=== PATIENT | male | born 1965 | race African-American/Black ===

== ENCOUNTER 2022-01-20 16:39 | Emergency (ER) | payer MEDICARE, OTHER, SELFPAY ==
[2022-01-20 19:14] VITALS: BP 132/70; PULSE 100; RESP 16; TEMP 37.2; O2SAT 98; BMI 49.5
--- NOTE | 2022-01-21 04:33 | ED.EXTPRO ---
HPI - Extremity Problem General Chief complaint: Extremity Problem Stated complaint: rt ankle pain Time Seen by Provider: 01/20/22 17:08 Source: patient Mode of arrival: EMS Limitations: no limitations History of Present Illness HPI Narrative: Patient with chronic right ankle problem came by ambulance no recent injury asking for Barry wrap to his right ankle which has chronic pain patient very rude refusing to be examined Related Data Allergies Allergy/AdvReac Type Severity Reaction Status Date / Time Unable to Assess Allergy Verified 01/20/22 17:08 Review of Systems Review of Systems: Yes all other systems are reviewed and are negative [facility] Social History Social History Advance Directives: No Advance Directives Information Provided: No Physical Exam Vital Signs: Vital Signs: Last Vital Signs Temp 98.9 F 01/20/22 19:14 Pulse 100 01/20/22 19:14 Resp 16 01/20/22 19:14 BP 132/70 01/20/22 19:14 Pulse Ox 98 01/20/22 19:14 O2 Del Method 01/20/22 19:14 BMI result Body Mass Index 49.5 Extrem: Other: Right ankle; No obvious deformity no bony tenderness slight soft tissue swelling neurovascular intact MDM - Extremity (Nontraumatic) MDM Narrative Medical decision making narrative: Barry wrap was applied by the nurse discharge patient home Discharge Plan Discharge Clinical Impression: Ankle pain, right Patient Disposition: Home, Self-Care Instructions: Ankle Sprain (ED) Additional Instructions: Local care as advised Take Tylenol/Motrin Apply Barry wrap Interventions: LWBS Worksheet Last Done: 01/21/22 01:06
== END 2022-01-21 04:46 | disposition home or self-care (01) ==
PROVIDERS: Emergency Provider Internal Medicine
DX: M25.571 Pain in right ankle and joints of right foot (principal)
CPT/HCPCS: 99282

== ENCOUNTER 2022-01-26 03:02 | Emergency (ER) | payer MEDICARE, OTHER, SELFPAY ==
--- NOTE | 2022-01-26 03:40 | PC.NURSE ---
pt in wheelchair in waiting room attempted to use the bathroom and was incont of large amount of urine all over the floor. 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 pt ambulated to chair in triage with steady giat.
[2022-01-26 03:42] VITALS: BP 149/96; PULSE 98; RESP 16; TEMP 36.9; O2SAT 99; BMI 49.5
--- NOTE | 2022-01-26 03:53 | PC.NURSE ---
xr attempted and pt refused. pt states he doesnt need a xr and just wants a ice pack . during this time the pt was using a hair comb and was combing his hair with the affected wrist. no deformity noted. ice pack given to pt per request. this is the 2nc xr in the past week.
[2022-01-26 06:40] VITALS: BP 162/89; PULSE 102; RESP 14; TEMP 36.6; O2SAT 95
--- OUTSIDE RECORDS SUMMARY | 2022-01-26 08:54 | XMS_ITS | Continuity of Care Document ---
:1965 Author Organization [facility] Address [address] [place] [address]- Care Team Providers Name Role Phone Not on Staff, PCP Primary Care Physician Unavailable Encounter [facility] [place] Date(s): 01/24/22 - 01/25/22 [facility] [address] [place] [address]- Discharge Disposition: A-D/C Home Attending Physician: Devika Duque DO Admitting Physician: Devika Duque DO Referring Physician: Not on Staff, Referring MD Allergies, Adverse Reactions, Alerts No Known Medication Allergies Medications Invega Hafyera Intramuscular, Once a month, 0 Refills, Maintenance, 01/23/22 0:39:00 EDT, Partial fill upon patientrequest if the prescription is for a schedule II opioid drug. Start Date: 01/23/22 Status: Orderednaproxen 250 mg oral tablet 250 mg, 1, tablet, By Mouth, 2 times a day, for 7 days, # 14 tablet, Refills 0, Tot. Refills 0, Acute 01/30/22 0:47:00 EDT, 01/23/22 0:47:00 EDT, Print Requisition, Partial fill upon patient request ifthe prescription is for a schedule II opioid drug. Start Date: 01/23/22 Stop Date: 01/30/22 Status: Ordered Problem List Condition Confirmation Course Effective Dates Status Health Stat us Informant Severe obesity Confirmed Active Vital Signs Most recent to oldest [Reference Range]: 1 Oxygen Saturation [94-100 %] 96 % (01/24/22 10:18 PM) Pulse Rate [55-90 bpm] 95 bpm *H* (01/24/22 10:18 PM) Blood Pressure [90-138/55-84 mm Hg] 118/63 mm Hg (01/24/22 10:18 PM) Respiratory Rate [16-30 br/min] 17 br/min (01/24/22 10:18 PM) Temperature [96.8-100.4 DegF] 99.2 DegF (01/24/22 10:18 PM) Mode of Delivery (Oxygen) Room air (01/24/22 10:18 PM) Temperature Route Oral (01/24/22 10:18 PM) Social History Social History Type Response Smoking Status 10 or more cigarettes (1/2 p ack or more)/day in last 30 days entered on: 01/21/22 Sex Patient Care team information PersonnelName: Not on Staff, PCP
--- OUTSIDE RECORDS SUMMARY | 2022-01-26 08:54 | XMS_ITS | Continuity of Care Document ---
:1965 Author Organization [facility] Address [address] [place] [address]- Care Team Providers Name Role Phone Not on Staff, PCP Primary Care Physician Unavailable [place] [facility] [place] 01/01/22 [facility] [address] [place] [address]- Encounter Diagnosis Right foot pain (Final) - 01/01/22 Discharge Disposition: A-D/C Home Attending Physician: Jose Hallman MD Admitting Physician: Jose Hallman MD Referring Physician: Not on Staff, Referring MD Allergies, Adverse Reactions, Alerts No Known Medication Allergies Vital Signs Most recent to oldest [Reference 1 2 3 Range]: Oxygen Saturation [94-100 %] 100 % 98 % 99 % (01/01/22 12:07 PM) (01/01/22 8:15 AM) (01/01/22 3:46 AM) Pulse Rate [55-90 bpm] 92 bpm 96 bpm 94 bpm *H* *H* *H* (01/01/22 12:07 PM) (01/01/22 8:15 AM) (01/01/22 3:46 AM) Blood Pressure [90-138/55-84 mm 112/87 mm Hg 142/101 mm Hg 170/129 mm Hg Hg] (01/01/22 12:07 PM) *H* *H* (01/01/22 8:15 AM) (01/01/22 3:46 AM ) Respiratory Rate [16-30 br/min] 18 br/min 18 br/min (01/01/22 12:07 PM) (01/01/22 3:46 AM) Temperature [96.8-100.4 DegF] 97.9 DegF (01/01/22 8:15 AM) Mode of Delivery (Oxygen) Room air Room air Room a ir (01/01/22 12:07 PM) (01/01/22 8:15 AM) (01/01/22 3:46 AM) Blood pressure sites Arm, right Arm, right Arm, right (01/01/22 12:07 PM) (01/01/22 8:15 AM) (01/01/22 3:46 AM) Temperature Route Oral (01/01/22 8:15 AM) Care Team PersonnelName: Not on Staff, PCP
--- OUTSIDE RECORDS SUMMARY | 2022-01-26 08:54 | XMS_ITS | Continuity of Care Document ---
:1965 Author Organization [facility] Address [address] [place] [address]- Care Team Providers Name Role Phone Not on Staff, PCP Primary Care Physician Unavailable Encounter [facility] [place] Date(s): 01/04/22 - 01/04/22 [facility] [address] [place] [address]- Discharge Disposition: A-D/C Walkout Attending Physician: Not on Staff, Attending MD Admitting Physician: Not on Staff, Admitting MD Referring Physician: Not on Staff, Referring MD Allergies, Adverse Reactions, Alerts No Known Medication Allergies Care Team PersonnelName: Not on Staff, PCP
--- OUTSIDE RECORDS SUMMARY | 2022-01-26 08:54 | XMS_ITS | Continuity of Care Document ---
:1965 Author Organization [facility] Address [address] [place] [address]- Care Team Providers Name Role Phone Not on Staff, PCP Primary Care Physician Unavailable [place] [facility] [place]22 [facility] [address] [place] [address]- Discharge Disposition: A-D/C Walkout Attending Physician: Not on Staff, Attending MD Admitting Physician: Not on Staff, Admitting MD Referring Physician: Not on Staff, Referring MD Allergies, Adverse Reactions, Alerts No Known Medication Allergies Vital Signs Most recent to oldest [Reference Range]: 1 2 Oxygen Saturation [94-100 %] 98 % 100 % (01/16/22 2:25 PM) (01/16/22 2:15 PM) Pulse Rate [55-90 bpm] 105 bpm 103 bpm *H* *H* (01/16/22 2:25 PM) (01/16/22 2:15 PM) Blood Pressure [90-138/55-84 mm Hg] 123/83 mm Hg (01/16/22 2:25 PM) Respiratory Rate [16-30 br/min] 20 br/min (01/16/22 2:25 PM) Temperature [96.8-100.4 DegF] 97.4 DegF (01/16/22 2:25 PM) Mode of Delivery (Oxygen) Room air Room air (01/16/22 2:25 PM) (01/16/22 2:15 PM) Temperature Route Oral (01/16/22 2:25 PM) Care Team PersonnelName: Not on Staff, PCP
--- OUTSIDE RECORDS SUMMARY | 2022-01-26 08:54 | XMS_ITS | Continuity of Care Document ---
:1965 Author Organization [facility] Address [address] [place] [address]- Care Team Providers Name Role Phone Not on Staff, PCP Primary Care Physician Unavailable Encounter [facility] [place] Date(s): 01/15/22 - 01/16/22 [facility] [address] [place] [address]- Discharge Disposition: A-D/C Walkout Attending Physician: Not on Staff, Attending MD Admitting Physician: Not on Staff, Admitting MD Referring Physician: Not on Staff, Referring MD Allergies, Adverse Reactions, Alerts No Known Medication Allergies Vital Signs Most recent to oldest [Reference Range]: 1 2 Oxygen Saturation [94-100 %] 100 % 97 % (01/15/22 7:31 PM) (01/15/22 7:05 PM) Pulse Rate [55-90 bpm] 100 bpm 93 bpm *H* *H* (01/15/22 7:31 PM) (01/15/22 7:05 PM) Blood Pressure [90-138/55-84 mm Hg] 147/100 mm Hg *H* (01/15/22 7:31 PM) Respiratory Rate [16-30 br/min] 18 br/min (01/15/22 7:31 PM) Temperature [96.8-100.4 DegF] 98.9 DegF (01/15/22 7:31 PM) Mode of Delivery (Oxygen) Room air (01/15/22 7:31 PM) Blood pressure sites Arm, left (01/15/22 7:31 PM) Temperature Route Oral (01/15/22 7:31 PM) Care Team PersonnelName: Not on Staff, PCP
--- OUTSIDE RECORDS SUMMARY | 2022-01-26 08:54 | XMS_ITS | Continuity of Care Document ---
:1965 Author Organization [facility] Address [address] [place] [address]- Care Team Providers Name Role Phone Not on Staff, PCP Primary Care Physician Unavailable Encounter [facility] [place] Date(s): 01/14/22 - 01/15/22 [facility] [address] [place] [address]- Discharge Disposition: A-D/C Walkout Attending Physician: Not on Staff, Attending MD Admitting Physician: Not on Staff, Admitting MD Referring Physician: Not on Staff, Referring MD Allergies, Adverse Reactions, Alerts No Known Medication Allergies Vital Signs Most recent to oldest 1 2 3 [Reference Range]: Oxygen Saturation [94-100 %] 99 % 99 % 98 % (01/15/22 12:58 PM) (01/15/22 9:28 AM) (01/15/22 5: 46 AM) Pulse Rate [55-90 bpm] 93 bpm 92 bpm 88 bpm *H* *H* (01/15/22 5:46 AM ) (01/15/22 12:58 PM) (01/15/22 9:28 AM) Blood Pressure [90-138/55-84 168/109 mm Hg 169/108 mm Hg 161 /110 mm Hg mm Hg] *H* *H* *H* (01/15/22 12:58 PM) (01/15/22 9:28 AM) (01/15/22 5: 46 AM) Respiratory Rate [16-30 18 br/min 18 br/min 18 br/mi n br/min] (01/15/22 12:58 PM) (01/15/22 9:28 AM) (01/15/22 4: 30 AM) Temperature [96.8-100.4 DegF] 98.2 DegF 98 DegF (01/15/22 4:30 AM) (01/15/22 12:56 AM) Mode of Delivery (Oxygen) Room air Room air Room a ir (01/15/22 12:58 PM) (01/15/22 9:28 AM) (01/15/22 5: 46 AM) Blood pressure sites Arm, right Arm, right Arm, left (01/15/22 12:58 PM) (01/15/22 9:28 AM) (01/15/22 5: 46 AM) Temperature Route Oral Oral Oral (01/15/22 12:58 PM) (01/15/22 9:28 AM) (01/15/22 4: 30 AM) Care Team PersonnelName: Not on Staff, PCP
--- OUTSIDE RECORDS SUMMARY | 2022-01-26 08:54 | XMS_ITS | Continuity of Care Document ---
:1965 Author Organization [facility] Address [address] [place] [address]- Care Team Providers Name Role Phone Not on Staff, PCP Primary Care Physician Unavailable [place] [facility] [place] 01/02/22 - 01/03/22 [facility] [address] [place] [address]- Discharge Disposition: A-D/C Home Attending Physician: Dangelo Cotto MD Admitting Physician: Dangelo Cotto MD Referring Physician: Not on Staff, Referring MD Allergies, Adverse Reactions, Alerts No Known Medication Allergies Vital Signs Most recent to oldest [Reference 1 2 3 Range]: Oxygen Saturation [94-100 %] 92 % 95 % 98 % *L* (01/03/22 12:20 AM) (01/02/22 9:56 P M) (01/03/22 2:08 AM) Pulse Rate [55-90 bpm] 88 bpm 93 bpm 80 bpm (01/03/22 2:08 AM) *H* (01/02/22 9:56 PM ) (01/03/22 12:20 AM) Blood Pressure [90-138/55-84 mm 147/93 mm Hg 169/81 mm Hg 144/109 mm Hg Hg] *H* *H* *H* (01/03/22 2:08 AM) (01/03/22 12:20 AM) (01/02/22 9:56 PM) Respiratory Rate [16-30 br/min] 17 br/min (01/02/22 9:56 PM) Temperature [96.8-100.4 DegF] 97.9 DegF 98 DegF (01/03/22 12:20 AM) (01/02/22 9:56 PM) Blood pressure sites Arm, left Arm, right (01/03/22 2:08 AM) (01/03/22 12:20 AM) Temperature Route Oral Oral Oral (01/03/22 2:08 AM) (01/03/22 12:20 AM) (01/02/22 9:56 PM) Care Team PersonnelName: Not on Staff, PCP
--- OUTSIDE RECORDS SUMMARY | 2022-01-26 08:55 | XMS_ITS | Continuity of Care Document ---
:1965 Author Organization [facility] Address [address] [place] [address]- Care Team Providers Name Role Phone Not on Staff, PCP Primary Care Physician Unavailable Encounter [facility] [place] Date(s): 01/18/22 - 01/19/22 [facility] [address] [place] [address]- Discharge Disposition: A-D/C Walkout Attending Physician: Not on Staff, Attending MD Admitting Physician: Not on Staff, Admitting MD Referring Physician: Not on Staff, Referring MD Allergies, Adverse Reactions, Alerts No Known Medication Allergies Vital Signs Most recent to oldest [Reference Range]: 1 2 Oxygen Saturation [94-100 %] 99 % 100 % (01/19/22 6:38 AM) (01/19/22 12:15 AM) Pulse Rate [55-90 bpm] 68 bpm 96 bpm (01/19/22 6:38 AM) *H* (01/19/22 12:15 AM) Blood Pressure [90-138/55-84 mm Hg] 122/65 mm Hg 146/ 87 mm Hg (01/19/22 6:38 AM) *H* (01/19/22 12:15 AM) Respiratory Rate [16-30 br/min] 16 br/min 16 br/mi n (01/19/22 6:38 AM) (01/19/22 12:15 AM) Temperature [96.8-100.4 DegF] 97.5 DegF 98.6 DegF (01/19/22 6:38 AM) (01/19/22 12:15 AM) Mode of Delivery (Oxygen) Room air Room air (01/19/22 6:38 AM) (01/19/22 12:15 AM) Blood pressure sites Arm, left Arm, left (01/19/22 6:38 AM) (01/19/22 12:15 AM) Temperature Route Oral Oral (01/19/22 6:38 AM) (01/19/22 12:15 AM) Care Team PersonnelName: Not on Staff, PCP
--- NOTE | 2022-01-26 09:15 | PC.NURSE ---
PT REQUESTED TO BE PUSHED OUT STATING HE WASNT WATING FOR A PROVIDER. HE IS INCONSISTENT WITH COMPLAINTS. DEMANDING TO HAVE WRIST AND LEGS WRAPPED
== END 2022-01-26 09:30 | disposition left against medical advice (07) ==
PROVIDERS: Emergency Provider Emergency Medicine
DX: M25.532 Pain in left wrist (principal)
CPT/HCPCS: 99282

== ENCOUNTER 2022-02-19 19:31 | Emergency (ER) | payer MEDICARE, OTHER, SELFPAY ==
[2022-02-19 20:00] VITALS: BP 130/70; BP 132/74; PULSE 80; PULSE 86; RESP 21; TEMP 36.8; O2SAT 95; O2SAT 99; BMI 35.9
--- NOTE | 2022-02-19 23:15 | ED_ITS ---
HPI - Extremity Injury (Lower) General Chief Complaint: Extremity Injury, Lower Stated Complaint: right leg pain Time Seen by Provider: 02/19/22 22:30 History of Present Illness HPI Narrative: Patient is a 57-year-old male presents today with having leg swelling. Pain to the right leg. Also on the left. Patient had been having leg cramps for long time. He is homeless. Been going to different hospitals. Patient stays in a wheelchair. Patient was in the rain. Denies any coughing congestion upper respiratory symptoms denies chest pain diaphoresis. No fever no chills. Related Data Allergies Allergy/AdvReac Type Severity Reaction Status Date / Time No Known Allergies Allergy Verified 02/19/22 20:05 Review of Systems Review of Systems: Positive leg swelling. Patient is always in a sitting position. No chest pain or diaphoresis no fever Yes all other systems are reviewed and are negative [facility] Past Medical History Attestation statement: The following information was validated with the patient. Social History Social History Advance Directives: No Advance Directives Information Provided: No Physical Exam Vital Signs: Vital Signs: Last Vital Signs Temp 98.2 F 02/19/22 20:00 Pulse 80 02/19/22 20:00 Resp 21 H 02/19/22 20:00 BP 132/74 02/19/22 20:00 Pulse Ox 95 02/19/22 20:00 O2 Del Method 02/19/22 20:00 BMI result Body Mass Index 35.9 Appearance: Alert. Oriented X3. No acute distress. Eyes: Pupils equal, round and reactive to light. ENT: Pharynx normal. Neck: Normal inspection. Neck supple. No lymph nodes noted. No crepitus CVS: Normal heart rate and rhythm. Pulses normal. Normal S1 and S2 Respiratory: No respiratory distress. Breath sounds normal. No Wheezing. No rales Abdomen: Soft and nontender. No rigidity. No distention. good BS x4 Skin: Skin warm and dry. Normal skin color. Normal skin turgor. Extremities: lower extremity shows 2+ pitting edema bilaterally. No warmth to touch. Patient's socks were extremely wet there were removed. There is no gross lesions noted. Pulses were present. Sensation grossly intact. Neuro: Oriented X 3. No motor deficit. No sensory deficit. Moving all extermities. No slurred speech MDM - Extremity Injury (Lower) MDM Narrative Medical decision making narrative: Patient offer x-ray labs ultrasound to rule out possibility of DVT versus congestive heart failure versus liver problems causing patient to have lower extremity edema. Patient refused to have any of those studies done. Once his socks back on. Once issues back on. Is leaving. Understood the risk including heart attack strokes, congestive heart failure infections. Patient states understanding is leaving against medical advice Medical Records Attestation: I reviewed the patient's medical records. Lab Data Attestation: I reviewed the patient's lab results. Discharge Plan Discharge Clinical Impression: Edema Patient Disposition: Left Against Medical Advice Instructions: Against Medical Advice (ED), Edema (ED) Referrals: [facility] [Physician] - 02/21/22 Stand Alone Forms: Against Medical Advice
--- NOTE | 2022-02-19 23:34 | PC.NURSE ---
pt declined bloodwork, u/s, xray, offer of dry sock/shoes. d/c AMA.
== END 2022-02-19 23:36 | disposition left against medical advice (07) ==
PROVIDERS: Emergency Provider Emergency Medicine Emergency Medical Services
DX: R60.0 Localized edema (principal); M79.604 Pain in right leg
CPT/HCPCS: 99282

== ENCOUNTER 2022-02-22 18:20 | Emergency (ER) | payer MEDICARE, OTHER, SELFPAY ==
[2022-02-22 18:31] VITALS: BP 184/95; PULSE 91; O2SAT 95
[2022-02-22 18:54] VITALS: BP 116/85; PULSE 97; RESP 18; TEMP 36.7; O2SAT 99; BMI 50.1
--- NOTE | 2022-02-22 21:08 | ED.EXTPRO ---
HPI - Extremity Problem General Chief complaint: Extremity Problem Stated complaint: LEG PAIN Time Seen by Provider: 02/22/22 20:58 Source: patient Mode of arrival: EMS Limitations: no limitations History of Present Illness HPI Narrative: 57-year-old male who presents emergency department for evaluation of right-sided leg pain. Patient states that he had a football injury to his right leg in the 1970s and since then he has had chronic pain in his leg. He states the pain is worse if he is exposed to cold. He states he came to the hospital today because he had increased pain. He states that he has a constant, throbbing pain in his right hip, right knee and right leg. He states he is able to ambulate with a cane. The pain is 8/10 at its worse and is relieved by Tylenol. The patient was seen here in the emergency department on 02/19/2022 and was offered testing such as an ultrasound and an x-ray but he refused this stating that he has had these tests in the past and he signed out against medical advice. He states that he has gone to multiple hospitals for this pain. He states that he went to [facility] at least 5 times and each time they turned him out into the cold in the middle the night and this makes his pain worse. He did tell me that he is homeless he staying in a detention. He denied being ill in any other way. Patient was also seen in the emergency department on 01/21/2022 with a similar complaint. Related Data Allergies Allergy/AdvReac Type Severity Reaction Status Date / Time No Known Allergies Allergy Verified 02/19/22 20:05 Review of Systems Review of Systems: Yes all other systems are reviewed and are negative [facility] Past Medical History [facility] Narrative: Past medical history: Chronic right leg pain, obesity. Social history: He states that he is homeless and he states in a detention. He states that he gets disability money and can not solve his own home was problem. He smokes 10 cigarettes per day times many years. He denies alcohol use. He denies drug use. Medical History Severe obesity Social History Social History Advance Directives: No Advance Directives Information Provided: No Physical Exam Vital Signs: Vital Signs: Last Vital Signs Temp 98.0 F 02/22/22 18:54 Pulse 97 02/22/22 18:54 Resp 18 02/22/22 18:54 BP 116/85 02/22/22 18:54 Pulse Ox 99 02/22/22 18:54 O2 Del Method 02/22/22 18:54 BMI result Body Mass Index 50.1 Const: Other: Awake, alert, male patient, he does not appear to be in distress, does answer questions appropriately HEENT: Other: Head is normal cephalic and atraumatic Resp: Other: No respiratory distress Extrem: Other: Patient refused to get undressed. The patient's lower extremities both appear to be chronically swollen, on his right lower extremity, he has trace to 1+ pitting edema, he has no tenderness with palpation of his ankle, knee or hip. He is able to move his extremities without any difficulty. Course Course Course Narrative: 57-year-old male who presents emergency department for evaluation of chronic right lower extremity pain. Patient has been seen at least twice here in the emergency department and reports that he has been seen at least 5 times at [facility] with similar complaints. The patient refused to get undressed. On my exam of his right lower extremity he has chronic edema to his lower extremities which appears to be symmetric. He is able to move his right lower extremity without any difficulty has no significant tenderness palpation over his right hip, right knee your right ankle joints. Patient was given Tylenol 975 mg orally. The patient will be discharged. I did tell the patient that it was discharged home and he is requesting that we call an ambulance to sent him to [facility] I told him that that is not possible. I told him that if he calls 911 from this hospital that which is bring him back here. The patient got upset and told me that the wants to be transferred to a hospital in [place] which again I told him that we cannot do this. Discharge Plan Discharge Clinical Impression: Leg pain, right, Chronic pain syndrome Patient Disposition: Home, Self-Care Additional Instructions: You have pain in your right leg which is chronic. Take Tylenol (acetaminophen) 500 mg pills, 2 pills every 4 to 6 hours as needed for pain. Follow-up with your doctor in 2 days. Please return to the emergency department if your symptoms get worse or if you develop any symptoms that are concerning to you.
[2022-02-22] MEDS: Acetaminophen 325 MG TABLET 975 MG PO (21:16)
== END 2022-02-22 21:35 | disposition home or self-care (01) ==
PROVIDERS: Emergency Provider Emergency Medicine Emergency Medical Services
DX: M79.604 Pain in right leg (principal); G89.4 Chronic pain syndrome
CPT/HCPCS: 99283

== ENCOUNTER 2022-03-26 23:53 | Emergency (ER) | payer MEDICARE, OTHER, SELFPAY ==
[2022-03-27 00:04] VITALS: BP 122/86; PULSE 100; O2SAT 98
[2022-03-27 00:18] VITALS: BP 154/101; PULSE 97; RESP 14; TEMP 36.4; O2SAT 97; BMI 49.5
--- NOTE | 2022-03-27 02:00 | PC.NURSE ---
This RN took pt in wheelchair to the bathroom. This RN offered 3 time to assist pt from chair to toilet. Pt refused each offer and yelled Just get out, I can do it myself . This RN notified pt of the call button if he needed it.
--- NOTE | 2022-03-27 05:03 | PC.NURSE ---
Pt sleeping at this time. Breaths are even and unlabored. No apparent distress noted.
--- NOTE | 2022-03-27 05:21 | ED_ITS ---
HPI - Extremity Injury (Lower) General Chief Complaint: Extremity Injury, Lower Stated Complaint: right ankle,hip, and knee pain Time Seen by Provider: 03/27/22 03:00 Source: patient Mode of arrival: ambulatory History of Present Illness HPI Narrative: 57-year-old male presents with right wrist left foot pain but denies any falls and states that started today and he has already been evaluated at [facility]. Related Data Allergies Allergy/AdvReac Type Severity Reaction Status Date / Time No Known Allergies Allergy Verified 02/19/22 20:05 Review of Systems Review of Systems: Pertinent positives and negatives as stated in HPI [facility] Past Medical History Source: nursing notes reviewed Medical History Severe obesity Social History Social History Advance Directives: No Physical Exam Vital Signs: Vital Signs: Last Vital Signs Temp 97.6 F 03/27/22 00:18 Pulse 97 03/27/22 00:18 Resp 14 03/27/22 00:18 BP 154/101 H 03/27/22 00:18 Pulse Ox 97 03/27/22 00:18 O2 Del Method 03/27/22 00:18 BMI result Body Mass Index 49.5 VITAL SIGNS: Reviewed. GENERAL: Elevated BMI, Well developed, well nourished, in no acute distress. HEAD: Normocephalic/atraumatic EYES: PERRLA, EOMI EARS: Ext canals without abnormality OROPHARYNX: no oral lesions noted, posterior pharynx clear LUNGS: Normal breath sounds. No adventitious sounds or accessory muscle use. SpO2<97> CARDIOVASCULAR: Regular rate and rhythm without noted murmurs ABDOMEN: Soft, non-tender, non-distended with bowel sounds. MUSCULOSKELETAL: No tenderness, deformities, or effusions noted on gross inspection. EXTREMITIES: No cyanosis, clubbing or edema; LEFT FOOT: No obvious acute injury noted, capillary refill less than 2 seconds. SKIN: Inspection of the skin reveals no rashes NEUROLOGIC: Alert and oriented x 4. Strength and sensation to light touch were grossly intact x 4. Course Course Course Narrative: 57-year-old male with history and clinical presentation consistent with chronic pain syndrome. All previous documentation was reviewed as well as patient's recent visit to [facility]. There are no further acute findings and patient is noted to be resting comfortably and is otherwise discharged in stable condition. Discharge Plan Discharge Clinical Impression: Chronic pain, Left foot pain Patient Disposition: Home, Self-Care Instructions: Arthralgia (ED), Chronic Pain (ED) Additional Instructions: 1. Recommend [id number] Tylenol/ibuprofen as needed for pain control. Return to the ER for worsening symptoms.
--- NOTE | 2022-03-27 06:34 | PC.NURSE ---
Pt wheeled self to the bathroom with no assistance.
--- NOTE | 2022-03-27 06:59 | PC.NURSE ---
Discharge instructions reviewed with pt. Pt verbalizes understanding.
== END 2022-03-27 07:00 | disposition home or self-care (01) ==
PROVIDERS: Emergency Provider Student in an Organized Health Care Education/Training Program
DX: G89.4 Chronic pain syndrome (principal); M79.672 Pain in left foot; E66.01 Morbid (severe) obesity due to excess calories; Z68.42 Body mass index [BMI] 45.0-49.9, adult
CPT/HCPCS: 99282; 99283

== ENCOUNTER 2022-04-04 13:30 | Emergency (ER) | payer MEDICARE, OTHER, SELFPAY ==
--- NOTE | ~2022-04-04 | XR_ITS ---
EXAMINATION: XR FOOT, RIGHT CLINICAL INFORMATION: Pain COMPARISON: None TECHNIQUE: AP, lateral, and oblique views of the right foot. FINDINGS: There is no fracture or dislocation. Appropriate alignment. Joint spaces are maintained. Plantar heel spur. The soft tissues are unremarkable. XR/XR foot RT min 3V IMPRESSION: No fracture or malalignment. Plantar heel spur.
--- NOTE | ~2022-04-04 | XR_ITS ---
EXAMINATION: XR CHEST CLINICAL INFORMATION: Wheezing. COMPARISON: None TECHNIQUE: Frontal view of the chest was obtained. FINDINGS: Low lung volumes limit evaluation. There is mild prominence of the pulmonary vasculature. The heart is mildly enlarged. The mediastinal structures are unremarkable. XR/XR chest 1V IMPRESSION: Mild prominence of the pulmonary vasculature may be projectional given the low lung volumes. Mild congestion cannot be excluded.
[2022-04-04 13:41] VITALS: BP 106/65; PULSE 90; O2SAT 96
--- NOTE | 2022-04-04 14:25 | ED_ITS ---
HPI - General Adult General Chief complaint: Psychiatric Symptoms <ONEIDA Zheng - Last Filed: 04/04/22 14:35> Stated complaint: DEPRESSION <ONEIDA Zheng - Last Filed: 04/04/22 14:35> Time Seen by Provider: 04/04/22 15:57 <ONEIDA Zheng - Last Filed: 04/04/22 14:35> Source: patient and EMS <Loree Lerma NP - Last Filed: 04/05/22 01:05> Mode of arrival: EMS <Loree Lerma NP - Last Filed: 04/05/22 01:05> Limitations: no limitations <Loree Lerma NP - Last Filed: 04/05/22 01:05> History of Present Illness HPI narrative: 57-year-old male presents via EMS for crisis evaluation. States that he is depressed, has chronic pain, and is looking for housing. He denies suicidal ideation, homicidal ideation, denies ETOH and drug abuse at this time. <Loree Lerma NP - Last Filed: 04/05/22 01:05> Onset (ago): year(s) <Loree Lerma NP - Last Filed: 04/05/22 01:05> Location: right and lower extremity <Loree Lerma NP - Last Filed: 04/05/22 01:05> Radiation: non-radiation <Loree Lerma NP - Last Filed: 04/05/22 01:05> Severity: similar to prior episodes <Loree Lerma NP - Last Filed: 04/05/22 01:05> Quality: aching <Loree Lerma NP - Last Filed: 04/05/22 01:05> Pain Consistency: constant <Loree Lerma NP - Last Filed: 04/05/22 01:05> Relieving factors: none <Loree Lerma NP - Last Filed: 04/05/22 01:05> Exacerbating factors: movement <Loree Lerma NP - Last Filed: 04/05/22 01:05> Associated symptoms: denies other symptoms <Loree Lerma NP - Last Filed: 04/05/22 01:05> Treatments prior to arrival: none <Loree Lerma NP - Last Filed: 04/05/22 01:05> Related Data Allergies/adverse reactions: Allergies Allergy/AdvReac Type Severity Reaction Status Date / Time No Known Allergies Allergy Verified 04/04/22 14:29 <ONEIDA Zheng - Last Filed: 04/04/22 14:35> Review of Systems Review of Systems: Constitutional: No Fever, No Chills ENT/Mouth: No Ear Pain, No Hoarseness, No sore throat Eyes: No Eye Pain, No Swelling, No Redness, No Foreign Body Cardiovascular: No Chest Pain, No SOB Respiratory: No Cough, No Dyspnea Gastrointestinal: No Nausea, No Vomiting, No Diarrhea, No abdominal Pain Genitourinary: No Dysuria, No Hematuria Musculoskeletal: positive right foot pain, No Myalgias, No Joint Swelling Skin: No Skin lacerations, No rash Neuro: No Weakness, No Numbness, No Paresthesias, No Loss of Consciousness, No Dizziness, No Headache Psych: No Anxiety/Panic, positive Depression, no SI, no HI, no poly substance abuse <Loree Lerma NP - Last Filed: 04/05/22 01:05> Yes all other systems are reviewed and are negative <Loree Lerma NP - Last Filed: 04/05/22 01:05> [facility] Past Medical History Attestation statement: The following information was validated with the patient. <Loree Lerma NP - Last Filed: 04/05/22 01:05> Source: old records reviewed <Loree Lerma NP - Last Filed: 04/05/22 01:05> Medical History: Medical History Severe obesity <ONEIDA Zheng - Last Filed: 04/04/22 14:35> Social History Social History: Social History Advance Directives: No Advance Directives Information Provided: Yes <ONEIDA Zheng - Last Filed: 04/04/22 14:35> Physical Exam ED Vital Signs: Vital Signs - 24 hr 04/04/22 14:27 04/04/22 16:55 Temperature 97.8 F 97.9 F Pulse Rate 91 90 Respiratory Rate 20 20 Blood Pressure 151/102 H 173/88 H Pulse Oximetry 95 96 Oxygen Delivery Method Room Air Room Air BMI result Body Mass Index 49.5 <ONEIDA Zheng - Last Filed: 04/04/22 14:35> Vital Signs - 24 hr 04/04/22 14:27 04/04/22 16:55 Temperature 97.8 F 97.9 F Pulse Rate 91 90 Respiratory Rate 20 20 Blood Pressure 151/102 H 173/88 H Pulse Oximetry 95 96 Oxygen Delivery Method Room Air Room Air BMI result Body Mass Index 49.5 <Loree Lerma NP - Last Filed: 04/05/22 01:05> Appearance: Alert. Oriented X3. No acute distress. Eyes: Pupils equal, round and reactive to light. ENT: Pharynx normal. Neck: Normal inspection. Neck supple. CVS: Normal heart rate and rhythm. Pulses normal. Respiratory: No respiratory distress. Expiratory wheezing. Abdomen: Soft and nontender. Morbidly obese. Exam limited secondary to body habitus. Skin: Skin warm and dry. Normal skin color. Normal skin turgor. Extremities: Moves all extremities against resistance. Neuro: No motor deficit. No sensory deficit. Cranial nerves 2-12 intact. <Loree Lerma NP - Last Filed: 04/05/22 01:05> Course Course Course Narrative: RME--57yo M with PMHx depression c/o wanting to go to psychiatric unit. Admits to depression. Reports looking for housing, is currently home a. Denies SI/HI. Denies etoh/drug use Per EMS patient was transported to [facility] yesterday for similar complaints and escorted off properly when refused to leave after discharge Patient also reports right foot pain from previous football injury. Ambulates with cane [facility] team consult placed <ONEIDA Zheng - Last Filed: 04/04/22 14:35> RME--57yo M with PMHx depression c/o wanting to go to psychiatric unit. Admits to depression. Reports looking for housing, is currently home a. Denies SI/HI. Denies etoh/drug use Per EMS patient was transported to [facility] yesterday for similar complaints and escorted off properly when refused to leave after discharge Patient also reports right foot pain from previous football injury. Ambulates with cane [facility] team consult placed 57-year-old male presents for crisis evaluation, he is looking to talk to a caser up for housing. He states that he is homeless, and has chronic pain. He reports that he has right lower extremity pain and shoulder pain from a football injury from 1979. This patient has presented several times in the past for chronic pain, all with negative workup. X-rays were taken while he was in the emergency department waiting room, foot x-ray is negative for acute findings. I did have [facility] meet with this patient, patient denies suicidal and homicidal ideation, and is looking for homeless shelters. This patient has been difficult to manage, he has been declining lab values, and states that he only wants housing. I did explain to him that we will require lab values as well as urinalysis for placement. Patient became belligerent, and stated that we ?need to find him a place to live?. Case Management hospital social worker evaluated this patient, patient adamantly refuses to participate with case management and states that he will not work with physical therapy. At this point, we have nothing else to offer this patient. Patient was given information for shelters by care team as well as crisis. Patient's chest x-ray is negative for acute findings. Patient is medically cleared, and discharge from this facility. Patient started to threaten staffing, security needed to escort patient off of the facility. Patient has a long history a belligerent behavior upon discharge, and has been known to throw himself on the floor. <Loree Lerma NP - Last Filed: 04/05/22 01:05> Medical Decision Making Medical Decision Making Differential Diagnoses: Differential diagnosis (SI, HI, polysubstance abuse, homelessness) <Loree Lerma NP - Last Filed: 04/05/22 01:05> Consideration of admission/observation: Consideration of Admission/Observation (Patient does not require admission) <Loree Lerma NP - Last Filed: 04/05/22 01:05> Lab Attestation: I reviewed the patient's lab results. <Loree Lerma NP - Last Filed: 04/05/22 01:05> Discussion of test interpretation with radiology: Discussion of test interpretation with radiology EXAMINATION: XR CHEST CLINICAL INFORMATION: Wheezing. COMPARISON: None TECHNIQUE: Frontal view of the chest was obtained. FINDINGS: Low lung volumes limit evaluation. There is mild prominence of the pulmonary vasculature. The heart is mildly enlarged. The mediastinal structures are unremarkable. XR/XR chest 1V IMPRESSION: Mild prominence of the pulmonary vasculature may be projectional given the low lung volumes. Mild congestion cannot be excluded. EXAMINATION: XR FOOT, RIGHT CLINICAL INFORMATION: Pain? COMPARISON: None? TECHNIQUE: AP, lateral, and oblique views of the right foot. FINDINGS: There is no fracture or dislocation. Appropriate alignment. Joint spaces are maintained. Plantar heel spur. The soft tissues are unremarkable.? XR/XR foot RT min 3V IMPRESSION: No fracture or malalignment. Plantar heel spur. <Loree Lerma NP - Last Filed: 04/05/22 01:05> Chronic conditions affecting care (e.g., diabetes, HTN): Chronic conditions affecting care (e.g., diabetes, HTN) (Morbid obesity) Patient?s care impacted by: Hypertension <Loree Lerma NP - Last Filed: 1 06/06/21 01:05> Discharge Plan Discharge Clinical Impression: Severe obesity, Depression, Chronic pain, Bronchitis <ONEIDA Zheng - Last Filed: 04/04/22 14:35> Patient Disposition: Home, Self-Care <ONEIDA Zheng - Last Filed: 04/04/22 14:35> Instructions: Chronic Pain (ED), Depression (ED), Acute Bronchitis (ED) <ONEIDA Zheng - Last Filed: 04/04/22 14:35> Additional Instructions: You were evaluated for chronic pain to your foot. The x-ray of your right foot is negative for fracture and acute findings. Please call housing shelters for placement. Thank you for choosing this emergency department for evaluation. Please follow-up with primary care physician as needed. Return to the emergency department for any new, concerning, or worsening symptoms. <ONEIDA Zheng - Last Filed: 04/04/22 14:35> Interventions: [place]-Suicide Risk Severity Scale Last Done: 04/04/22 19:27 ED Discharge Assessment Last Done: 04/04/22 19:26 <ONEIDA Zheng - Last Filed: 04/04/22 14:35> Discharge Date/Time: 04/04/22 19:32 <ONEIDA Zheng - Last Filed: 04/04/22 14:35>
[2022-04-04 14:27] VITALS: BP 151/102; PULSE 91; RESP 20; TEMP 36.6; O2SAT 95; BMI 49.5
--- NOTE | 2022-04-04 16:29 | MHC.CARE ---
Care Team met with pt in ED22H. Pt was alert and oriented x3. Pt reported he was homeless and did not have anywhere to go. PT requested mental health referral due to feeling depressed but would not elaborate. Pt denied SI/HI/AVH. Plan for pt discussed with Loree Goodrich NP. Care Team will complete online [facility] referral. Care Team provided [place] [employer] along with [facility] to pt.
[2022-04-04 16:46] LABS: MANUAL DIFF FLAG NO
[2022-04-04 16:53] LABS: Basophils Percent Auto 0.6 % (0-2); Eosinophils Absolute Auto 0.1 X10*3/uL (0.0-0.4); Eosinophils Percent Auto 1.9 % (0-4); Hematocrit 36.5 % (42.0-52.0); Hemoglobin 11.3 g/dl (14.0-18.0); Imm Gran Abs Auto 0.02 X10*3/uL (0.00-0.03); Imm Gran Pct Auto 0.3 % (0.0-0.4); Lymphocytes Absolute Auto 0.8 X10*3/uL (1.2-4.9); Lymphocytes Percent Auto 12.1 % (20-40); Mean Corpuscular Hemoglobin 28.4 pg (27.0-33.0); Mean Corpuscular Volume 91.7 fL (80.0-98.0); Mean Platelet Volume 9.6 fL (9.4-12.4); Monocytes Absolute Auto 0.4 X10*3/uL (0.1-1.2); Monocytes Percent Auto 6.1 % (2-11); Neutrophils Absolute Auto 4.9 x10*3/uL (2.0-8.3); Platelet Count 329 X10*3/uL (160-400); Red Blood Count 3.98 X10*6/uL (4.60-5.80); Red Cell Distribution Width 17.1 % (11.0-16.0); White Blood Count 6.2 X10*3/uL (4.8-10.8)
[2022-04-04 16:55] VITALS: BP 173/88; PULSE 90; RESP 20; TEMP 36.6; O2SAT 96
[2022-04-04 17:10] LABS: Anion Gap 9 (12-20); Blood Urea Nitrogen 11 mg/dL (9-16); Calcium 8.7 mg/dL (8.4-10.2); Carbon Dioxide 30 mmol/L (22-29); Chloride 109 mmol/L (96-108); Creatinine Clr Calc Pharmacy 124.1; Estimated Glomerular Filt Rate > 60; Glucose Random 103 mg/dL (60-115); Potassium 3.9 mmol/L (3.3-5.1); Sodium 144 mmol/L (135-145)
--- NOTE | 2022-04-04 19:09 | MHC.CM.ED ---
Per Loree CLAY PROCESSING LABOURER, patient is requesting PT and STR. Pt told CLAY PROCESSING LABOURER he would not participate in PT. CM went to speak with patient, who is homeless about discharge plan, as pt is ready for discharge. Pt was yelling loudly at CM that he doesn't want PT, he wants to go to a fpc in the morning. Pt was yelling that we will not send him out to [facility] . Loree CLAY PROCESSING LABOURER and Kaitlin Charge nurse aware. Loree requesting security for discharge. List of shelters given to patient.
--- NOTE | 2022-04-04 19:24 | PC.NURSE ---
pt given discharge instructions all questions answered, pt requesting his feet wrapped and a phone to use. pt given homeless addresses, and wheelchair to the waiting room to use the phone. pt is alert and oriented. food and drink given.
== END 2022-04-04 19:32 | disposition home or self-care (01) ==
PROVIDERS: Nurse Practitioner Family; Emergency Provider Emergency Medicine
DX: F33.1 Major depressive disorder, recurrent, moderate (principal); G89.29 Other chronic pain; J40 Bronchitis, not specified as acute or chronic; R06.2 Wheezing; M79.671 Pain in right foot; Z20.822 Contact with and (suspected) exposure to COVID-19; Z79.899 Other long term (current) drug therapy
CPT/HCPCS: 36415; 71045; 73630; 80048; 85025; 99283

== ENCOUNTER 2022-06-21 22:16 | Emergency (ER) | payer MEDICARE, MEDICAID, SELFPAY ==
[2022-06-21 22:26] VITALS: PULSE 106; PULSE 81; RESP 16; O2SAT 96; O2SAT 97; BMI 34.8
[2022-06-21 22:50] VITALS: BP 167/110; TEMP 36.9
--- NOTE | 2022-06-21 23:22 | ED.GENADULT ---
HPI - General Adult General Chief complaint: Extremity Injury, Lower Stated complaint: leg pain Time Seen by Provider: 06/21/22 22:31 Source: patient Mode of arrival: ambulatory Limitations: no limitations History of Present Illness HPI narrative: 57 yold male presents to the ED for chronic pain exacerbation of right foot and left wrist. Patient states having chronic pain in lower extremities due to injury as a child in the 1970s. patient also states crhonic left wrist pain due to injury in the past as a child. Patient states no new trauma of extremites, new swelling, redness, calf pain, fever, chills, bluish/black discoloration, chest pain, shortness of breath, back pain, abdominal pain, symptoms, constipation, or diarrhea. Related Data Previous Rx's Medication Instructions Recorded naproxen 500 mg tablet 500 mg PO BID PRN pain 10 days #20 06/22/22 tabs Allergies Allergy/AdvReac Type Severity Reaction Status Date / Time No Known Allergies Allergy Verified 04/04/22 14:29 Review of Systems Review of Systems: chronic right foot pain and left wrist pain Yes all other systems are reviewed and are negative [facility] Past Medical History Medical History Ankle pain, right Bronchitis Chronic pain Depression Left foot pain Leg pain, right Severe obesity Social History Social History Advance Directives: No Advance Directives Information Provided: No Physical Exam ED Vital Signs: Vital Signs - 24 hr 06/21/22 22:26 06/21/22 22:50 06/22/22 00:21 Temperature 98.4 F 98.1 F Pulse Rate 81 98 Respiratory Rate 16 16 Blood Pressure 167/110 H 139/91 H Pulse Oximetry 97 95 Oxygen Delivery Method Room Air Room Air BMI result Body Mass Index 34.8 Const General: cooperative, healthy appearing, comfortable and no acute distress Orientation/consciousness: oriented to person, oriented to place, oriented to time and patient oriented x3 HENMT Head: Yes normal to inspection, Yes No palpable skull fracture present, Yes normocephalic, Yes atraumatic and No abrasion Eyes General: appearance normal, both eyes and all related structures Neck Neck: Yes normal visual inspection, Yes full ROM, Yes no lymphadenopathy, Yes no meningeal signs, Yes trachea midline, Yes supple, No anterior neck swelling and No tender Chest Chest palpation & inspection: normal inspection of the chest and normal palpation of entire chest wall Resp Effort & Inspection: normal respiratory effort and able to speak in complete sentences Auscultation: clear to auscultation bilaterally Cardio Jugular venous distension: no JVD Heart sounds: S1 normal heart sound present and S2 normal heart sound present GI Inspection: Yes normal to inspection and No abdominal wall ecchymosis Palpation (GI): Soft to palpation, not firm, nontender, no guarding and not rigid General: No CVA tenderness and Yes no CVA tenderness Back/Spine/Pelvis Back: no CVA tenderness, No CVA tenderness and No back tenderness Skin General skin exam: no rashes or lesions noted and elasticity normal Neuro Other: negative for any neuro deficits General: oriented to person, oriented to place, oriented to time, patient oriented x3, gait normal, tone normal, moves all extremities, Normal light touch and pain sensation, no meningeal signs, no focal motor deficits and CN's II-XI intact bilaterally Extrem Other: RLE: positive for venous stasis changes. Negative for any erythema, ecchymosis, calf tenderness, pitting edmea, ulcers, black gangrene, or deformity. Right dorsal aspect slight tenderness, but no crepitus and patient states this is chornic. Venous/motor/neuro exam is intact. LLE: Positive for venous stasis changes. Negative for any erythema, ecchymosis, calf tenderness, pitting edmea, ulcers, black gangrene, or deformity. Venous/motor/neuro exam is intact. LUE: negative for any erythema, swelling, ecchymosis, deformity, crepitus, wounds, or rash. no tenderness on palpation of extremities. Motor, neuro, and vascular exam is intact. General: Yes normal to inspection and Yes full ROM Psych Appearance: grossly normal, well kempt and not disheveled Course Course Course Narrative: chronic pain. has had mutliple workups for same complaints. refused any new work ups. Reevaluation(s) Reevaluation #1: Patient given Motrin to prescription for discharge. Patient having chronic pain with no new trauma or signs of any infection physical exam does not indicate DVT. History and physical exam does not indicate CHF Medications Administered Discontinued Medications Generic Name Dose Route Start Last Admin Trade Name Freq PRN Reason Stop Dose Admin Ibuprofen 800 mg 06/22/22 00:13 06/22/22 00:23 Ibuprofen 800 Mg Tablet PO 06/22/22 00:14 800 mg ONCE ONE Administration Medical Decision Making Medical Decision Making MDM Narrative: 57-year-old male seen here for chronic pain. Patient does not have any alarming or emergent symptoms. Patient would like somewhere to sleep due to outside being cold as stated by patient himself. No need for any new images. Patient given Motrin for pain. Patient sleeping comfortably in the bed. Prescription Management I considered prescription management with: Pain Medication Discharge Plan Discharge Clinical Impression: Chronic pain syndrome Patient Disposition: Home, Self-Care Instructions: Chronic Pain (ED), Venous Insufficiency (DC) Additional Instructions: You will be discharged with pain medication for chronic pain. Return to the ED for worsening foot pain, redness of lower extremities/legs, calf pain, chest pain, shortness of breath, bluish black discoloration of extremities, fever, chills, or any other concerning symptoms. Please follow-up with primary care provider. Prescriptions: New naproxen 500 mg tablet 500 mg PO BID PRN (Reason: pain) 10 Days Qty: 20 0RF Interventions: ED Discharge Assessment Last Done: 06/22/22 00:47 Discharge Date/Time: 06/22/22 00:47 Print Language: Greenlandic
[2022-06-22 00:21] VITALS: BP 139/91; PULSE 98; RESP 16; TEMP 36.7; O2SAT 95
[2022-06-22] MEDS: Ibuprofen 800 MG TABLET PO (00:23)
--- NOTE | 2022-06-22 00:45 | PC.NURSE ---
pt a&o, no sob or chest pain, pt given sandwich and a drink, Reviewed discharge instructions, pt verbalized understanding. [facility] list given and bus pass. Pt assist into the lobby by marta Fritz.
== END 2022-06-22 00:47 | disposition home or self-care (01) ==
PROVIDERS: Emergency Provider Emergency Medicine Emergency Medical Services
DX: G89.4 Chronic pain syndrome (principal); M79.671 Pain in right foot; M25.532 Pain in left wrist; E66.9 Obesity, unspecified; Z68.34 Body mass index [BMI] 34.0-34.9, adult
CPT/HCPCS: 99283; 99284

== ENCOUNTER 2022-06-22 20:31 | Emergency (ER) | payer MEDICARE, MEDICAID, SELFPAY ==
[2022-06-22 20:49] VITALS: BP 148/103; PULSE 96; RESP 20; TEMP 36.9; O2SAT 100; O2SAT 96; BMI 49.5
[2022-06-23 00:21] VITALS: BP 147/107; PULSE 87; RESP 16; TEMP 36.7; O2SAT 92
--- NOTE | 2022-06-23 00:24 | MHC.EDTECH ---
Pt refusing military exchange wireless manager in gown Bhavesh Guzman made aware
--- NOTE | 2022-06-23 00:36 | ED_ITS ---
HPI - Extremity Injury (Lower) General Chief Complaint: Extremity Injury, Lower Stated Complaint: Bilateral ankle and groin pain Time Seen by Provider: 06/23/22 00:29 Source: patient Mode of arrival: ambulatory Limitations: no limitations History of Present Illness HPI Narrative: 57-year-old male who presents emergency department for evaluation of chronic pain in his left wrist and right lower extremity. Patient states he fractured his left wrist and since that fracture is been having chronic pain. He states the pain is gotten worse over the last 1-2 days. He also states that he had his right thigh operated on and since that time he has chronic pain in his right thigh. The patient is homeless. He was seen here yesterday in the emergency department with a similar complaint he has been seen multiple times in the past with similar complaints. Related Data Previous Rx's Medication Instructions Recorded naproxen 500 mg tablet 500 mg PO BID PRN pain 10 days #20 06/22/22 tabs Allergies Allergy/AdvReac Type Severity Reaction Status Date / Time No Known Allergies Allergy Verified 04/04/22 14:29 Review of Systems Review of Systems: Yes all other systems are reviewed and are negative [facility] Past Medical History [facility] Narrative: Social history: The patient is homeless. States that he has no place to go. He states he spends most of his days at [employer]. He denies tobacco, alcohol and drug use. Medical History (Updated 06/23/22 @ 00:43 by Jonathan Baltazar MD) Ankle pain, right Bronchitis Chronic pain Depression Left foot pain Leg pain, right Severe obesity Social History Social History Advance Directives: No Advance Directives Information Provided: Yes Physical Exam Vital Signs: Vital Signs: Last Vital Signs Temp 98.1 F 06/23/22 00:21 Pulse 87 06/23/22 00:21 Resp 16 06/23/22 00:21 BP 147/107 H 06/23/22 00:21 Pulse Ox 92 06/23/22 00:21 O2 Del Method 06/23/22 00:21 BMI result Body Mass Index 49.5 General: Awake, alert, male patient does not appear to be in distress Extremities: Patient's left wrist and hand appear to be normal there is no increased warmth, swelling or soft tissue edema. The patient has full range of motion of his wrist, hand and fingers without any difficulty. Patient has no tenderness palpation of his right lower extremity. Medical Decision Making Medical Decision Making [facility] Narrative: 57-year-old male who is homeless who has been seen here previously for chronic pain in his left wrist and right leg, he was seen last night with similar compla int . The patient's physical examination is unremarkable. His presentation is consistent with a chronic pain syndrome. The patient was given Tylenol and ibuprofen and discharged. Differential Diagnosis Differential diagnosis includes was not limited to chronic pain syndrome, arthritis, acute injury Social Determinants Patient?s care significantly limited by Social Determinants of Health including: Inadequate housing Discharge Plan Discharge Clinical Impression: Chronic pain syndrome, Acute pain of left wrist, Acute pain of right lower extremity Patient Disposition: Home, Self-Care Additional Instructions: Take ibuprofen 200 mg pills, 3 pills every 6 hours as needed for pain. Take Tylenol (acetaminophen) 500 mg pills, 2 pills every 4 to 6 hours as needed for pain. Follow-up with your doctor in 2 days. Please return to the emergency department if your symptoms get worse or if you develop any symptoms that are concerning to you. Prescriptions: No Action naproxen 500 mg tablet 500 mg PO BID PRN (Reason: pain) 10 Days Qty: 20 0RF
[2022-06-23] MEDS: Ibuprofen 600 MG TABLET PO (01:33)
[2022-06-23] MEDS: Acetaminophen 325 MG TABLET 975 MG PO (01:34)
== END 2022-06-23 01:47 | disposition home or self-care (01) ==
PROVIDERS: Emergency Provider Emergency Medicine Emergency Medical Services
DX: M25.532 Pain in left wrist (principal); M79.604 Pain in right leg; Z79.899 Other long term (current) drug therapy
CPT/HCPCS: 99283

== ENCOUNTER 2022-06-23 20:58 | Emergency (ER) | payer MEDICARE, MEDICAID, SELFPAY ==
[2022-06-23 21:03] VITALS: BP 172/120; PULSE 99; O2SAT 95
[2022-06-23 21:22] VITALS: BP 139/88; PULSE 95; RESP 16; TEMP 36.7; O2SAT 96; BMI 49.5
[2022-06-23] MEDS: Acetaminophen 325 MG TABLET 650 MG PO (21:54)
--- NOTE | 2022-06-24 01:54 | ED_ITS ---
HPI - General Adult General Chief complaint: Extremity Problem Stated complaint: Rt Leg,Thigh and Scrotum Pain Time Seen by Provider: 06/24/22 01:48 Source: patient Mode of arrival: ambulatory Limitations: no limitations History of Present Illness HPI narrative: Patient homeless been here on 06/21 and 06/23 for chronic wrist and leg pain complaining of same while examining patient was sleeping in the chair without any distress looking for a place to sleep as it is snowing outside Related Data Previous Rx's Medication Instructions Recorded naproxen 500 mg tablet 500 mg PO BID PRN pain 10 days #20 06/22/22 tabs Allergies Allergy/AdvReac Type Severity Reaction Status Date / Time No Known Allergies Allergy Verified 04/04/22 14:29 Review of Systems Review of Systems: Yes all other systems are reviewed and are negative [facility] Past Medical History Medical History Ankle pain, right Bronchitis Chronic pain Depression Left foot pain Leg pain, right Severe obesity Social History Social History Advance Directives: No Physical Exam ED Vital Signs: Vital Signs - 24 hr 06/23/22 21:22 Temperature 98.0 F Pulse Rate 95 Respiratory Rate 16 Blood Pressure 139/88 Pulse Oximetry 96 Oxygen Delivery Method Room Air BMI result Body Mass Index 49.5 Appearance: Alert. Oriented X3. No acute distress. Obese ENT: Pharynx normal. Oral Mucosa moist atraumatic normocephalic Neck: Normal inspection. Neck supple. CVS: Normal heart rate and rhythm. Pulses normal. Respiratory: No respiratory distress. Equal air entry bilateral, Abdomen: Soft and nontender. Skin: Skin warm and dry. Normal skin color. Normal skin turgor. Extremities: No lower extremity edema. No calf tenderness good range of movement of right wrist and leg no signs of infection Neuro: Oriented X 3. No motor deficit. Medications Administered Discontinued Medications Generic Name Dose Route Start Last Admin Trade Name Freq PRN Reason Stop Dose Admin Acetaminophen 650 mg 06/23/22 21:47 06/23/22 21:54 Acetaminophen 325 Mg Tablet PO 06/23/22 21:48 650 mg ONCE ONE Administration Medical Decision Making Medical Decision Making [facility] Narrative: Patient homeless comes here with nonspecific complaint will discharge patient to correction Discharge Plan Discharge Clinical Impression: Homeless Patient Disposition: Home, Self-Care Instructions: Weakness (ED) Additional Instructions: Follow-up with social media intern and stay in shelters Prescriptions: No Action naproxen 500 mg tablet 500 mg PO BID PRN (Reason: pain) 10 Days Qty: 20 0RF Interventions: ED Discharge Assessment Last Done: 06/24/22 02:30
== END 2022-06-24 02:30 | disposition home or self-care (01) ==
PROVIDERS: Emergency Provider Internal Medicine
DX: M79.606 Pain in leg, unspecified (principal); M25.532 Pain in left wrist; M25.531 Pain in right wrist; N50.82 Scrotal pain; Z59.00 Homelessness unspecified

== ENCOUNTER 2022-06-24 18:26 | Emergency (ER) | payer MEDICARE, MEDICAID, SELFPAY ==
--- NOTE | ~2022-06-24 | US_ITS ---
EXAMINATION: US SCROTUM CLINICAL INFORMATION: Right testicular pain. COMPARISON: None TECHNIQUE: A sonogram of the scrotum was performed assessing garcia-scale appearance and color Doppler flow. Spectral Doppler analysis of the arterial and venous flow were performed in the testes bilaterally. FINDINGS: RIGHT: Right testicle measures 4.6 x 2.3 x 3.7 cm, volume 21 mL. No focal testicular parenchymal lesions are visualized. Spectral Doppler analysis of the arterial and venous flow is normal in the right testis. Right epididymal head is normal in size. No right hydrocele or varicocele is seen. Right epididymal Doppler flow is normal. LEFT: Left testicle measures 4.1 x 2.5 x 3.0 cm, volume 16 mL. A single punctate calcification noted in the left testis. No focal testicular parenchymal lesions are visualized. Spectral Doppler analysis of the arterial and venous flow is normal in the left testis. Left epididymal head is normal in size. Incidental note is made of an appendix epididymis. No left hydrocele or varicocele is seen. Left epididymal Doppler flow is normal. US/US scrotum doppler IMPRESSION: No significant abnormality is seen. A single punctate calcification is noted in the left testis. No evidence of testicular torsion. No evidence of epididymitis or orchitis. Incidental note is made of an appendix epididymis on the left. If the patient has any other worrisome findings, follow-up ultrasound is recommended in one year's time. If the patient has risk factors for testicular cancer (e.g. Personal history of testicular cancer, a father or brother with testicular cancer, history of cryptorchidism or maldescent, testicular atrophy, or other risk factors), no further imaging or biochemical follow-up is necessary; all that is recommended is routine monthly testicular self-examination. However, if the patient does have risk factors for testicular cancer, referral to a urologist for evaluation and determination of an optimal follow-up strategy is recommended.
--- NOTE | 2022-06-24 18:43 | ED_ITS ---
HPI - Extremity Injury (Lower) General Chief Complaint: General Medical Stated Complaint: R Leg Pain Time Seen by Provider: 06/25/22 05:02 Related Data Previous Rx's Medication Instructions Recorded naproxen 500 mg tablet 500 mg PO BID PRN pain 10 days #20 06/22/22 tabs Allergies Allergy/AdvReac Type Severity Reaction Status Date / Time No Known Allergies Allergy Verified 04/04/22 14:29 PMFSH Past Medical History Medical History Ankle pain, right Bronchitis Chronic pain Depression Left foot pain Leg pain, right Severe obesity Social History Social History Advance Directives: No Advance Directives Information Provided: No Physical Exam Vital Signs: Vital Signs: Last Vital Signs Temp 97.6 F 06/25/22 05:12 Pulse 81 06/25/22 05:12 Resp 17 06/25/22 05:12 BP 133/77 06/25/22 05:12 Pulse Ox 95 06/25/22 05:12 O2 Del Method 06/25/22 05:12 BMI result Body Mass Index 49.5 Course Course Course Narrative: RME--57-year-old male with a past medical history of homelessness presenting to the ED complaining of right testicular pain and swelling x mos & acute on chronic right foot pain and swelling. Patient reports multiple complaints which patient reports are acute on chronic. Patient was seen and treated in our ED early this morning at 02:00 for similar symptoms discharged to a custodial UA, testicular ultrasound ordered Discharge Plan Discharge Clinical Impression: Severe obesity, Homeless Patient Disposition: Home, Self-Care Instructions: Weight Management (ED) Additional Instructions: Stay in custodial , take naproxen for pain as prescribed Prescriptions: No Action naproxen 500 mg tablet 500 mg PO BID PRN (Reason: pain) 10 Days Qty: 20 0RF Interventions: ED Discharge Assessment Last Done: 06/25/22 05:20 Discharge Date/Time: 06/25/22 05:22
[2022-06-24 18:45] VITALS: BP 190/112; PULSE 65; RESP 20; TEMP 36.7; O2SAT 98; BMI 49.5
[2022-06-25 05:12] VITALS: BP 133/77; PULSE 81; RESP 17; TEMP 36.4; O2SAT 95
== END 2022-06-25 05:22 | disposition home or self-care (01) ==
PROVIDERS: Emergency Provider Internal Medicine
DX: E66.01 Morbid (severe) obesity due to excess calories (principal); M79.604 Pain in right leg; N50.819 Testicular pain, unspecified; R10.2 Pelvic and perineal pain; Z59.00 Homelessness unspecified
CPT/HCPCS: 76870; 93975; 99283; 99284

== ENCOUNTER 2022-07-04 15:55 | Emergency (ER) | payer MEDICARE, MEDICAID, SELFPAY ==
[2022-07-04 16:02] VITALS: BP 146/98; PULSE 42; O2SAT 98
[2022-07-04 16:25] VITALS: BP 137/116; PULSE 94; RESP 18; TEMP 36.8; O2SAT 98; BMI 50.3
--- NOTE | 2022-07-04 16:25 | ED_ITS ---
HPI - Extremity Problem General Chief complaint: General Medical <ONEIDA Gillespie - Last Filed: 07/04/22 16:34> Stated complaint: case leg pain <ONEIDA Gillespie - Last Filed: 07/04/22 16:34> Time Seen by Provider: 07/04/22 23:25 <ONEIDA Gillespie - Last Filed: 07/04/22 16:34> Source: patient <Hubert Blount MD - Last Filed: 07/05/22 00:47> Mode of arrival: EMS <Hubert Blount MD - Last Filed: 07/05/22 00:47> Limitations: no limitations <Hubert Blount MD - Last Filed: 07/05/22 00:47> History of Present Illness HPI Narrative: Patient morbidly obese been here multiple times homeless sleeping in the car complaining of bilateral foot pain no recent trauma patient does have a flatfoot no open wounds, patient asking for food on arrival <Hubert Blount MD - Last Filed: 07/05/22 00:47> Related Data Home medications: Previous Rx's Medication Instructions Recorded naproxen 500 mg tablet 500 mg PO BID PRN pain 10 days #20 06/22/22 tabs <ONEIDA Gillespie - Last Filed: 07/04/22 16:34> Allergies/Adverse reactions: Allergies Allergy/AdvReac Type Severity Reaction Status Date / Time No Known Allergies Allergy Verified 04/04/22 14:29 <ONEIDA Gillespie - Last Filed: 07/04/22 16:34> Review of Systems Review of Systems: Yes all other systems are reviewed and are negative <Hubert Blount MD - Last Filed: 07/05/22 00:47> PMFSH Past Medical History Medical History: Medical History Ankle pain, right Bronchitis Chronic pain Depression Left foot pain Leg pain, right Severe obesity <ONEIDA Gillespie - Last Filed: 07/04/22 16:34> Social History Social History: Social History Advance Directives: No Advance Directives Information Provided: No <ONEIDA Gillespie - Last Filed: 07/04/22 16:34> Physical Exam Vital Signs: Vital Signs: Last Vital Signs Temp 97.9 F 07/04/22 21:49 Pulse 92 07/04/22 21:49 Resp 15 07/04/22 21:49 BP 138/100 H 07/04/22 21:49 Pulse Ox 97 07/04/22 21:49 O2 Del Method 07/04/22 21:49 BMI result Body Mass Index 50.3 <ONEIDA Gillespie - Last Filed: 07/04/22 16:34> Vital Signs: Last Vital Signs Temp 97.9 F 07/04/22 21:49 Pulse 92 07/04/22 21:49 Resp 15 07/04/22 21:49 BP 138/100 H 07/04/22 21:49 Pulse Ox 97 07/04/22 21:49 O2 Del Method 07/04/22 21:49 BMI result Body Mass Index 50.3 <Hubert Blount MD - Last Filed: 07/05/22 00:47> Appearance: Alert. Oriented X3. No acute distress. Obese sitting on the wheelchair Eyes: PERRLA, No Nystagmus ENT: Pharynx normal. Oral Mucosa moist Neck: Normal inspection. Neck supple. CVS: Normal heart rate and rhythm. Pulses normal. Respiratory: No respiratory distress. Equal air entry bilateral, Abdomen: Soft and nontender. Skin: Skin warm and dry. Normal skin color. Normal skin turgor. Extremities: No lower extremity edema. No calf tenderness flatfoot bilateral no open wound seen nontender Neuro: Oriented X 3. No motor deficit. <Hubert Blount MD - Last Filed: 07/05/22 00:47> Course Course Course Narrative: RME - 57 yo M, past medical history of chronic pain and obesity, with complaints of left foot pain. He is currently homeless. He reports that he has had no injury to his feet, but reports that his left foot is painful and swollen. He states that he has been sleeping in his car as he has no where else to go. He reports that he has had urinary incontinence. He is requesting to have someone look at his left leg, left foot, a hot meal, and pain medication. He states I will literally out there in the elements, I'm disabled and have no where else to go Plan - UA ordered. Social work consult? <ONEIDA Gillespie - Last Filed: 07/04/22 16:34> Medical Decision Making Medical Decision Making [facility] Narrative: Patient homeless asking for food and to stay in the ER when nonspecific chronic leg pain will discharge patient home <Hubert Blount MD - Last Filed: 07/05/22 00:47> Discharge Plan Discharge Clinical Impression: Homeless <ONEIDA Gillespie - Last Filed: 07/04/22 16:34> Patient Disposition: Home, Self-Care <ONEIDA Gillespie - Last Filed: 07/04/22 16:34> Instructions: Leg Pain (ED) <ONEIDA Gillespie - Last Filed: 07/04/22 16:34> Additional Instructions: Follow-up with social service worker for placement <ONEIDA Gillespie - Last Filed: 07/04/22 16:34> Prescriptions: No Action naproxen 500 mg tablet 500 mg PO BID PRN (Reason: pain) 10 Days Qty: 20 0RF <ONEIDA Gillespie - Last Filed: 07/04/22 16:34> Interventions: ED Discharge Assessment Last Done: 07/04/22 23:50 <ONEIDA Gillespie - Last Filed: 07/04/22 16:34> Discharge Date/Time: 07/04/22 23:52 <ONEIDA Gillespie - Last Filed: 07/04/22 16:34>
--- NOTE | 2022-07-04 18:47 | MHC.EDTECH ---
pt refused to give urine sample ,paco rivera aware .
--- OUTSIDE RECORDS SUMMARY | 2022-07-04 20:48 | XMS_ITS | Continuity of Care Document ---
:1965 Author Organization [facility] Address [address] [place] [address]- Care Team Providers Name Role Phone Not on Staff, PCP Primary Care Physician Unavailable Encounter [facility] Date(s): 03/16/22 - 03/16/22 [facility] [address] [place] [address]- Encounter Diagnosis Homeless (Final) - 03/16/22 Discharge Disposition: A-D/C Home Attending Physician: Jesus Iqbal MD Admitting Physician: Jesus Iqbal MD Referring Physician: Not on Staff, Referring MD Allergies, Adverse Reactions, Alerts No Known Allergies Immunizations Not Given Vaccine Date Status Refusal Reason tetanus/diphtheria/pertussis, acel(Tdap) 02/06/22 Not Giv en Patient Refuses Medications Walker See Instructions, # 1 each, Maintenance, dispense one rolling walker, 02/09/22 10:10:00 EDT, Supply Start Date: 02/09/22 Status: Ordered Problem List Condition Confirmation Course Effective Dates Status Health Stat us Informant Severe obesity Confirmed Active Vital Signs Most recent to oldest [Reference Range]: 1 2 Height 183 cm 183 cm (03/16/22 5:36 PM) (03/16/22 5:17 PM) Weight 166 kg 166 kg (03/16/22 5:36 PM) (03/16/22 5:17 PM) Oxygen Saturation [94-100 %] 100 % (03/16/22 5:17 PM) Pulse Rate [55-90 bpm] 96 bpm *H* (03/16/22 5:17 PM) Body Mass Index [18.5-24.99 kg/m2] 49.57 kg/m2 *>HHI* (03/16/22 5:17 PM) Blood Pressure [90-138/55-84 mm Hg] 136/87 mm Hg (03/16/22 5:17 PM) Respiratory Rate [16-30 br/min] 19 br/min (03/16/22 5:17 PM) Temperature [96.8-100.4 DegF] 98.4 DegF (03/16/22 5:17 PM) Mode of Delivery (Oxygen) Room air (03/16/22 5:17 PM) Blood pressure sites Arm, right (03/16/22 5:17 PM) Temperature Route Oral (03/16/22 5:17 PM) Dry Weight 166 kg 166 kg (03/16/22 5:36 PM) (03/16/22 5:17 PM) Weight Obtained Via Patient/family stated (03/16/22 5:17 PM) Dry Weight Obtained Via Patient/family stated (03/16/22 5:17 PM) Social History Social History Type Response Smoking Status 10 or more cigarettes (1/2 p ack or more)/day in last 30 days entered on: 01/21/22 Sex Note Pratibha Caal DO: PERFORM Event Display: Patient Education Leaflets Authored Date: [id number] [facility] - Shelters ?? [address] [facility] Emergency Department Community Nursing Home Directory ?? EMERGENCY Shelters Important: Alcohol and drugs are absolutely forbidden in all shelters. ?? [facility] ([facility]) [address] [place] [address] Adult men and women only- no children 3 meals day served-health care and dental clinic Referral: Walk-ins are accepted/ phone calls are preferred ?? [facility] [address] [place], [place] [phone] Men only- [facility] emergency long-term- reopening 06/2012 Referrals: Must line up by 3pm. manager of supply chain for intake. ?? [facility] [address] [place] [address] Adult men and women 2 meals per day/health care nurse Referral: Must contact intake by phone before coming ?? [facility] [address] [place], [place] [id number] Adult men and women open Feb 25-August 25 3 meals day-must leave long-term by 7am Referral: First come, first serve line up begins at 5:30pm ?? [facility] [address] [place] [address] Adult men and women (one room for families with children) Referral: First come, first serve lineup begins at 3:30pm ?? [facility] [address] [place], [place]?? [address] Men only Referral:?? $300.00/month fee (1st??month kali period available) ?? [facility] [address] [place], [place]?? [address] Men only ?? [facility] [place] [address] ?? [place] [address] Women and children ?? [facility] [address] [place], [place]?? Women and children ?? [facility] (relocation and support) [place], [place] (Hotline) Emergency Abuse and Rape crises support, long-term ?? [facility] Rape/Domestic Violence Hotline Nursing Home referral ? [facility] [address] [place], [place]?? [address] Lunch and Dinner provided (Mon ???Sat: Noon and 5pm; Sun: 1 and 5pm) ?? Additional Nursing Home Options ?? [facility] [address] [facility] [phone] [place] + [place] [address] ? [facility] [address] [facility] [phone] Male + Female Beds [facility] [address] [address] [facility] [address] [phone] ?? [facility] [address] ? [facility] [address] [facility] [phone] ?? [facility] [address] ?[facility] [address] [facility] [phone] ?? [facility] [address] ? [facility] [address] [facility] [phone] By Application Only/Must Call [facility] [address] ? [facility]?? [facility] [phone] ? [facility] [address] ? [address] [facility] [address] [facility] [phone] ?? [facility] [address] ? [facility] [address] [facility] [phone] ?? [facility] [address] ?[facility] ?? [phone] ?[facility]? [place], [place]?? [phone]? Emergency short stay, women, men, families ? [address], [place]?? [phone] Families, adults, men, LGBTQ ? [facility]?[place]?[phone]?[facility] ??[place] [address]?[phone]?[facility] [place], [place] [phone] ?[place], [place] ??[phone] ? [address] [place], [place] [phone] ? [facility] [place] [phone] ? [address] [facility] [place], [place] [phone] ? [facility] [place] [phone] ?[facility] ??[place], [place] ??[phone] ? Patient Care team information Care Team PersonnelName: Not on Staff, PCP Position: [facility] Physician (General Medicine) Member Role: PCP Name: Alfredo Horta Position: [facility] ED TA [facility] Name: Jesus Iqbal MD Position: [facility] ED Medicine MD Member Role: Admitting Physician Address: Address: [address] [place] [address]- Name: Carolina Parks RN Position: [facility] ED RN W/OE and Tasks Member Role: Patient Care Provider Name: Pratibha Caal DO Position: [facility] Resident Member Role: ED Resident Address: Address: [address] [place] [address] Care Team Related PersonsName: NO ONE, PT STATES
--- OUTSIDE RECORDS SUMMARY | 2022-07-04 20:49 | XMS_ITS | Continuity of Care Document ---
:1965 Author Organization [facility] Address [address] [place] [address]- Care Team Providers Name Role Phone Not on Staff, PCP Primary Care Physician Unavailable [place] [facility] [place]): 04/11/22 - 04/25/22 [facility] [address] [place] [address], [place] [address] Discharge Disposition: A-D/C Home Attending Physician: Porter ALVAREZ, Cory Admitting Physician: Ziggy Lomas MD Referring Physician: Not on Staff, Referring MD Allergies, Adverse Reactions, Alerts No Known Allergies Immunizations Not Given Vaccine Date Status Refusal Reason tetanus/diphtheria/pertussis, acel(Tdap) 02/06/22 Not Giv en Patient Refuses Medications acetaminophen 325 mg oral tablet 650 mg, By Mouth, 3 times a day, PRN, for 10 days, Temperature Greater than 100.5, # 24 tablet, Refills 0, Tot. Refills 0, Acute 05/05/22 12:47:00 EST, Pain , Mild, 04/25/22 12:47:00 EST, Route to Pharmacy Electronically, [facility], Par... Start Date: 04/25/22 Stop Date: 05/05/22 Status: OrderedAspirin Enteric Coated 81 mg oral delayed release tablet 1 tablet = 81 mg, By Mouth, Daily, # 30 tablet, 0 Refills, Maintenance, 04/25/22 12:49:00 EST, [facility], Partial fill upon patient request if the prescription is for a schedule II opioid drug., 186, cm, 04/24/22 3:07:00 EST, Height, 19... Start Date: 04/25/22 Stop Date: 05/25/22 Status: Orderedatorvastatin 40 mg oral tablet 1 tablet = 40 mg, By Mouth, Daily, # 30 tablet, 5 Refills, Maintenance, 04/25/22 12:50:00 EST, Tablet, [facility], Partial fill upon patient request if the prescription is for a schedule II opioid drug., 186, cm, 04/24/22 3:07:00 EST, He... Start Date: 04/25/22 Stop Date: 10/22/22 Status: OrderedCoreg 3.125 mg oral tablet 3.125 mg, Tablet, By Mouth, Hold for: hr<60 while awake, 04/25/22 9:00:00 EST Start Date: 04/25/22 Stop Date: 04/25/22 Status: CompletedCoreg 3.125 mg oral tablet 3.125 mg, 1, tablet, By Mouth, 2 times a day, # 60 tablet, Refills 0, Tot. Refills 0, Maintenance, 04/25/22 12:48:00 EST, Route to Pharmacy Electronically, [facility], Partial fill upon patient request if the prescription is for a schedu... Start Date: 04/25/22 Status: OrderedInvega Sustenna 156 mg/mL intramuscular suspension, extended release 1 mL = 156 mg, Intramuscular, Every 28 days, # 4 mL, 0 Refills, Maintenance, 04/25/22 14:13:00 EST, Injection, [facility], Partial fill upon patient request if the prescription is for a schedule II opioid drug., 186, cm, 04/24/22 3:07:00... Start Date: 04/25/22 Stop Date: 07/24/22 Status: OrderedLasix 40 mg oral tablet 40 mg, 1, tablet, By Mouth, Daily, # 30 tablet, Refills 0, Tot. Refills 0, Maintenance, 04/25/22 12:48:00 EST, Route to Pharmacy Electronically, [facility], Partial fill upon patient request if the prescription is for a schedule II opioi... Start Date: 04/25/22 Status: Orderedlosartan 25 mg oral tablet 25 mg, Tablet, By Mouth, Hold for: sbp<110, 04/25/22 9:00:00 EST Start Date: 04/25/22 Stop Date: 04/25/22 Status: Completedlosartan 25 mg oral tablet 25 mg, 1, tablet, By Mouth, Daily, # 30 tablet, Refills 0, Tot. Refills 0, Maintenance, 04/25/22 12:48:00 EST, Route to Pharmacy Electronically, [facility], Partial fill upon patient request if the prescription is for a schedule II opioi... Start Date: 04/25/22 Status: Ordered Problem List Condition Confirmation Course Effective Dates Status Health Stat us Informant Severe obesity Confirmed Active Results Orders for Microbiology Reports Name Date Blood Culture 04/10/22 Blood Culture #2 04/10/22 Microbiology Reports TEST:Blood Culture STATUS:Auth (Verified) BODY SITE: SOURCE:Blood COLLECTED DATE/TIME:04/10/22 1:02 AMBlood Culture SPECIMEN DESCRIPTION : BLOOD NO SITE SPECIAL REQUESTS : NONE CULTURE : NO GROWTH 5 DAYS. REPORT STATUS : FINAL 04/15/2022TEST:Blood Culture, Second Order STATUS:Auth (Verified) BODY SITE: SOURCE:Blood COLLECTED DATE/TIME:04/10/22 1:02 AMBlood Culture, Second Order SPECIMEN DESCRIPTION : BLOOD NO SITE SPECIAL REQUESTS : NONE CULTURE : NO GROWTH 5 DAYS. REPORT STATUS : FINAL 2Radiology Reports Exam Date Time Procedure Performing Provider Status 04/10/22 1:04 PM US Retroperitoneum Comp Genoveva Vrik; Auth (Verified) Notes:(US Retroperitoneum Comp) Reason For Exam: Renal FailureRESULT: US Retroperitoneum Comp US Retroperitoneum Comp Reason: Renal Failure; Clinical Question(s): Renal Obstruction; Order Comment: COMPARISON: None. FINDINGS: Examination limited due to patient body habitus and limited mobility. Right kidney: 10.7 cm in length. No hydronephrosis. Parenchyma not well evaluated. Left kidney: 9.7 cm in length. No hydronephrosis. Parenchyma not well evaluated. Urinary bladder: Normal morphology. No stone, mass, wall thickening or debris. Liver: Partially-imaged liver is echogenic likely representing hepatic steatosis, together with lobulated contour. IMPRESSION: Limited study. No hydronephrosis. Partially-imaged hepatic steatosis with possible cirrhotic morphology. WSN: [id number] Ordering Physician: Lobito Maurer Dictated By: Kris Cid MD Dictated Date/Time: 04/10/22 1:06 pm Reviewed By: Kris Cid MD Signed By: Kris Cid MD Signed Date/Time: 04/10/22 1:06 pm Transcribed By: RADHA Transcribed Date/Time: 04/10/22 1:04 pm Exam Date Time Procedure Performing Provider Status 04/10/22 6:12 AM Chest Single Frontal View Coleman Crawford (Verified) Notes:(Chest Single Frontal View) Reason For Exam: Shortness of BreathRESULT: Chest Single Frontal View Chest Single Frontal View , AP upright Reason: Shortness of Breath; Clinical Question(s): CHF COMPARISON: None. FINDINGS: LINES AND TUBES: None. LUNGS AND PLEURA: Clear lungs. Normal pulmonary vascularity. No pleural effusion. No pneumothorax. HEART, MEDIASTINUM AND BALDEMAR: Moderate prominence of the cardiac silhouette, unchanged. Normal mediastinal and hilar contour. BONES AND SOFT TISSUES: No acute abnormality. Mild to moderate bilateral, osteoarthritis. IMPRESSION: No CHF or other acute abnormality. Moderate cardiomegaly. I have personally reviewed the images and I agree with this report. WSN: [id number] Ordering Physician: Jett Moreno Dictated By: Abhay White DO Dictated Date/Time: 04/10/22 8:32 am Reviewed By: Mateo Alfaro MD Signed By: Mateo Alfaro MD Signed Date/Time: 04/10/22 8:37 am Transcribed By: RADHA Transcribed Date/Time: 04/10/22 8:23 am Exam Date Time Procedure Performing Provider Status 04/10/22 2:42 AM US Pelvic Doppler Comp Jose Parekh; Rich (Ve rified) Notes:(US Pelvic Doppler Comp) Reason For Exam: Scrotal Pain;Other:RESULT: US Pelvic Doppler Comp US Scrotum and Contents, US Pelvic Doppler Comp Hx of Present Illness: Pt c o right testicular pain and swelling for weeks. While en route, EMS noticed garbled speech . Also c o of chronic right leg pain; Reason: Other:; Scrotal Pain; Clinical Question(s): Torsion COMPARISON: None TECHNIQUE: High-resolution sonography with grayscale, color and spectral Doppler analysis. FINDINGS: RIGHT: Right testicle size: 3.8 x 2.6 x 2.4 cm (12.6 cc). Normal right testicle size, contour and echotexture without focal lesions. Normal arterial and venous waveforms. The epididymis is unremarkable. No significant hydrocele or varicocele. LEFT: Left testicle size: 3.8 x 2.5 x 2.2 cm (11.3 cc). Normal left testicle size, contour and echotexture without focal lesions. Normal arterial and venouswaveforms. The epididymis is unremarkable. No significant hydrocele or varicocele. Other: Spermatic cords are normal. Edematous skin thickening of the scrotum measuring up to 5.5 cm on each side. IMPRESSION: 1. No evidence for testicular torsion. 2. There is marked edematous skin thickening of the scrotum measuring up to 5.5 cm on the each side.Correlate with visual inspection for cellulitis versus anasarca. I have personally reviewed the images and I agree with this report. WSN: [id number] Ordering Physician: Cady Salgado Dictated By: Abebe[Radiology] Kim ALVAREZ Dictated Date/Time: 04/10/22 7:40 am Reviewed By: Rohit Ge MD Signed By: Rohit Ge MD Signed Date/Time: 04/10/22 7:45 am Transcribed By: RADHA Transcribed Date/Time: 04/10/22 3:07 am Exam Date Time Procedure Performing Provider Status 04/10/22 2:42 AM US Scrotum and Contents Jose Parekh; Rich (V erified) Notes:(US Scrotum and Contents) Reason For Exam: Scrotal Pain;Other:RESULT: US Scrotum and Contents US Scrotum and Contents, US Pelvic Doppler Comp Hx of Present Illness: Pt c o right testicular pain and swelling for weeks. While en route, EMS noticed garbled speech . Also c o of chronic right leg pain; Reason: Other:; Scrotal Pain; Clinical Question(s): Torsion COMPARISON: None TECHNIQUE: High-resolution sonography with grayscale, color and spectral Doppler analysis. FINDINGS: RIGHT: Right testicle size: 3.8 x 2.6 x 2.4 cm (12.6 cc). Normal right testicle size, contour and echotexture without focal lesions. Normal arterial and venous waveforms. The epididymis is unremarkable. No significant hydrocele or varicocele. LEFT: Left testicle size: 3.8 x 2.5 x 2.2 cm (11.3 cc). Normal left testicle size, contour and echotexture without focal lesions. Normal arterial and venouswaveforms. The epididymis is unremarkable. No significant hydrocele or varicocele. Other: Spermatic cords are normal. Edematous skin thickening of the scrotum measuring up to 5.5 cm on each side. IMPRESSION: 1. No evidence for testicular torsion. 2. There is marked edematous skin thickening of the scrotum measuring up to 5.5 cm on the each side.Correlate with visual inspection for cellulitis versus anasarca. I have personally reviewed the images and I agree with this report. WSN: [id number] Ordering Physician: Cady Salgado Dictated By: Abebe[Radiology] Kim ALVAREZ Dictated Date/Time: 04/10/22 7:40 am Reviewed By: Rohit Ge MD Signed By: Rohit Ge MD Signed Date/Time: 04/10/22 7:45 am Transcribed By: RADHA Transcribed Date/Time: 04/10/22 3:07 am Vital Signs Most recent to oldest 1 2 3 [Reference Range]: Height 186 cm 186 cm 186 cm (04/24/22 3:07 AM) (04/23/22 10:36 PM) (04/23/22 8:04 PM) Weight 159 kg 172.7 kg 173.7 kg (04/23/22 9:55 AM) (04/16/22 6:00 PM) (04/15/22 6:05 PM) Oxygen Saturation [94-100 98 % 100 % 95 % %] (04/25/22 12:00 PM) (04/25/22 7:00 AM) (04/25/22 3:48 AM) Pulse Rate [55-90 bpm] 85 bpm 72 bpm 72 bpm (04/25/22 12:00 PM) (04/25/22 8:29 AM) (04/25/22 7:00 AM) Body Mass Index 55.3 kg/m2 [18.5-24.99 kg/m2] *>HHI* (04/11/22 5:42 PM) Blood Pressure 151/97 mm Hg 121/93 mm Hg 121/93 mm Hg [90-138/55-84 mm Hg] *H* (04/25/22 8:29 AM) (12/30/2 2 8:29 AM) (04/25/22 12:00 PM) Respiratory Rate [16-30 18 br/min 20 br/min 22 br/mi n br/min] (04/25/22 12:00 PM) (04/25/22 7:00 AM) (04/25/22 3:48 AM) Temperature [96.8-100.4 98.3 DegF 98.6 DegF 98.9 Deg F DegF] (04/25/22 12:00 PM) (04/25/22 7:00 AM) (04/25/22 3:48 AM) Liters per Minute 1 L/min 1 L/min (04/15/22 11:00 AM) (04/15/22 7:56 AM) Mode of Delivery (Oxygen) Room air Room air Room a ir (04/25/22 12:00 PM) (04/25/22 7:00 AM) (04/24/22 7:00 PM) Blood pressure sites Arm, right Arm, right Arm, left (04/25/22 12:00 PM) (04/25/22 7:00 AM) (04/25/22 3:48 AM) Temperature Route Oral Axillary Oral (04/25/22 12:00 PM) (04/25/22 7:00 AM) (04/24/22 7:00 PM) Dry Weight 191.3 kg (04/11/22 5:42 PM) Weight Obtained Via Bed scale Bed scale Bed scale (04/23/22 9:55 AM) (04/16/22 6:00 PM) (04/15/22 4:00 AM) Social History Social History Type Response Smoking Status 10 or more cigarettes (1/2 p ack or more)/day in last 30 days entered on: 01/21/22 Sex Admission evaluation note Eitan Chandra MD: MODIFY Eitan Chandra MD: MODIFY, MODIFY, MODIFY, MODIFY, MODIFY, MODIFY, MODIFY Lobito Maurer MD: MODIFY, MODIFY Lobito Maurer MD: MODIFY, MODIFY Lobito Maurer MD: MODIFY, MODIFY Lobito Maurer MD: MODIFY, MODIFY Lobito Maurer MD: MODIFY, PERFORM Lobito Maurer MD: PERFORM, MODIFY Lobito Maurer MD: MODIFY Event Display: Admission Note Authored Date: [id number] Patient: ??FARSHAD SARMIENTO ? Age:??57 Years?Sex:??Male?:??1965?? Chief Complaint/Reason for Consultation Groin pain with edema and excoriation/ pus, A&Ox4- speech became garbled during transport History of Present Illness 57 year old history significant for undetermined mental illness (self reported bipolar), Obesity Class III,??and social history of homelessness??presents with??groin pain, found to be??with testicularswelling/anasarca along with DARVIN ?? Patient is a frequent visitor to the ED department, he states that he has been [place] over thepast few months.?? Patient is morbidly obese and most of his visits to the ED have been related to leg swelling and nonspecific pain aches and pains.?? And usually no significant concerns were found atthose times and patient was discharged from the ED. ?? During this presentation patient states that he has noticed gradual worsening of scrotal swelling.?? He denied any fevers or chills.?? Continues to be able to urinate.?? He does have chronic leg swelling and he states that has been for years.?? He has not seen a physician in quite some time and he iscurrently homeless.?? He is able to ambulate however it has been getting harder and harder with the swelling.?? Currently is not on any medication and he denied any [id number] medications or illicit substances.?? Patient rarely consumes alcohol.?? However he does smoke half pack a day. ?? He denied any personal cardiac history or any family cardiac history. ?? Patient denied chest pressure or chest pain.?? He does not have any shortness of breath however he does get dyspneic when moving around which is unclear of its due to his size.?? Also denied ever having diagnosis of heart failure or heart attack or kidney or liver issues. ?? In the emergency department he underwent imaging of the scrotum with ultrasound which showed marked edema and skin thickening without any evidence of abscess.?? Blood work was significant for chronic anemia at 11.2 high bicarbonate 30 with a creatinine of 1.4 increased from 1.13 months ago.?? proBNP close to 1999 UA with trace albumin.?? Nephrology was consulted for DARVIN and patient was admitted under medicine for further work-up of anasarca/hypervolemia ?? Review of Systems Constitutional: No fever, chills or rigors?? HEENT: No headache, no blurred vision, no sorethroat?? Cardiac: No Chest pain, No palpitations, No light headedness?? Respiratory: no shortness of breath, no cough?? Gastrointestinal: No diarrhea or constipation, no nausea or abdominal pain?? Genitourinary: No Urinary frequency, urgency or dysuria?? Musculoskeletal: No muscle or bone pain?? Neurological: No headache, blurred vision, tingling or numbness or any weakness?? Extremities: leg and scrotal swelling. Skin: No itching, rash, Endocrine : No excessive thirst, Hematological / Lymphatic: No bruising Psychiatric: No stress, insomnia ?? Objective ? Vital Signs?? Temperature: 97.4 DegF (04/10/22 00:37:00) Temperature Route: Oral (04/10/22 00:37:00) Pulse Rate: 87 bpm (04/10/22 07:03:00) Respiratory Rate: 20 br/min (04/10/22 07:03:00) Systolic Blood Pressure: 132 mm Hg (04/10/22 07:03:00) Diastolic Blood Pressure:??102 mm Hg??High (04/10/22 07:03:00) Blood pressure sites: Arm, left (04/10/22 07:03:00) Mean Arterial Pressure: 108 mm Hg (04/10/22 00:37:00) Pulse Pressure: 30 mm Hg (04/10/22 07:03:00) Oxygen Saturation: 97 % (04/10/22 07:03:00) Mode of Delivery (Oxygen): Room air (04/10/22 07:03:00) Early Warning Score: 2 (04/10/22 07:03:37) ? Intake/Output? 04/10 03:36 04/10 07:00 04/09 07:00 04/08 07:00 04/07 07:00 ?? 04/10 09:28 04/10 09:28 04/10 06:59 04/09 06:59 04/08 06:59 Intake ?0 ?0 ?0 ?0 ?0 Output ?700 ?0 ?700 ?0 ?0 Net Total ? -700 ?0 ? -700 ?0 ?0 ? Physical Exam General:??Patient in no acute distress?? HEENT:??normocephalic, atraumatic, Respiratory:??bilateral equal air entry, clear to auscultation with no wheezes or crackles. Adequate respiratory rate and effort on room air. CVS:??regular rate and rhythm, S1 and S2 present, no murmurs, rubs or gallops. unable to examine JVD Abdomen:??soft, but distended large abdomen with 1+ edema. No tenderness. Rebound or rigidity. Unable to appreciate liver margins due to body mass. Extremities/:??2+ LE edema bilaterally with Significant scrotal and penile swelling. No erythema,warmth or induration.?? Neuro:??alert and oriented x3. Cranial nerves II-XII grossly intact. Moving all extremities spontaneously. Normal tones, following simple commands.?? Derm:??No signs of infection. Psych:??Normal mood and affect?? Assessment/Plan 57 year old history significant for undetermined mental illness (self reported bipolar), Obesity Class III,??and social history of ??homelessness??presents with??groin pain, found to be??with testicular swelling/anasarca along with DARVIN admitted for evolution of etiology of volume overload. ?? Anasarca Lower extremity edema extending to scrotum and abdomen. - No evidence of pulmonary edema. - ddx: R-sided HF vs Nephrotic syndrome vs Liver dysfunction. - No evidence of Nephrotic syndrome on UA, no thrombocytopenia suggesting cirrhosis (rest of labs pending). Suspect this is R-sided HF. - Physical exam is very challenging given body habitus. - Scrotal swelling without evidence of infections. - troponin elevated without any Chest complaints, EKG not revealing of acute ACS. this is most likely in setting of DARVIN. ?? Plan: - Trial Lasix, given 40mg today, needs to be Reassessed daily. - Echo pending. - f/u LFTs - f/u Troponin x1. - f/u TSH and urine studies. - Lipid panel/A1c. ?? Acute Kidney Injury - patient with significant anasarca including??scrotal swelling.??along without significant UA. - ddx: partial??Obstruction (due to??scrotal swelling)??vs ?cardiorenal vs Nephropathy - Limited Kidney US - Trial of 40mg of IV Lasix and re-assess daily - f/u urine studies. - Nephrology consulted. ?? Tobacco use: 1/2 pack daily. Declined patch. But interested in lozenges. ?? Social issues: - housing insecurity. Patient requested social work assistance, as he recently received some [employer] benefits, and would like help/guidance. - Social work consult ?? Diet: Regular DVT prophylaxis: Heparin TID Code Status: Full code ?? Patient case and plan discussed with Dr. Corazon Maurer MD Internal Medicine PGY-3 Pager: [phone] ? Attending Attestation : I have seen and examined the patient today,??04/10/2022. I have discussed the patient in detail with the resident team. I reviewed the labs, vitals, medications, imaging. Patient admitted with anasarca, DARVIN for further evaluation. Renal team consulted. Histories Allergies Allergies ?(Active and Proposed Allergies Only) NKA? (Severity: Unknown severity, Onset: Unknown) No Known Medication Allergies? (Severity: Unknown severity, Onset: Unknown) ? Past Medical History/Problem List Active Problems??(1) Severe obesity ??Bipolar disorder by patient history??(does not have formal diagnosis). ? Past Surgical History Denied previous surgeries ? Social History Alcohol Details:??Use: Current. ??Frequency: 1-2 times per week. Substance Abuse Details:??Use: Never. Tobacco Details:??Use: 10 or more cigarettes (1/2 pack or more)/day in last 30 days. Electronic Cigarette/Vaping Details:??Electronic Cigarette Use: Never. ? Family History Denied heart or kidney issues in??the family ? Medications Home Medications No medications documented.? Inpatient Medications Medications (10) Active SCHEDULED: (3) Heparin 5000 units/mL Inj (1 mL) (Heparin Inj) ??5,000 units 1 mL, Subcutaneous Injection, 3 times a day NaCl 0.9% Flush 3ml (NaCL 0.9% Flush) ??3 mL, IV Push, Every 8 hours Nicotine Lozenge 4mg (Nicotine Lozenge) ??4 mg, By Mouth, Every 4 hours CONTINUOUS: (0) PRN: (7) Acetaminophen 325 mg Tablet (Acetaminophen Tablet) ??650 mg, By Mouth, Every 4 hours Dextromethorphan-Guaifenesin 20 mg-200 mg/10 mL Liqu UD (Robitussin DM Liquid) ??10 mL, By Mouth, Every 4 hours Melatonin 3 mg Tablet (Melatonin Tablet) ??3 mg, By Mouth, Daily at bedtime NaCl 0.9% Flush 3ml (NaCL 0.9% Flush) ??3 mL, IV Push, Every 8 hours Polyethylene Glycol 17 Gm Powder (MiraLax Powder) ??17 Gm 1 pack/packet, By Mouth, Daily Senna 8.6 mg / Docusate 50 mg tablet (Docusate/Senna Tablet) ??1 tablet, By Mouth, 2 times a day Simethicone 80 mg Chewable Tablet (Simethicone Tablet) ??80 mg, Chew, 3 times a day ? Results Recent Labs BLOOD COUNT & DIFF WBC 6.1 k/mm3 ()?? 04/10/2022 01:02 RBC 3.92 m/mm3 (Low)?? 04/10/2022 01:02 Hgb 11.2 Gm/dL (Low)?? 04/10/2022 01:02 Hct 36.1 % (Low)?? 04/10/2022 01:02 MCV 92.1 femtoliters ()?? 04/10/2022 01:02 MCH 28.6 pg ()?? 04/10/2022 01:02 MCHC 31.0 g/dL (Low)?? 04/10/2022 01:02 Platelet Count 335 k/mm3 ()?? 04/10/2022 01:02 RDW-SD 56.5 femtoliters (High)?? 04/10/2022 01:02 MPV 10.1 femtoliters ()?? 04/10/2022 01:02 Nucleated RBC (Automated) 0.0 #/100 WBC'S ()?? 04/10/2022 01:02 Abs. NRBC 0.0 k/mm3 ()?? 04/10/2022 01:02 Abs. Neut 4.6 k/mm3 ()?? 04/10/2022 01:02 Abs. Lymph 0.8 k/mm3 ()?? 04/10/2022 01:02 Abs. Becker 0.6 k/mm3 ()?? 04/10/2022 01:02 Abs. Eo 0.1 k/mm3 ()?? 04/10/2022 01:02 Abs. Baso 0.0 k/mm3 ()?? 04/10/2022 01:02 Neut % 75.1 % ()?? 04/10/2022 01:02 Lymph % 12.5 % (Low)?? 04/10/2022 01:02 Becker % 9.9 % ()?? 04/10/2022 01:02 Eos % 1.5 % ()?? 04/10/2022 01:02 Baso % 0.7 % ()?? 04/10/2022 01:02 Imm Gran 0.3 % ()?? 04/10/2022 01:02 Abs. Imm Gran 0.0 k/mm3 ()?? 04/10/2022 01:02 ?? CARDIAC Nt-Probnp 1998 pg/mL (High)?? 04/10/2022 01:02 High Sensitivity Troponin (HSTnT) 38 ng/L (High)?? 04/10/2022 04:59 ?? CHEM GENERAL Sodium 145 mmol/L ()?? 04/10/2022 01:02 Potassium 3.9 mmol/L ()?? 04/10/2022 01:02 Chloride 108 mmol/L (High)?? 04/10/2022 01:02 Bicarbonate Level 30 mmol/L (High)?? 04/10/2022 01:02 Anion Gap 7 ()?? 04/10/2022 01:02 Glucose Level 101 mg/dL (High)?? 04/10/2022 01:02 BUN 14 mg/dL ()?? 04/10/2022 01:02 Creatinine-Blood 1.4 mg/dL (High)?? 04/10/2022 01:02 Estimated GFR Creatinine 59 ML/MIN/1.73 M2 ()?? 04/10/2022 01:02 Calcium 8.9 mg/dL ()?? 04/10/2022 01:02 Lactate 1.4 mmol/L ()?? 04/10/2022 01:02 ?? UA/URINALYSIS Appear/Color, Urine LIGHT YELLOW ()?? 04/10/2022 04:00 Specific [place], Urine 1.007 ()?? 04/10/2022 04:00 pH, Urine 6.0 ()?? 04/10/2022 04:00 Albumin, Urine TRACE (Abnormal)?? 04/10/2022 04:00 Glucose, Urine NEGATIVE ()?? 04/10/2022 04:00 Ketones, Urine NEGATIVE ()?? 04/10/2022 04:00 Bilirubin, Urine NEGATIVE ()?? 04/10/2022 04:00 Hemoglobin, Urine NEGATIVE ()?? 04/10/2022 04:00 Nitrite, Urine NEGATIVE ()?? 04/10/2022 04:00 Leukocyte, Urine NEGATIVE ()?? 04/10/2022 04:00 Urobilinogen NORMAL mg/dL ()?? 04/10/2022 04:00 WBC's, Urine <1 /HPF ()?? 04/10/2022 04:00 RBC's, Urine NONE SEEN /HPF ()?? 04/10/2022 04:00 Bacteria SLIGHT HPF (Abnormal)?? 04/10/2022 04:00 Squamous Epith <1 /HPF ()?? 04/10/2022 04:00 Hold Urine Culture Testing available 48 hours from time of collection. ()?? 04/10/2022 04:00 ?? VIROLOGY Influenza A PCR NEGATIVE ()?? 04/10/2022 01:06 Influenza B PCR NEGATIVE ()?? 04/10/2022 01:06 RSV PCR NEGATIVE ()?? 04/10/2022 01:06 COVID-19 PCR Specimen Source NASAL ()?? 04/10/2022 01:06 COVID-19 PCR Result NEGATIVE ()?? 04/10/2022 01:06 ? Urinalysis Albumin, Urine: TRACE Abnormal (04:00) Appear/Color, Urine: LIGHT YELLOW (04:00) Bacteria: SLIGHT Abnormal (04:00) Bilirubin, Urine: NEGATIVE (04:00) Glucose, Urine: NEGATIVE (04:00) Hemoglobin, Urine: NEGATIVE (04:00) Hold Urine Culture: Testing available 48 hours from time of collection. (04:00) Ketones, Urine: NEGATIVE (04:00) Leukocyte, Urine: NEGATIVE (04:00) Nitrite, Urine: NEGATIVE (04:00) pH, Urine: 6 (04:00) RBC's, Urine: NONE SEEN (04:00) Specific [place], Urine: 1.007 (04:00) Squamous Epith: <1 (04:00) Urobilinogen: NORMAL (04:00) WBC's, Urine: <1 (04:00) ? EKG study Event Display: ECG 12-Lead Authored Date: Please click on pdf link to open report Event Display: ECG 12-Lead Authored Date: Ventricular Rate: 81 BPM Atrial Rate: 81 BPM P-R Interval: 180 ms QRS Duration: 92 ms Q-T Interval: 386 ms QTC Calculation(Bazett): 448 ms P Wilson: 31 degrees R Wilson: 55 degrees T Wilson: 20 degrees Normal sinus rhythm Possible Left atrial enlargement Nonspecific T wave abnormality Abnormal ECG When compared with ECG of 10-APR-2022 09:55, Minimal criteria for Anterior infarct are no longer Present Confirmed by CONNIE FUNEZ MD ([id number]) on 04/16/2022 12:19:41 PM [place]: CONNIE FUNEZ MD Event Display: ECG 12-Lead Authored Date: [id number] Please click on pdf link to open report Event Display: ECG 12-Lead Authored Date: [id number] Ventricular Rate: 88 BPM Atrial Rate: 88 BPM P-R Interval: 168 ms QRS Duration: 92 ms Q-T Interval: 382 ms QTC Calculation(Bazett): 462 ms P Wilson: 32 degrees R Wilson: 63 degrees T Wilson: 35 degrees Normal sinus rhythm Low voltage QRS Cannot rule out Anterior infarct (cited on or before 19-FEB-2022) Abnormal ECG When compared with ECG of 19-FEB-2022 00:12, No significant change was found Confirmed by MALA ARROYO MD ([id number]) on 04/10/2022 11:03:54 AM [place]: MALA ARROYO MD Heart Event Display: Echocardiogram - Complete Authored Date: [id number] Transthoracic Echocardiography Report (TTE) Patient Demographics Patient Name FARSHAD SARMIENTO Date of Study 04/10/2022 Corporate Gender Male Facility Race Black Ethnicity Date of 1965 Height: 72 inches Age 57 year(s) Weight: 368.2 pounds Accession Number [id number] BSA: 2.76 m2 Room Number [id number] BMI: 49.94 kg/m2 Referring Physician Libertad Robin MD Interpreting Seferino Pisano MD Physician Computer Typesetter Chase Aquino RUST Indications Heart failure. Clinical History GROIN PAIN ANASARCA CHF MORBID OBESITY Study Data Type of Study TTE procedure:Echo Complete-(Doppler, Colorflow) with Contrast. Procedure Information:Definity was administered by RN . Study Date04/10/2022 Start Time: 02:59 PM Study Location: [facility] [place] Study Status: Bedside Patient Status: Routine Technical Quality: Fair Blood Pressure:153/101 mmHg EKG: Atrial fibrillation HR: 94 bpm Contrast Medium: Definity. Amount - 2 ml 2D Measurements LV Diastolic Dimension: 6.33 cm LV Systolic Dimension: 5.39 cm LV Septum Diastolic: 1.46 cm LV PW Diastolic: 1.47 cm AO Root Dimension: 3.2 cm RV Diastolic Dimension: 5.64 cm LA Dimension: 5.2 cm LA ESV (BP):120 ml LVOT Stroke Volume: 72.6 ml LA ESV Index: 43 ml/m2 Stroke Volume Index26.3 ml/m2 LVOT: 2.72 cm Cardiac Index:2.47 l/min/m2 Ascending Aorta:4.1 cm Doppler Measurements AV Peak Velocity: 114 cm/s MV Peak E-Wave: 78.8 cm/s AV Peak Gradient: 5.2 mmHg AV Mean Gradient: 3 mmHg MV P1/2t: 67 msec AV VTI:18.5 cm LVOT Peak Velocity: 75 cm/s MV Deceleration Time: 228 msec LVOT VTI12.5 cm MV Area (PHT): 3.28 cm2 AV Area (Continuity):3.92 cm2 PV Peak Velocity: 93.7 cm/s TR Velocity:232 cm/s PV Peak Gradient: 3.51 mmHg TR Gradient:21.53 mmHg E' Septal Velocity: 7.83 cm/s E' Lateral Velocity: 5.33 cm/s E/Med E':10.62380 E/Lat E':14.69176 Cardiac Anatomy Left Ventricle/Interventricular Septum The left ventricle is moderately dilated. The left ventricular wall thickness is moderately increased. The LV systolic function is severely reduced . The left ventricular ejection fraction is 20-25 %. There is severe global hypokinesis with regional variation. There is no evidence of left ventricular thrombus. Unable to assess diastolic function due to E/A fusion . Left Atrium/Interatrial Septum The left atrium is severely dilated. Aortic Valve The aortic valve is is poorly visualized. The aortic valve leaflet opening is normal . There is no aortic stenosis. There is no aortic regurgitation. Mitral Valve The mitral valve appears mildly thickened. Mitral leaflet excursion is mildly reduced . There is mild mitral regurgitation. Aorta The ascending aorta and aortic root are normal in size for BSA. Right Ventricle The right ventricle is moderately to severely dilated. Right ventricular systolic function is reduced. The right ventricular free wall is akinetic . Right Atrium The right atrium is severely dilated. Pulmonic Valve The pulmonic valve appears grossly normal. Tricuspid Valve The tricuspid valve is poorly visualized. Pumonary Artery An accurate pulmonary artery pressure could not be obtained. Venous Structures The inferior vena cava is not visualized. Pericardium/Extracardiac There is no significant pericardial effusion. Summary The left ventricle is moderately dilated. The left ventricular wall thickness is moderately increased. The LV systolic function is severely reduced . The left ventricular ejection fraction is 20-25 %. There is severe global hypokinesis with regional variation. There is no evidence of left ventricular thrombus. Unable to assess diastolic function due to E/A fusion . The left atrium is severely dilated. The mitral valve appears mildly thickened. Mitral leaflet excursion is mildly reduced . There is mild mitral regurgitation. The right ventricle is moderately to severely dilated. Right ventricular systolic function is reduced. The right ventricular free wall is akinetic . Comparison No prior study available for comparison. Signature Event Display: Echocardiogram - Complete Authored Date: [id number] Note Marissa Herman RN: PERFORM Event Display: Discharge/Transfer Note Hospital Authored Date: [id number] Nursing Discharge Note Entered On: 04/25/2022 17:28 EST Performed On: 04/25/2022 17:28 EST by Marissa Herman RN Nursing Discharge Note 2 Discharge Time : 04/25/2022 17:30 EST Discharge Level of Care at Discharge : Home/Longterm/Foster Care Discharge VNA/Hospice/Home Care(v001) : [facility] Patient Left Unit Via : Ambulance Patient Accompanied Off Unit with : Ambulance/Chair Van Personnel Handover Given to Transport Personnel : Yes DC Instructions Provided & Signed by Pt : Unable Patient Understands D/C Instructions : Unable Patient Instructions Discharge Signed : Yes Did Pt have Specialty Bed or Wound Vac : Yes Marissa Herman RN - 04/25/2022 17:28 Mahendra ALVAREZ, Cory: PERFORM, MODIFY Event Display: Discharge/Transfer Note Hospital Authored Date: [id number] Patient: ??FARSHAD SARMIENTO ? Age:??57 Years?Sex:??Male?:??1965?? Patient Information Discharge Location: Primary Care Physician: Not on Staff, PCP Admit Date/Time: 04/11/22 14:08 Discharge Disposition Discharge Disposition: ?? Discharge Diagnosis Acute systolic heart failure (I50.21) Liver cirrhosis (K74.60) ?? _ Discharge Medications Acetaminophen (acetaminophen 325 mg oral tablet)?650?Milligram?By Mouth?3 times a day?as needed?for 10?Days?Temperature Greater than 100.5?Pain , Mild Aspirin (Aspirin Enteric Coated 81 mg oral delayed release tablet)?1?tab(s)?81?Milligram?By Mouth?Daily?for 30?Days Atorvastatin (atorvastatin 40 mg oral tablet)?1?tab(s)?40?Milligram?By Mouth?Daily?for 30?Days Carvedilol (Coreg 3.125 mg oral tablet)?3.125?Milligram?1?tablet?By Mouth?2 times a day Furosemide (Lasix 40 mg oral tablet)?40?Milligram?1?tablet?By Mouth?Daily Losartan (losartan 25 mg oral tablet)?25?Milligram?1?tablet?By Mouth?Daily paliperidone (Invega Sustenna 156 mg/mL intramuscular suspension, extended release)?1?Milliliter?156?Milligram?Intramuscular?Every 28 days?for 90?Days ? Medications Started Acetaminophen (acetaminophen 325 mg oral tablet)?650?Milligram?By Mouth?3 times a day?as needed?for 10?Days?Temperature Greater than 100.5?Pain , Mild Aspirin (Aspirin Enteric Coated 81 mg oral delayed release tablet)?1?tab(s)?81?Milligram?By Mouth?Daily?for 30?Days Atorvastatin (atorvastatin 40 mg oral tablet)?1?tab(s)?40?Milligram?By Mouth?Daily?for 30?Days Carvedilol (Coreg 3.125 mg oral tablet)?3.125?Milligram?1?tablet?By Mouth?2 times a day Furosemide (Lasix 40 mg oral tablet)?40?Milligram?1?tablet?By Mouth?Daily Losartan (losartan 25 mg oral tablet)?25?Milligram?1?tablet?By Mouth?Daily paliperidone (Invega Sustenna 156 mg/mL intramuscular suspension, extended release)?1?Milliliter?156?Milligram?Intramuscular?Every 28 days?for 90?Days ? Medications Discontinued None Doses Changed None Allergies Allergies ?(Active and Proposed Allergies Only) NKA? (Severity: Unknown severity, Onset: Unknown) No Known Medication Allergies? (Severity: Unknown severity, Onset: Unknown) ? PCP Follow-Up/Heads-Up Patient will need follow-up with cardiology Will need to adjust medication as tolerated Hospital Course 57-year-old gentleman with a past medical history of obesity and question of history of bipolar disorder as well as social history of homelessness who presented to the hospital secondary to significantlower extremity and testicular swelling and was found to have volume overload with new onset heart failure.?? Patient was seen by cardiology team.?? He has improvement with IV diuresis. ??Echo showed??low EF 20%.?? Cardiac cath was not done as patient??noncompliant??also he got anxious and??stress test was not done. Due to complicated social situation,??home health care case manager and social sciences instructor were involved.?? They are working on arranging primary care physician for him.?? During hospital stay seen by psych. ?? Acute on chronic??systolic biventricular??heart failure NSVT LVEF of 20-25% with severe global hypokinesia, severe elevated left atrial??and right ventricular ?? -Discharging patient on??atorvastatin, aspirin,??losartan, carvedilol, Lasix -Patient will need follow-up with cardiology ?? Prediabetes: Patient did have some elevated blood sugar reading, A1c 5.8.?? Further assessment as outpatient ?? Acute kidney injury - resolved ?? Scrotal ulcer Patient with significant scrotal ulcer which is likely secondary to the??level of edema that he has.?? Further assessment as outpatient ?? Tobacco use: Patient reports 1 pack/day, currently declining nicotine patch??due to complicated social situation gaming manager and social sciences instructor Bipolar disorder: Restart Invega??as per??psych recs ? Objective Vital Signs?? Temperature: 98.3 DegF (04/25/22 12:00:00) Temperature Route: Oral (04/25/22 12:00:00) Pulse Rate: 85 bpm (04/25/22 12:00:00) Respiratory Rate: 18 br/min (04/25/22 12:00:00) Systolic Blood Pressure:??151 mm Hg??High (04/25/22 12:00:00) Diastolic Blood Pressure:??97 mm Hg??High (04/25/22 12:00:00) Blood pressure sites: Arm, right (04/25/22 12:00:00) Pulse Pressure: 54 mm Hg (04/25/22 12:00:00) Oxygen Saturation: 98 % (04/25/22 12:00:00) Mode of Delivery (Oxygen): Room air (04/25/22 12:00:00) Early Warning Score: 0 (04/25/22 12:27:52) ? . Physical Exam General?NAD, AAO HEENT?PERRLA, oropharynx clear, moist mucus membranes Pulm?CTA bilaterally, no wheezes/rhonchi/rales CV?RRR, +S1/S2, no murmurs/rubs GI?Soft, nontender, nondistended, no organomegaly, bowel sounds are present Neuro?Moves all extremities MS?no obvious deformity Psych?Mood appropriate to situation?? Pending Results Add On Lab Order ordered on 04/10/2022 Add On Lab Order ordered on 04/10/2022 Add On Lab Order ordered on 04/10/2022 Add On Lab Order ordered on 04/10/2022 BUN ordered on 04/16/2022 CBC w/ Differential ordered on 04/21/2022 COVID-19 (2018 Novel Coronavirus) PCR ordered on 04/21/2022 COVID-19 (2018 Novel Coronavirus) PCR ordered on 04/24/2022 Creatinine ordered on 04/16/2022 Electrolytes ordered on 04/16/2022 Magnesium Level ordered on 04/16/2022 Patient Instructions Abhay Rubio MD is your roll contour grinder??he will his as part of??[facility] cardiology Home Health Face to Face ^HomeHealthFTF Results Discharge Labs BLOOD BANK Blood Type O Positive ()?? 04/16/2022 11:04 Antibody Screen Negative ()?? 04/16/2022 11:04 ?? BLOOD COUNT & DIFF WBC 6.5 k/mm3 ()?? 04/24/2022 10:09 RBC 4.00 m/mm3 (Low)?? 04/24/2022 10:09 Hgb 11.5 Gm/dL (Low)?? 04/24/2022 10:09 Hct 36.7 % (Low)?? 04/24/2022 10:09 MCV 91.8 femtoliters ()?? 04/24/2022 10:09 MCH 28.8 pg ()?? 04/24/2022 10:09 MCHC 31.3 g/dL (Low)?? 04/24/2022 10:09 Platelet Count 283 k/mm3 ()?? 04/24/2022 10:09 RDW-SD 57.8 femtoliters (High)?? 04/24/2022 10:09 MPV 10.1 femtoliters ()?? 04/24/2022 10:09 Nucleated RBC (Automated) 0.0 #/100 WBC'S ()?? 04/24/2022 10:09 Abs. NRBC 0.0 k/mm3 ()?? 04/24/2022 10:09 Abs. Neut 5.0 k/mm3 ()?? 04/24/2022 10:09 Abs. Lymph 1.0 k/mm3 ()?? 04/24/2022 10:09 Abs. Becker 0.4 k/mm3 ()?? 04/24/2022 10:09 Abs. Eo 0.1 k/mm3 ()?? 04/24/2022 10:09 Abs. Baso 0.0 k/mm3 ()?? 04/24/2022 10:09 Neut % 76.2 % (High)?? 04/24/2022 10:09 Lymph % 15.3 % ()?? 04/24/2022 10:09 Becker % 5.8 % ()?? 04/24/2022 10:09 Eos % 1.8 % ()?? 04/24/2022 10:09 Baso % 0.6 % ()?? 04/24/2022 10:09 Imm Gran 0.3 % ()?? 04/24/2022 10:09 Abs. Imm Gran 0.0 k/mm3 ()?? 04/24/2022 10:09 ?? CARDIAC Nt-Probnp 1998 pg/mL (High)?? 04/10/2022 01:02 High Sensitivity Troponin (HSTnT) 35 ng/L (High)?? 04/10/2022 14:35 ?? CHEM GENERAL Sodium 142 mmol/L ()?? 04/25/2022 09:00 Potassium 4.2 mmol/L ()?? 04/25/2022 09:00 Chloride 102 mmol/L ()?? 04/25/2022 09:00 Bicarbonate Level 34 mmol/L (High)?? 04/25/2022 09:00 Anion Gap 6 ()?? 04/25/2022 09:00 Glucose Level 142 mg/dL (High)?? 04/25/2022 09:00 Glucose, POC 83 mg/dL ()?? 04/25/2022 12:25 Hemoglobin A1C (Monitoring) 5.8 % (High)?? 04/15/2022 09:27 BUN 17 mg/dL ()?? 04/25/2022 09:00 Creatinine-Blood 1.1 mg/dL ()?? 04/25/2022 09:00 Estimated GFR Creatinine 76 ML/MIN/1.73 M2 ()?? 04/25/2022 09:00 Calcium 9.1 mg/dL ()?? 04/25/2022 09:00 Phosphorus 3.0 mg/dL ()?? 04/12/2022 01:25 Magnesium 2.0 mg/dL ()?? 04/21/2022 15:20 Protein, Total 6.4 Gm/dL ()?? 04/22/2022 03:08 Albumin 3.3 Gm/dL (Low)?? 04/22/2022 03:08 AG Ratio 1.1 ()?? 04/22/2022 03:08 Alkaline Phosphatase 70 units/L ()?? 04/22/2022 03:08 AST (SGOT) 18 units/L ()?? 04/22/2022 03:08 ALT (SGPT) 8 units/L ()?? 04/22/2022 03:08 Bilirubin, Total 0.4 mg/dL ()?? 04/22/2022 03:08 Bilirubin, Direct <0.2 mg/dL ()?? 04/10/2022 01:02 Bilirubin, Indirect Direct bilirubin is less than the measureable limit. Therefore, indirect mg/dL ()?? 04/10/2022 01:02 Lactate 1.4 mmol/L ()?? 04/10/2022 01:02 ?? COAG INR 1.2 (High)?? 04/10/2022 14:35 Protime (PT) 12.0 seconds (High)?? 04/10/2022 14:35 ?? ENDOCRINE/TUMOR MARKER TSH 2.16 uIU/mL ()?? 04/10/2022 01:02 ? HEME OTHER Hold Lavender Top SPECIMEN DISCARDED AFTER 24 HOURS. ()?? 04/20/2022 06:25 ? LIPID STUDIES Cholesterol 111 mg/dL ()?? 04/10/2022 01:02 Triglycerides 66 mg/dL ()?? 04/10/2022 01:02 HDL Cholesterol 51 mg/dL ()?? 04/10/2022 01:02 LDL Cholesterol 47 mg/dL ()?? 04/10/2022 01:02 Non HDL Cholesterol 60 mg/dL ()?? 04/10/2022 01:02 ? MISC. CHEMISTRY Ammonia, Venous 20 ??mole/L ()?? 04/12/2022 01:25 Hold Gel Top SPECIMEN DISCARDED AFTER 1 WEEK ()?? 04/15/2022 00:57 ?? UA/URINALYSIS Appear/Color, Urine COLORLESS ()?? 04/10/2022 13:00 Specific [place], Urine 1.007 ()?? 04/10/2022 13:00 pH, Urine 6.0 ()?? 04/10/2022 13:00 Albumin, Urine NEGATIVE ()?? 04/10/2022 13:00 Glucose, Urine NEGATIVE ()?? 04/10/2022 13:00 Ketones, Urine NEGATIVE ()?? 04/10/2022 13:00 Bilirubin, Urine NEGATIVE ()?? 04/10/2022 13:00 Hemoglobin, Urine NEGATIVE ()?? 04/10/2022 13:00 Nitrite, Urine NEGATIVE ()?? 04/10/2022 13:00 Leukocyte, Urine NEGATIVE ()?? 04/10/2022 13:00 Urobilinogen NORMAL mg/dL ()?? 04/10/2022 13:00 WBC's, Urine <1 /HPF ()?? 04/10/2022 13:00 RBC's, Urine 2 /HPF ()?? 04/10/2022 13:00 Bacteria SLIGHT HPF (Abnormal)?? 04/10/2022 04:00 Squamous Epith <1 /HPF ()?? 04/10/2022 04:00 Hold Urine Culture Testing available 48 hours from time of collection. ()?? 04/10/2022 04:00 ?? URINE OTHER Creatinine, Urine Random 19.7 mg/dL ()?? 04/10/2022 13:00 Sodium, Urine Random 87 mmol/L ()?? 04/10/2022 13:00 Chloride, Urine Random 86 mmol/L ()?? 04/10/2022 13:00 Urea Nitrogen, Urine Random 115.4 mg/dL ()?? 04/10/2022 13:00 Osmolality, Urine Random 231 mOsm/kg ()?? 04/10/2022 13:00 Protein, Total Urine Random 6 mg/dL ()?? 04/10/2022 13:00 TP/Cr Ratio 0.30 (High)?? 04/10/2022 13:00 Creatinine, Urine 19.7 mg/dL ()?? 04/10/2022 13:00 Malb/Creat Ratio Unable to calculate mg/Gm ()?? 04/10/2022 13:00 Urine Creat For Micro Alb 19.7 mg/dL ()?? 04/10/2022 13:00 Micro-Albumin <12.0 mg/L ()?? 04/10/2022 13:00 ? VIROLOGY Influenza A PCR NEGATIVE ()?? 04/10/2022 01:06 Influenza B PCR NEGATIVE ()?? 04/10/2022 01:06 RSV PCR NEGATIVE ()?? 04/10/2022 01:06 COVID-19 PCR Specimen Source NASAL ()?? 04/21/2022 06:12 COVID-19 PCR Result NEGATIVE ()?? 04/21/2022 06:12 ? Microbiology ?? Blood Culture?? Completed?? Source: Blood Body Site: ?? Collected Dt/Tm: 04/10/2022 00:50 Last Updated Dt/Tm: 04/10/2022 00:51 ?SPECIMEN DESCRIPTION : BLOOD ??NO SITESPECIAL REQUESTS : NONECULTURE : NO GROWTH 5 DAYS.REPORT STATUS : FINAL 04/15/2022 Blood Culture #2?? Completed?? Source: Blood Body Site: ?? Collected Dt/Tm: 04/10/2022 00:50 Last Updated Dt/Tm: 04/10/2022 00:51 ?SPECIMEN DESCRIPTION : BLOOD ??NO SITESPECIAL REQUESTS : NONECULTURE : NO GROWTH 5 DAYS.REPORT STATUS : FINAL 04/15/2022 COVID-19 (2019 Novel Coronavirus) PCR?? Completed?? Source: Nasal Body Site: Nose Collected Dt/Tm: 04/17/2022 05:10 Last Updated Dt/Tm: 04/17/2022 16:39 COVID-19 (2019 Novel Coronavirus) PCR?? Collected?? Source: Nasal Body Site: Nose Collected Dt/Tm: 04/24/2022 05:56 Last Updated Dt/Tm: 04/24/2022 05:00 ? >35??minutes spent on discharge Marissa Herman RN: PERFORM Event Display: Patient Education/Instruction Authored Date: [id number] Inpatient Adult Discharge Instructions [place] [id number] Name: FARSHAD SARMIENTO : 1965 Visit: 04/11/2022 14:08:00 Current Date: 04/25/2022 13:15 Account: [id number] Inpatient Adult Discharge Instructions We would like to thank you for allowing us to assist you with your healthcare needs. The following includes patient education materials and information regarding your injury/illness. Our entire staff strives to provide an excellent experience for our patients and their families. PLEASE ENSURE YOU FOLLOW-UP PER THE INSTRUCTIONS BELOW! ?? YOUR OPINION IS IMPORTANT TO US! Please complete the survey you may receive by mail or email. Your feedback will be used to make improvements to the healthcare experiences of our patients and their families. Surveys are administered by [employer] ?? If further treatment with your primary care physician or another doctor is recommended, it is important for you to keep the appointment. Call your primary care physician or return to the Emergency Department immediately if your condition worsens, fails to improve, or new symptoms develop. If you need to find a doctor, you can call [facility] [employer] [facility] for a referral at [phone] or toll free at [phone] or log in to [email or web address].. ?? You can view and manage your care through the patient portal or by using a health care faizan of your choosing. [employer] is a website that allows you to securely view your medical information including your hospital discharge summary, office visit summaries, medications and follow-up visits. You can also request appointments, renew medications, and request access to your medical information using a health care faizan of your choosing, or just ask a question. You can enroll at [email or web address] or register during your next office visit. You have been discharged from [facility], Patient Care Unit: W4. If you have any questions regarding these instructions after you leave, please call us and we will be happy to assist you. [facility] Your Care Team Attending Physician Porter ALVAREZ, Cory Consulting Providers Dayanna ALVAREZ, Ammy Downey MD, Tala Hernandez MD, Meg Valadez MD, Ifeanyi Discharging Providers Porter ALVAREZ, Cory Reason for Admission Groin pain with edema and excoriation/ pus, A&Ox4- speech became garbled during transport Your Diagnosis Acute systolic heart failure Liver cirrhosis Tests Performed Below is a partial list of the tests performed during your hospitalization. You may have had other tests and procedures not included in this list. Please discuss all test results with your provider. Ammonia Venous Basic Metabolic Panel BUN CBC w/ Differential COMPLETE BLOOD COUNT Complete Urinalysis Comprehensive Metabolic Panel COVID-19 (2019 Novel Coronavirus) PCR?-- Results Pending -- COVID-19, RSV, and Flu A/B, Rapid PCR Creatinine DIFFERENTIAL Electrolytes GLUCOSE POC HEMOGLOBIN A1C HEPATIC FUNCTION PANEL High??Sensitivity??Troponin T HOLD GEL TUBE HOLD LAVENDER TUBE Lactate Level LIPID PANEL Magnesium Level Microalbumin Urine Phosphorus Level PROBNP Protein/Creatinine Ratio Urine PT (INR) Troponin T, High Sensitivity TSH WITH REFLEX TO FT4 Type and Screen UREA NITROGEN, URINE MG/DL Urinalysis w/hold for Urine Culture Urine Chloride Urine Creatinine Urine Osmolality Urine Sodium US Pelvic Doppler Comp US Retroperitoneum Comp US Scrotum and Contents XR Chest Single Frontal View ? You will be contacted within 72 hours with your results. Primary Care Provider Not on Staff, PCP Advance Directive Health Care Proxy on File No Patient refuses to discuss No qualifying data available. Discharge Vitals Temperature: 98.3 DegF Height: 186 cm Pulse Rate: 85 bpm Weight: 159 kg Respiratory Rate: 18 br/min Body Mass Index:??55.3 kg/m2??Critical Systolic Blood Pressure:??151 mm Hg??High Body surface area: 3.14 Diastolic Blood Pressure:??97 mm Hg??High ?? Oxygen Saturation: 98 % ?? Studies Pending All tests and labs ordered during this hospital stay have been completed unless listed below. Pleasediscuss all pending results with your provider listed above in these instructions. ?? Add On Lab Order BUN CBC w/ Differential (COMPLETE CBC WITH DIFF) COVID-19 (2019 Novel Coronavirus) PCR Creatinine Electrolytes Magnesium Level What to do next Instructions From Your Doctor Discharge Orders Discharge Medications FARSHAD SARMIENTO :1965 Visit Date:04/11/2022 Medications: Please continue your medications until treatment is completed or stopped by your provider. Medications not listed below should be discontinued. Discuss any questions related to medications with your provider. What How Much When Instructions Next Dose New Acetaminophen (acetaminophen 325 mg oral tablet) 650 Milligram Oral 3 times a day as needed for Pain , Mild Duration: 10 Days Temperature Greater than 100.5 ?? Pickup at [place] [address] As ordered New Aspirin (Aspirin Enteric Coated 81 mg oral delayed release tablet) 1 tab(s) Oral Daily Duration: 30 Days Pickup at [place] [address] [place]04/26 New Atorvastatin (atorvastatin 40 mg oral tablet) 1 tab(s) Oral Daily Duration: 30 Days Refills: 5 Pickup at [place] [address] [place]04/26 New Carvedilol (Coreg 3.125 mg oral tablet) 1 tab(s) Oral Twice a day Pickup at [place] [address] Tonight 04/25 New Furosemide (Lasix 40 mg oral tablet) 1 tab(s) Oral Daily Pickup at [place] [address] [place] morning 04/26 New Losartan (losartan 25 mg oral tablet) 1 tab(s) Oral Daily Pickup at [place] [address] Tomorrow morning 04/26 New paliperidone (Invega Sustenna 156 mg/ mL intramuscular suspension, extended release) 1 Milliliter Intramuscular Every week Pickup at [facility] As ordered Pharmacy Information [facility]: [address], [place] [id number] [phone] Test Results Below is a partial list of the most recent Laboratory test results done prior to this discharge. You may have had other tests and procedures not included in this list. Please discuss all test results with your provider. Ammonia Venous (04/12/2022) ???Ammonia, Venous - 20 ??mole/L Basic Metabolic Panel (04/25/2022) ???Sodium - 142 mmol/L???Potassium - 4.2 mmol/L???Chloride - 102 mmol/L???Bicarbonate Level - 34 mmol/L???Anion Gap - 6???Glucose Level - 142 mg/dL???BUN - 17 mg/dL???Creatinine-Blood - 1.1 mg/dL???Estimated GFR Creatinine - 76 ML/MIN/1.73 M2???Calcium - 9.1 mg/dL BUN (04/20/2022) ???BUN - 17 mg/dL CBC w/ Differential (04/24/2022) ???WBC - 6.5 k/mm3???RBC - 4.00 m/mm3???Hgb - 11.5 Gm/dL???Hct - 36.7 %???MCV - 91.8 femtoliters???MCH - 28.8 pg???MCHC - 31.3 g/dL???Platelet Count - 283 k/mm3???RDW-SD - 57.8 femtoliters???MPV - 10.1femtoliters???Nucleated RBC (Automated) - 0.0 #/100 WBC'S???Abs. NRBC - 0.0 k/mm3???Abs. Neut - 5.0 k /mm3???Abs. Lymph - 1.0 k/mm3???Abs. Becker - 0.4 k/mm3???Abs. Eo - 0.1 k/mm3???Abs. Baso - 0.0 k/mm3???Neut % - 76.2 %???Lymph % - 15.3 %???Becker % - 5.8 %???Eos % - 1.8 %???Baso % - 0.6 %???Imm Gran - 0.3 %???Abs. Imm Gran - 0.0 k/mm3 COMPLETE BLOOD COUNT (04/20/2022) ???WBC - 5.9 k/mm3???RBC - 4.03 m/mm3???Hgb - 11.6 Gm/dL???Hct - 36.5 %???MCV - 90.6 femtoliters???MCH - 28.8 pg???MCHC - 31.8 g/dL???Platelet Count - 246 k/mm3???RDW-SD - 56.4 femtoliters???MPV - 11.2femtoliters???Nucleated RBC (Automated) - 0.0 #/100 WBC'S???Abs. NRBC - 0.0 k/mm3 Complete Urinalysis (04/10/2022) ???Appear/Color, Urine - COLORLESS???Specific [place], Urine - 1.007???pH, Urine - 6.0???Albumin, Urine - NEGATIVE???Glucose, Urine - NEGATIVE???Ketones, Urine - NEGATIVE???Bilirubin, Urine - NEGATIVE???Hemoglobin, Urine - NEGATIVE???Nitrite, Urine - NEGATIVE???Leukocyte, Urine - NEGATIVE???Urobilinogen - NORMAL? ?WBC's, Urine - <1 /HPF? ?RBC's, Urine - 2 /HPF Comprehensive Metabolic Panel (04/22/2022) ???Sodium - 143 mmol/L???Potassium - 4.2 mmol/L???Chloride - 104 mmol/L???Bicarbonate Level - 30 mmol/L???Anion Gap - 9???Glucose Level - 108 mg/dL???BUN - 18 mg/dL???Creatinine-Blood - 1.3 mg/dL???Estimated GFR Creatinine - 68 ML/MIN/1.73 M2???Calcium - 8.8 mg/dL???Protein, Total - 6.4 Gm/dL???Albumin - 3.3 Gm/dL???AG Ratio - 1.1???Alkaline Phosphatase - 70 units/L???AST (SGOT) - 18 units/L???ALT (SGPT) - 8 units/L???Bilirubin, Total - 0.4 mg/dL COVID-19, RSV, and Flu A/B, Rapid PCR (04/10/2022) ???Influenza A PCR - NEGATIVE???Influenza B PCR - NEGATIVE???RSV PCR - NEGATIVE???COVID-19 PCR Specimen Source - NASAL???COVID-19 PCR Result - NEGATIVE Creatinine (04/20/2022) ???Creatinine-Blood - 1.3 mg/dL???Estimated GFR Creatinine - 66 ML/MIN/1.73 M2 DIFFERENTIAL (04/20/2022) ???Abs. Neut - 4.0 k/mm3???Abs. Lymph - 1.4 k/mm3???Abs. Becker - 0.4 k/mm3???Abs. Eo - 0.1 k/mm3???Abs. Baso - 0.0 k/mm3???Neut % - 67.3 %???Lymph % - 23.1 %???Becker % - 7.3 %???Eos % - 1.5 %???Baso % - 0.5 %???Imm Gran - 0.3 %???Abs. Imm Gran - 0.0 k/mm3 Electrolytes (04/20/2022) ???Sodium - 144 mmol/L???Potassium - 4.0 mmol/L???Chloride - 105 mmol/L???Bicarbonate Level - 30 mmol/L???Anion Gap - 9 GLUCOSE POC (04/25/2022) ???Glucose, POC - 83 mg/dL HEMOGLOBIN A1C (04/15/2022) ???Hemoglobin A1C (Monitoring) - 5.8 % HEPATIC FUNCTION PANEL (04/10/2022) ???Protein, Total - 6.0 Gm/dL???Albumin - 3.4 Gm/dL???Alkaline Phosphatase - 77 units/L???AST (SGOT)- 33 units/L? ?ALT (SGPT) - 27 units/L? ?Bilirubin, Total - 0.4 mg/dL? ?Bilirubin, Direct - <0.2 mg/dL???Bilirubin, Indirect - Direct bilirubin is less than the measureable limit. Therefore, indirect High??Sensitivity??Troponin T (04/10/2022) ???High Sensitivity Troponin (HSTnT) - 38 ng/L HOLD GEL TUBE (04/15/2022) ???Hold Gel Top - SPECIMEN DISCARDED AFTER 1 WEEK HOLD LAVENDER TUBE (04/20/2022) ???Hold Lavender Top - SPECIMEN DISCARDED AFTER 24 HOURS. Lactate Level (04/10/2022) ???Lactate - 1.4 mmol/L LIPID PANEL (04/10/2022) ???Cholesterol - 111 mg/dL???Triglycerides - 66 mg/dL???HDL Cholesterol - 51 mg/dL???LDL Cholesterol- 47 mg/dL???Non HDL Cholesterol - 60 mg/dL Magnesium Level (04/21/2022) ???Magnesium - 2.0 mg/dL Microalbumin Urine (04/10/2022) ???Malb/Creat Ratio - Unable to calculate???Urine Creat For Micro Alb - 19.7 mg/dL???Micro-Albumin -<12.0 mg/L Phosphorus Level (04/12/2022) ???Phosphorus - 3.0 mg/dL PROBNP (04/10/2022) ???Nt-Probnp - 1998 pg/mL Protein/Creatinine Ratio Urine (04/10/2022) ???Protein, Total Urine Random - 6 mg/dL???TP/Cr Ratio - 0.30???Creatinine, Urine - 19.7 mg/dL PT (INR) (04/10/2022) ???INR - 1.2???Protime (PT) - 12.0 seconds Troponin T, High Sensitivity (04/10/2022) ???High Sensitivity Troponin (HSTnT) - 35 ng/L TSH WITH REFLEX TO FT4 (04/10/2022) ???TSH - 2.16 uIU/mL Type and Screen (04/16/2022) ???Blood Type - O Positive???Antibody Screen - Negative UREA NITROGEN, URINE MG/DL (04/10/2022) ???Urea Nitrogen, Urine Random - 115.4 mg/dL Urinalysis w/hold for Urine Culture (04/10/2022) ???Appear/Color, Urine - LIGHT YELLOW???Specific [place], Urine - 1.007???pH, Urine - 6.0???Albumin,Urine - TRACE???Glucose, Urine - NEGATIVE???Ketones, Urine - NEGATIVE???Bilirubin, Urine - NEGATIVE???Hemoglobin, Urine - NEGATIVE???Nitrite, Urine - NEGATIVE???Leukocyte, Urine - NEGATIVE???Urobilinoge n - NORMAL? ?WBC's, Urine - <1 /HPF? ?RBC's, Urine - NONE SEEN? ?Bacteria - SLIGHT? ?Squamous Epith - <1 /HPF? ?Hold Urine Culture - Testing available 48 hours from time of collection. Urine Chloride (04/10/2022) ???Chloride, Urine Random - 86 mmol/L Urine Creatinine (04/10/2022) ???Creatinine, Urine Random - 19.7 mg/dL Urine Osmolality (04/10/2022) ???Osmolality, Urine Random - 231 mOsm/kg Urine Sodium (04/10/2022) ???Sodium, Urine Random - 87 mmol/L Allergies (NKA means No Known Allergies) NKA No Known Medication Allergies Problems Active Problems??(1) Severe obesity?? Education Materials Below is the list of Educational Leaflet Providered with your Discharge Instructions. Valuables and Belongings I fully understand and agree that [facility] accepts no responsibility for all my personal property including clothing, toilet articles, radios, jewelry, dentures, hearing aids, rings, money, or any other property that is in my possession or is brought to me after admission. I understand certain valuables may be placed in a hospital safe for a short period of time. I understand that the hospital is not liable for loss or damage due to accident, fire, or other natural occurrence while said property is in the safe. I accept full responsibility for any personal property that I keep with me, and will not hold the hospital responsible in case of loss or disappearance. I acknowledge that i have been encouraged to send valuables and belongings home. ?? No Valuables/Belongings: No valuables/belongings present Review of Valuable and Belonging List: With patient, With witness Date for Pt to Sign Valuables/Belongings: 04/11/22 17:46:00 ?? Other Discharge Information ?? Wound Assessment?? Wound Assessment?? Wound Location I: Scrotal Wound Type I: Unknown Etiology Wound I, Present on Admission: Yes ?? Case Management Discharge Plan?? Discharge Plan?? Discharge Agency Information?? Discharge Level of Care at Discharge: Home/Longterm/Foster Care Name of Agency #1: [facility] Discharge Transportation Arranged: [facility] [address] [facility] [phone] Agency Patient Relations Specialist #1: Phone number: ??[phone] Mode of Transportation Arranged: Chair Van Service Categories #1: Home health aide, Occupational Therapy, Physical Therapy, Retirement Discharge Arranged Transport Date/Time: 04/25/22 15:30:00 Service Comments #1: The [facility] are aware of your discharge home and will be calling you within 2 days of your discharge to set up a time for a nurse, physical therapist, occupationaltherapist and home health aide to see you at your home. Discharge VNA/Hospice/Home Care: [facility] ? Pulmonary Rehab Status?? Pulmonary Rehab Discharge Status?? Respiratory Rate: 18 br/min ? Common Emergency Awareness Tips IS IT A STROKE? Act FAST and Check for these signs: FACE Does the face look uneven? ARM Does one arm drift down? SPEECH Does their speech sound strange? TIME Call at any sign of stroke ?? Heart Attack Signs Chest discomfort: Most heart attacks involve discomfort in the center of the chest and lasts more than a few minutes, or goes away and comes back. It can feel like uncomfortable pressure, squeezing, fullness or pain. Discomfort in upper body: Symptoms can include pain or discomfort in one or both arms, back, neck, jaw or stomach. Shortness of breath: With or without discomfort. Other signs: Breaking out in a cold sweat, nausea, or lightheaded. Remember, MINUTES DO MATTER. If you experience any of these heart attack warning signs, call to get immediate medical attention! ?? Smoking can increase your chances of developing chronic health problems and can cause harmful effects to other family members in your house. If you smoke, you are strongly encouraged to quit. Please call [facility] [employer] [facility] at [phone] or 4-614-[employer] (4296) or log in to [email or web address] for referrals to smoking cessation programs. ?? The National Suicide Prevention Hotline is available 17/11 if you or someone you know needs to find areason to keep living. By calling 6-754-558-[employer] (7764) you'll be connected to a skilled, trained counselor at a crisis center in your area. INPATIENT DISCHARGE INSTRUCTIONS SIGNATURE RENU FARSHAD SARMIENTO Location:[facility] Registration Date and Time:04/11/2022 14:08 EST Primary Care Physician: Not on Staff, PCP I FARSHAD SARMIENTO, have received the above patient education materials/instructions and have verbalized understanding. If ambulance or transport services are being used I further acknowledge being given a choice of service. ?? If you need to contact me, please call me at this number: . Patient/Core Microarchitect Name: Patient/Core Microarchitect Signature: Relationship to Patient: Witness Name/Signature: Date: Event Display: Cardiac Rhythm Strips Authored Date: Event Display: Cardiac Rhythm Strips Authored Date: Event Display: Cardiac Rhythm Strips Authored Date: [employer] , CIS S: TRANSCRIBE Rohit Ge MD: VERIFY Abebe[Radiology] Kim ALVAREZ: SIGN Event Display: Result: Authored Date: US Scrotum and Contents, US Pelvic Doppler Comp Hx of Present Illness: Pt c o right testicular pain and swelling for weeks. While en route, EMS noticed garbled speech . Also c o of chronic right leg pain; Reason: Other:; Scrotal Pain; Clinical Question(s): Torsion COMPARISON: None TECHNIQUE: High-resolution sonography with grayscale, color and spectral Doppler analysis. FINDINGS: RIGHT: Right testicle size: 3.8 x 2.6 x 2.4 cm (12.6 cc). Normal right testicle size, contour and echotexture without focal lesions. Normal arterial and venous waveforms. The epididymis is unremarkable. No significant hydrocele or varicocele. LEFT: Left testicle size: 3.8 x 2.5 x 2.2 cm (11.3 cc). Normal left testicle size, contour and echotexture without focal lesions. Normal arterial and venouswaveforms. The epididymis is unremarkable. No significant hydrocele or varicocele. Other: Spermatic cords are normal. Edematous skin thickening of the scrotum measuring up to 5.5 cm on each side. IMPRESSION: 1. No evidence for testicular torsion. 2. There is marked edematous skin thickening of the scrotum measuring up to 5.5 cm on the each side.Correlate with visual inspection for cellulitis versus anasarca. I have personally reviewed the images and I agree with this report. WSN: [id number] Ordering Physician: Cady Salgado Dictated By: Abebe[Radiology] Kim ALVAREZ Dictated Date/Time: 04/10/22 7:40 am Reviewed By: Rohit Ge MD Signed By: Rohit Ge MD Signed Date/Time: 04/10/22 7:45 am Transcribed By: RADHA Transcribed Date/Time: 04/10/22 3:07 [facility] S: TRANSCRIBE Rohit Ge MD: VERIFY Abebe[Radiology] Kim ALVAREZ: SIGN Event Display: Result: Authored Date: [id number] US Scrotum and Contents, US Pelvic Doppler Comp Hx of Present Illness: Pt c o right testicular pain and swelling for weeks. While en route, EMS noticed garbled speech . Also c o of chronic right leg pain; Reason: Other:; Scrotal Pain; Clinical Question(s): Torsion COMPARISON: None TECHNIQUE: High-resolution sonography with grayscale, color and spectral Doppler analysis. FINDINGS: RIGHT: Right testicle size: 3.8 x 2.6 x 2.4 cm (12.6 cc). Normal right testicle size, contour and echotexture without focal lesions. Normal arterial and venous waveforms. The epididymis is unremarkable. No significant hydrocele or varicocele. LEFT: Left testicle size: 3.8 x 2.5 x 2.2 cm (11.3 cc). Normal left testicle size, contour and echotexture without focal lesions. Normal arterial and venouswaveforms. The epididymis is unremarkable. No significant hydrocele or varicocele. Other: Spermatic cords are normal. Edematous skin thickening of the scrotum measuring up to 5.5 cm on each side. IMPRESSION: 1. No evidence for testicular torsion. 2. There is marked edematous skin thickening of the scrotum measuring up to 5.5 cm on the each side.Correlate with visual inspection for cellulitis versus anasarca. I have personally reviewed the images and I agree with this report. WSN: [id number] Ordering Physician: Cady Salgado Dictated By: Abebe[Radiology] Kim ALVAREZ Dictated Date/Time: 04/10/22 7:40 am Reviewed By: Rohit Ge MD Signed By: Rohit Ge MD Signed Date/Time: 04/10/22 7:45 am Transcribed By: RADHA Transcribed Date/Time: 04/10/22 3:07 am Hospital Progress note Wendy Johnson L: PERFORM Event Display: Progress Note Hospital Authored Date: [id number] Patient: ??FARSHAD SARMIENTO ? Age:??57 Years?Sex:??Male?:??1965?? Subjective Cardiology follow-up for: biventricular heart failure Telemetry: SR; one episode of bradycardia to the 40s while asleep, episode of NSVT yesterday Review of Systems Difficult historian; complains of knee pain and foot pain. Denies chest pain. Has some occasional dyspnea, but he is not clear on whether this is exertional or at rest Objective Measurements?? Height: 186 cm (04/24/22) Weight: 159 kg (04/23/22) Dry Weight: 191.3 kg (04/11/22) Body Mass Index:??55.3 kg/m2??Critical (04/11/22) ? Vital Signs?? Temperature: 98.6 DegF (04/25/22 07:00:00) Temperature Route: Axillary (04/25/22 07:00:00) Pulse Rate: 72 bpm (04/25/22 08:29:00) Respiratory Rate: 20 br/min (04/25/22 07:00:00) Systolic Blood Pressure: 121 mm Hg (04/25/22 08:29:00) Systolic Blood Pressure: 121 mm Hg (04/25/22 08:29:00) Diastolic Blood Pressure:??93 mm Hg??High (04/25/22 08:29:00) Diastolic Blood Pressure:??93 mm Hg??High (04/25/22 08:29:00) Blood pressure sites: Arm, right (04/25/22 07:00:00) Pulse Pressure: 28 mm Hg (04/25/22 07:00:00) Oxygen Saturation: 100 % (04/25/22 07:00:00) Mode of Delivery (Oxygen): Room air (04/25/22 07:00:00) Early Warning Score: 0 (04/25/22 10:42:26) ? Intake/Output? 04/11 14:08 04/25 07:00 12/29 07:00 04/23 07:00 04/22 07:00 ?? 04/25 11:57 04/25 11:57 04/25 06:59 04/24 06:59 04/23 06:59 Intake ?22637.7 ?360 ? 1200 ? 2160 ? 1600 Output ?79980 ?0 ?0 ? 8325 ? 6300 Net Total ? -96718.3 ?360 ? 1200 ?-6165 ?-4700 ? Urine Count ? 50 ?0 ?3 ?5 ? 11 ? Physical Exam NEURO: AAOx3, no focal deficits, moving all extremities spontaneously HEENT: Moist mucous membranes, head atraumatic, pupils equal/round RESPIRATORY: Clear to auscultation bilaterally. No wheezes, rales, or rhonchi. CARDIOVASCULAR: RRR, S1S2, no murmurs/rubs/gallops ABDOMEN: Non-distended, +BS, soft, NTTP EXTREMITIES: Trace LE edema, dry skin SKIN: Warm, dry, well-perfused _ Home Medications No medications documented.? Inpatient Medications Medications (15) Active SCHEDULED: (7) Carvedilol 3.125 mg Tablet (Coreg 3.125 mg oral tablet) ??3.125 mg, By Mouth, 2 times a day Furosemide 40 mg Tablet (Lasix 40 mg oral tablet) ??40 mg, By Mouth, Daily Heparin 5000 units/mL Inj (1 mL) (Heparin Inj) ??5,000 units 1 mL, Subcutaneous Injection, 3 times aday Insulin Lispro 100 units/mL Inj (3mL) (Insulin LISPRO Sliding Scale) ??2-10 units, Subcutaneous Injection, 3 times a day before meals Losartan 25 mg Tablet (losartan 25 mg oral tablet) ??25 mg, By Mouth, Daily NaCl 0.9% Flush 3ml (NaCL 0.9% Flush) ??3 mL, IV Push, Every 8 hours Paliperidone 156 mg/mL Inj (Invega Sustenna 156 mg/mL intramuscular suspension, extended release) ??156 mg 1 mL, Intramuscular, Every week CONTINUOUS: (0) PRN: (8) Acetaminophen 325 mg Tablet (Acetaminophen Tablet) ??650 mg, By Mouth, Every 4 hours Dextromethorphan-Guaifenesin 20 mg-200 mg/10 mL Liqu UD (Robitussin DM Liquid) ??10 mL, By Mouth, Every 4 hours Melatonin 3 mg Tablet (Melatonin Tablet) ??3 mg, By Mouth, Daily at bedtime NaCl 0.9% Flush 3ml (NaCL 0.9% Flush) ??3 mL, IV Push, Every 8 hours Nicotine Lozenge 4mg (Nicotine Lozenge) ??4 mg, By Mouth, Every 4 hours Risperidone 1 mg Tablet (risperiDONE 1 mg oral tablet) ??1 mg, By Mouth, Every 6 hours Senna 8.6 mg / Docusate 50 mg tablet (Docusate/Senna Tablet) ??1 tablet, By Mouth, 2 times a day Simethicone 80 mg Chewable Tablet (Simethicone Tablet) ??80 mg, Chew, 3 times a day ? Results Recent Labs BLOOD COUNT & DIFF WBC 6.5 k/mm3 ()?? 04/24/2022 10:09 RBC 4.00 m/mm3 (Low)?? 04/24/2022 10:09 Hgb 11.5 Gm/dL (Low)?? 04/24/2022 10:09 Hct 36.7 % (Low)?? 04/24/2022 10:09 MCV 91.8 femtoliters ()?? 04/24/2022 10:09 MCH 28.8 pg ()?? 04/24/2022 10:09 MCHC 31.3 g/dL (Low)?? 04/24/2022 10:09 Platelet Count 283 k/mm3 ()?? 04/24/2022 10:09 RDW-SD 57.8 femtoliters (High)?? 04/24/2022 10:09 MPV 10.1 femtoliters ()?? 04/24/2022 10:09 Nucleated RBC (Automated) 0.0 #/100 WBC'S ()?? 04/24/2022 10:09 Abs. NRBC 0.0 k/mm3 ()?? 04/24/2022 10:09 Abs. Neut 5.0 k/mm3 ()?? 04/24/2022 10:09 Abs. Lymph 1.0 k/mm3 ()?? 04/24/2022 10:09 Abs. Becker 0.4 k/mm3 ()?? 04/24/2022 10:09 Abs. Eo 0.1 k/mm3 ()?? 04/24/2022 10:09 Abs. Baso 0.0 k/mm3 ()?? 04/24/2022 10:09 Neut % 76.2 % (High)?? 04/24/2022 10:09 Lymph % 15.3 % ()?? 04/24/2022 10:09 Becker % 5.8 % ()?? 04/24/2022 10:09 Eos % 1.8 % ()?? 04/24/2022 10:09 Baso % 0.6 % ()?? 04/24/2022 10:09 Imm Gran 0.3 % ()?? 04/24/2022 10:09 Abs. Imm Gran 0.0 k/mm3 ()?? 04/24/2022 10:09 ?? CHEM GENERAL Sodium 142 mmol/L ()?? 04/25/2022 09:00 Potassium 4.2 mmol/L ()?? 04/25/2022 09:00 Chloride 102 mmol/L ()?? 04/25/2022 09:00 Bicarbonate Level 34 mmol/L (High)?? 04/25/2022 09:00 Anion Gap 6 ()?? 04/25/2022 09:00 Glucose Level 142 mg/dL (High)?? 04/25/2022 09:00 Glucose, POC 111 mg/dL (High)?? 04/25/2022 07:30 BUN 17 mg/dL ()?? 04/25/2022 09:00 Creatinine-Blood 1.1 mg/dL ()?? 04/25/2022 09:00 Estimated GFR Creatinine 76 ML/MIN/1.73 M2 ()?? 04/25/2022 09:00 Calcium 9.1 mg/dL ()?? 04/25/2022 09:00 ? Blood Glucose Trend Glucose Level:??142 mg/dL??High (04/25/22 09:00:00) Glucose, POC:??111 mg/dL??High (04/25/22 07:30:00) Glucose, POC:??113 mg/dL??High (04/24/22 20:46:00) Glucose, POC: 99 mg/dL (04/24/22 16:05:00) ? LFT?? No qualifying data available. ?? Microbiology ?? Blood Culture?? Completed?? Source: Blood Body Site: ?? Collected Dt/Tm: 04/10/2022 00:50 Last Updated Dt/Tm: 04/10/2022 00:51 ?SPECIMEN DESCRIPTION : BLOOD ??NO SITESPECIAL REQUESTS : NONECULTURE : NO GROWTH 5 DAYS.REPORT STATUS : FINAL 04/15/2022 Blood Culture #2?? Completed?? Source: Blood Body Site: ?? Collected Dt/Tm: 04/10/2022 00:50 Last Updated Dt/Tm: 04/10/2022 00:51 ?SPECIMEN DESCRIPTION : BLOOD ??NO SITESPECIAL REQUESTS : NONECULTURE : NO GROWTH 5 DAYS.REPORT STATUS : FINAL 04/15/2022 COVID-19 (2019 Novel Coronavirus) PCR?? Completed?? Source: Nasal Body Site: Nose Collected Dt/Tm: 04/17/2022 05:10 Last Updated Dt/Tm: 04/17/2022 16:39 COVID-19 (2019 Novel Coronavirus) PCR?? Collected?? Source: Nasal Body Site: Nose Collected Dt/Tm: 04/24/2022 05:56 Last Updated Dt/Tm: 04/24/2022 05:00 ? Cardiology Labs Nt-Probnp:??1998 pg/mL??High (04/10/22 01:02:00) High Sensitivity Troponin (HSTnT):??35 ng/L??High (04/10/22 14:35:00) High Sensitivity Troponin (HSTnT):??38 ng/L??High (04/10/22 04:59:00) Lipids: Cholesterol: 111 mg/dL (04/10/22 01:02:00) Triglycerides: 66 mg/dL (04/10/22 01:02:00) HDL Cholesterol: 51 mg/dL (04/10/22 01:02:00) LDL Cholesterol: 47 mg/dL (04/10/22 01:02:00) Non HDL Cholesterol: 60 mg/dL (04/10/22 01:02:00) ?? Blood Gases?? No qualifying data available. ?? Assessment/Plan Patient is a 57-year-old male with past medical history of psychiatric disorder and homelessness, who presented with new onset heart failure. ?? 1. New onset biventricular heart failure EF 20-25% on echo s/p diuresis. Now on losartan, coreg, and oral furosemide. Would continue this regimen.??Unable to offer cath given??uncertainty of med compliance and??follow-up. Pt??not able to undergo stress test due to anxiety. Would recommend medical??management with asa/statin and outpt follow-up. ?? Plan discussed and pt seen/examined with Dr. Allen ?? Alejandro ALVAREZ, Mateo Hernandez: PERFORM Event Display: Progress Note Hospital Authored Date: Patient discussed and chart reviewed with FAIZAN I agree with as above. ??This patient has not shown any consistency in terms of adherence or willingness to undergo further diagnostic testing for his cardiac care I am not sure there will be anything additional that I would offer him beyond the current medical management. ??If he is willing to follow-up consistently as an outpatient then I think he couldbe considered for more advanced diagnostic testing and therapies. Porter ALVAREZ, [facility]: PERFORM Event Display: Progress Note Hospital Authored Date: Patient: ??FARSHAD SARMIENTO ? Age:??57 Years?Sex:??Male?:??1965?? Subjective No events overnight Diuresing with better??kidney function??still hypervolemic on exam Giving IV Lasix again Discussed case with cardiology??no further ischemic work-up Possible discharge tomorrow No chest pain shortness of breath Review of Systems Negative except above Objective Measurements?? Height: 186 cm (04/24/22) Weight: 159 kg (04/23/22) Dry Weight: 191.3 kg (04/11/22) Body Mass Index:??55.3 kg/m2??Critical (04/11/22) ? Vital Signs?? Temperature: 98.4 DegF (04/24/22 15:00:00) Temperature Route: Oral (04/24/22 15:00:00) Pulse Rate:??95 bpm??High (04/24/22 15:00:00) Respiratory Rate: 18 br/min (04/24/22 15:00:00) Systolic Blood Pressure: 119 mm Hg (04/24/22 15:00:00) Diastolic Blood Pressure: 83 mm Hg (04/24/22 15:00:00) Blood pressure sites: Arm, left (04/24/22 15:00:00) Mean Arterial Pressure: 88 mm Hg (04/24/22 03:07:00) Pulse Pressure: 36 mm Hg (04/24/22 15:00:00) Oxygen Saturation: 98 % (04/24/22 15:00:00) Mode of Delivery (Oxygen): Room air (04/24/22 15:00:00) Early Warning Score: 0 (04/24/22 16:07:16) ? Intake/Output? 04/11 14:08 04/24 07:00 04/23 07:00 04/22 07:00 04/21 07:00 ?? 04/24 18:33 04/24 18:33 04/24 06:59 04/23 06:59 04/22 06:59 Intake ?97486.7 ?960 ? 2160 ? 1600 ? 2280 Output ?72982 ?0 ? 8325 ? 6300 ? 1200 Net Total ? -89361.3 ?960 ?-6165 ?-4700 ? 1080 ? Urine Count ? 51 ?1 ?5 ?3 ? 12 ? Physical Exam General?NAD, AAO HEENT?PERRLA, oropharynx clear, moist mucus membranes Pulm?CTA bilaterally, no wheezes/rhonchi/rales CV?RRR, +S1/S2, no murmurs/rubs, bilateral lower limb edema GI?Soft, nontender, nondistended, no organomegaly, bowel sounds are present Neuro?Moves all extremities MS?no obvious deformity Psych?Mood appropriate to situation?? _ Inpatient Medications Medications (15) Active SCHEDULED: (7) Carvedilol 3.125 mg Tablet (Coreg 3.125 mg oral tablet) ??3.125 mg, By Mouth, 2 times a day Furosemide 40 mg Tablet (Lasix 40 mg oral tablet) ??40 mg, By Mouth, Daily Heparin 5000 units/mL Inj (1 mL) (Heparin Inj) ??5,000 units 1 mL, Subcutaneous Injection, 3 times aday Insulin Lispro 100 units/mL Inj (3mL) (Insulin LISPRO Sliding Scale) ??2-10 units, Subcutaneous Injection, 3 times a day before meals Losartan 25 mg Tablet (losartan 25 mg oral tablet) ??25 mg, By Mouth, Daily NaCl 0.9% Flush 3ml (NaCL 0.9% Flush) ??3 mL, IV Push, Every 8 hours Paliperidone 156 mg/mL Inj (Invega Sustenna 156 mg/mL intramuscular suspension, extended release) ??156 mg 1 mL, Intramuscular, Every week CONTINUOUS: (0) PRN: (8) Acetaminophen 325 mg Tablet (Acetaminophen Tablet) ??650 mg, By Mouth, Every 4 hours Dextromethorphan-Guaifenesin 20 mg-200 mg/10 mL Liqu UD (Robitussin DM Liquid) ??10 mL, By Mouth, Every 4 hours Melatonin 3 mg Tablet (Melatonin Tablet) ??3 mg, By Mouth, Daily at bedtime NaCl 0.9% Flush 3ml (NaCL 0.9% Flush) ??3 mL, IV Push, Every 8 hours Nicotine Lozenge 4mg (Nicotine Lozenge) ??4 mg, By Mouth, Every 4 hours Risperidone 1 mg Tablet (risperiDONE 1 mg oral tablet) ??1 mg, By Mouth, Every 6 hours Senna 8.6 mg / Docusate 50 mg tablet (Docusate/Senna Tablet) ??1 tablet, By Mouth, 2 times a day Simethicone 80 mg Chewable Tablet (Simethicone Tablet) ??80 mg, Chew, 3 times a day ? Results Abnormal Labs ?? BLOOD COUNT & DIFF ??Abs. Imm Gran ??0.0 k/mm3 () ??04/24/2022 10:09 ??Abs. NRBC ??0.0 k/mm3 () ??04/24/2022 10:09 ??Hct ??36.7 % (Low) ??04/24/2022 10:09 ??Hgb ??11.5 Gm/dL (Low) ??04/24/2022 10:09 ??Imm Gran ??0.3 % () ??04/24/2022 10:09 ??MCHC ??31.3 g/dL (Low) ??04/24/2022 10:09 ??Neut % ??76.2 % (High) ??04/24/2022 10:09 ??Nucleated RBC (Automated) ??0.0 #/100 WBC'S () ??04/24/2022 10:09 ??RBC ??4.00 m/mm3 (Low) ??04/24/2022 10:09 ??RDW-SD ??57.8 femtoliters (High) ??04/24/2022 10:09 ? CHEM GENERAL ??Bicarbonate Level ??32 mmol/L (High) ??04/24/2022 10:09 ??Estimated GFR Creatinine ??71 ML/MIN/1.73 M2 () ??04/24/2022 10:09 ??Glucose Level ??108 mg/dL (High) ??04/24/2022 10:09 ? Note: Critical results are displayed in red. ? Assessment/Plan 57-year-old gentleman with a past medical history of obesity and question of history of bipolar disorder as well as social history of homelessness who presented to the hospital secondary to significantlower extremity and testicular swelling and was found to have volume overload with new onset heart failure.?? Currently admitted for medication optimization and diuresis. ?? Acute on chronic??systolic biventricular??heart failure NSVT LVEF of 20-25% with severe global hypokinesia, severe elevated left atrial??and right ventricular ?? -Cardiology on board -Patient did not tolerate stress test??with anxiety -Initial plan was for left heart cath/cardiac cath??but because??of??patient lack of??capacity??and?issues with??medication compliance??plan currently is to hold off on the??cardiac cath unless absolutely necessary -Giving IV diuretics??again on 04/24 ?? Hyperglycemia - improving Lantus 65 units nightly High-dose lispro sliding scale,??Premeal lispro??4 units??3 times daily AC POCT AC/at bedtime, adjust insulin as per blood sugar ? Acute kidney injury - resolved Patient noted to have an elevated creatinine to 1.4 on presentation which is likely cardiorenal and has improved with diuresis.?? Avoid nephrotoxins, renal dose medications, daily I's and O's, daily serum creatinine monitoring Serum creatinine stable currently at 1.3 ?? Scrotal ulcer Patient with significant scrotal ulcer which is likely secondary to the??level of edema that he has.??Wound care to follow-up ?? Tobacco use: Patient reports 1 pack/day, currently declining nicotine patch Homelessness: Patient will need a social work consult for assistance with living situation Question Bipolar disorder: Restart Invega??as per??psych recs ?? Diet: Cardiac DVT prophylaxis: [facility] Code: Full ?? Disposition: Possible discharge tomorrow??to penitentiary ? Marissa Herman RN: PERFORM, MODIFY, SIGN, VERIFY Event Display: Progress Note Hospital Authored Date: Patient: FARSHAD SARMIENTO Age: 57 years Sex: Male : 1965 Associated Diagnoses: None Author: Marissa Herman RN Findings Problem Related to Alteration in Cardiac Function (new) : Alteration in Cardiac Function/new 04/24/2022 18:00 EST Alteration in Cardiac Status Related to Heart failure Goals & Outcomes, Cardiac Status Pt will understand fluid restriction for Heart Failure Cardiac Interventions Implemented Assess/monitor cardiac status, Assess/monitor neuro status, Assess/monitor respiratory status, Assess for tolerance of IV infusions; verify rate & dose, Call/Report variances in ECG to provider, Document & Monitor O2 Sats; Administer O2 as ordered, Ensure adequate caloric intake, If no bowel movement in 3 days activate bowel regime, Monitor & document daily weight, Monitor anticoagulation values, Monitor ECG w/administration of antiarrhythmics (CO 13.420), Obtain 12 Lead ECG and CXR as ordered, Prep pt for treatments & procedures, Teach/encourage deep breath & cough exercises, Teach/encourage use of incentive spirometer, Team conversation regarding appropriate level of care, Turn & reposition Q2 hours per activity restrictions, Use adjunctive therapies per Standards of Practice . Nursing Data Vital Signs : VITAL SIGNS SECTION 04/24/2022 15:00 EST Temperature 98.4 DegF Temperature Route Oral Pulse Rate 95 bpm H Respiratory Rate 18 br/min Systolic Blood Pressure 119 mm Hg Diastolic Blood Pressure 83 mm Hg Blood pressure sites Arm, left Pulse Pressure 36 mm Hg Oxygen Saturation 98 % Mode of Delivery (Oxygen) Room air 04/24/2022 7:00 EST Temperature 98.4 DegF Temperature Route Oral Pulse Rate 79 bpm Respiratory Rate 18 br/min Systolic Blood Pressure 116 mm Hg Diastolic Blood Pressure 76 mm Hg Blood pressure sites Arm, right Pulse Pressure 40 mm Hg Oxygen Saturation 98 % Mode of Delivery (Oxygen) Room air . Evaluation Pt A&Ox3, VSS, afrebile. On tele running NSR. LS clear on room air. Pt able to ambulate to bathroom with stand by assist w/ walker, mixed continence. Pt can be verbally aggressive with staff. Recieved IVP lasix this evening per orders. No c/o of pain or SOB. Pt resting in bed, call light in reach.See CIS for full assessment. . XR Chest AP [facility] , CIS S: TRANSCRIBE Abhay White DO: SIGN Mateo Alfaro MD: VERIFY Event Display: Result: Authored Date: [id number] Chest Single Frontal View , AP upright Reason: Shortness of Breath; Clinical Question(s): CHF COMPARISON: None. FINDINGS: LINES AND TUBES: None. LUNGS AND PLEURA: Clear lungs. Normal pulmonary vascularity. No pleural effusion. No pneumothorax. HEART, MEDIASTINUM AND BALDEMAR: Moderate prominence of the cardiac silhouette, unchanged. Normal mediastinal and hilar contour. BONES AND SOFT TISSUES: No acute abnormality. Mild to moderate bilateral, osteoarthritis. IMPRESSION: No CHF or other acute abnormality. Moderate cardiomegaly. I have personally reviewed the images and I agree with this report. WSN: [id number] Ordering Physician: Jett Moreno Dictated By: Abhay White DO Dictated Date/Time: 04/10/22 8:32 am Reviewed By: Mateo Alfaro MD Signed By: Mateo Alfaro MD Signed Date/Time: 04/10/22 8:37 am Transcribed By: RADHA Transcribed Date/Time: 04/10/22 8:23 am US Retroperitoneum [facility] , CIS S: TRANSCRIBE Kris Cid MD: VERIFY Event Display: Result: Authored Date: [id number] US Retroperitoneum Comp Reason: Renal Failure; Clinical Question(s): Renal Obstruction; Order Comment: COMPARISON: None. FINDINGS: Examination limited due to patient body habitus and limited mobility. Right kidney: 10.7 cm in length. No hydronephrosis. Parenchyma not well evaluated. Left kidney: 9.7 cm in length. No hydronephrosis. Parenchyma not well evaluated. Urinary bladder: Normal morphology. No stone, mass, wall thickening or debris. Liver: Partially-imaged liver is echogenic likely representing hepatic steatosis, together with lobulated contour. IMPRESSION: Limited study. No hydronephrosis. Partially-imaged hepatic steatosis with possible cirrhotic morphology. WSN: [id number] Ordering Physician: Lobito Maurer Dictated By: Krsi Cid MD Dictated Date/Time: 04/10/22 1:06 pm Reviewed By: Kris Cid MD Signed By: Kris Cid MD Signed Date/Time: 04/10/22 1:06 pm Transcribed By: CSB Transcribed Date/Time: 04/10/22 1:04 pm Patient Care team information Care Team PersonnelName: David Carreon MD Position: [facility] Renal MD Member Role: Lifetime Consulting Physician Address: Address: [address] [place] [address], [address] [place] [address] Name: Lizet Grossman RN Position: [facility] RN Member Role: Primary Care Nurse Name: Gabi Godinez Position: [facility] RN Member Role: Primary Care Nurse Name: David Rossi RN Position: [facility] RN Member Role: Primary Care Nurse Name: Not on Staff, PCP Position: [facility] Physician (General Medicine) Member Role: PCP Name: Marielena Nixon RN Position: [facility] RN Member Role: Primary Care Nurse Name: Bina Polanco RN Position: [facility] RN Member Role: Primary Care Nurse Name: Sonny ANAND Attending Position: [facility] ED Medicine MD Name: Heydi Carpenter Position: [facility] ED OA Charge Member Role: ED Associate Name: Guanakito Desir Position: [facility] ED TA [facility] Member Role: Electronic Organ Technician Name: Ozzie Iqbal RN Position: [facility] ED RN W/OE and Tasks Member Role: Patient Care Provider Care Team Related PersonsName: NO ONE, PT STATES
--- OUTSIDE RECORDS SUMMARY | 2022-07-04 20:49 | XMS_ITS | Continuity of Care Document ---
:1965 Author Organization [facility] Address [address] [place] [address]- Care Team Providers Name Role Phone Not on Staff, PCP Primary Care Physician Unavailable [facility]counter [facility] Date(s): 03/03/22 - 03/03/22 [facility] [address] [place] [address]- Discharge Disposition: A-D/C Walkout Attending Physician: Not [...] 2 Oxygen Saturation [94-100 %] 99 % 93 % (03/03/22 9:04 AM) *L* (03/03/22 4:26 AM) Pulse Rate [55-90 bpm] 88 bpm 82 bpm (03/03/22 9:04 AM) (03/03/22 4:26 AM) Blood Pressure [90-138/55-84 mm Hg] 156/71 mm Hg 148/ 102 mm Hg *H* *H* (03/03/22 9:04 AM) (03/03/22 4:26 AM) Respiratory Rate [16-30 br/min] 18 br/min (03/03/22 9:04 AM) Temperature [96.8-100.4 DegF] 98.0 DegF (03/03/22 9:04 AM) Mode of Delivery (Oxygen) Room air Room air (03/03/22 9:04 AM) (03/03/22 4:26 AM) Blood pressure sites Arm, right Arm, left (03/03/22 9:04 AM) (03/03/22 4:26 AM) Temperature Route Oral (03/03/22 9:04 AM) Social History Social History Type Response Smoking Status 10 or more cigarettes (1/2 p ack or more)/day in last 30 days entered on: 01/21/22 Sex Patient Care team information Care Team PersonnelName: Not on Staff, PCP Position: S Physician (General Medicine) Member Role: PCP Care Team Related PersonsName: NO ONE, PT STATES
--- OUTSIDE RECORDS SUMMARY | 2022-07-04 20:49 | XMS_ITS | Continuity of Care Document ---
:1965 Author Organization [facility] Address [address] [place] [address]- Care Team Providers Name Role Phone Not on Staff, PCP Primary Care Physician Unavailable [place] [facility] [place] 06[place]17/22 [facility] [address] [place] [id number]- Discharge Disposition: A-D/C Walkout Attending Physician: Not on Staff, Attending MD Admitting Physician: Not on Staff, Admitting MD Referring Physician: Not on Staff, Referring MD Allergies, Adverse Reactions, Alerts No Known Allergies Immunizations Given and Recorded Vaccine Date Status Refusal Reason influenza virus vaccine, inactivated 01/28/15 Recorded influenza virus vaccine, inactivated 05/03/13 Recorded influenza virus vaccine, inactivated 05/14/12 Recorded hepatitis B adult vaccine 04/24/14 Recorded tetanus/diphtheria/pertussis, acel(Tdap) 02/25/12 Recorde d Not Given Vaccine Date Status Refusal Reason tetanus/diphtheria/pertussis, acel(Tdap) 02/06/22 Not Giv en Patient Refuses Medications Aspirin Enteric Coated 81 mg oral delayed release tablet 1 tablet = 81 mg, By Mouth, Daily, # 30 tablet, 0 Refills, Maintenance, 04/25/22 12:49:00 EST, [facility], Partial fill upon patient request if the prescription is for a schedule II opioid drug., 186, cm, 04/24/22 3:07:00 EST, Height, 19... Start Date: 04/25/22 Stop Date: 05/25/22 Status: Orderedatorvastatin 40 mg oral tablet 1 tablet = 40 mg, By Mouth, Daily, # 30 tablet, 0 Refills, Maintenance, 06/17/22 11:45:00 EST, Tablet, [facility], Partial fill upon patient request if the prescription is for a schedule II opioid drug., 186, cm, 04/24/22 3:07:00 EST, He... Start Date: 06/17/22 Status: Orderedatorvastatin 40 mg oral tablet 1 tablet = 40 mg, By Mouth, Daily, # 30 tablet, 5 Refills, Maintenance, 04/25/22 12:50:00 EST, Tablet, [facility], Partial fill upon patient request if the prescription is for a schedule II opioid drug., 186, cm, 04/24/22 3:07:00 EST, He... Start Date: 04/25/22 Stop Date: 10/22/22 Status: OrderedCoreg 3.125 mg oral tablet 3.125 mg, 1, tablet, By Mouth, 2 times a day, # 60 tablet, Refills 0, Tot. Refills 0, Maintenance, 06/17/22 11:46:00 EST, Route to Pharmacy Electronically, [facility], Partial fill upon patient request if the prescription is for a schedu... Start Date: 06/17/22 Status: OrderedCoreg 3.125 mg oral tablet 3.125 mg, 1, tablet, By Mouth, 2 times a day, # 60 tablet, Refills 0, Tot. Refills 0, Maintenance, 04/25/22 12:48:00 EST, Route to Pharmacy Electronically, [facility], Partial fill upon patient request if the prescription is for a schedu... Start Date: 04/25/22 Status: OrderedInvega Sustenna 156 mg/mL intramuscular suspension, extended release 1 mL = 156 mg, Intramuscular, Every 28 days, # 4 mL, 0 Refills, Maintenance, 04/25/22 14:13:00 EST, Injection, [facility], Partial fill upon patient request if the prescription is for a schedule II opioid drug., 186, cm, 04/24/22 3:07:00... Start Date: 04/25/22 Stop Date: 07/24/22 Status: OrderedLasix 40 mg oral tablet 40 mg, 1, tablet, By Mouth, Daily, # 30 tablet, Refills 0, Tot. Refills 0, Maintenance, 06/17/22 11:45:00 EST, Route to Pharmacy Electronically, [facility], Partial fill upon patient request if the prescription is for a schedule II opioi... Start Date: 06/17/22 Status: OrderedLasix 40 mg oral tablet 40 mg, 1, tablet, By Mouth, Daily, # 30 tablet, Refills 0, Tot. Refills 0, Maintenance, 04/25/22 12:48:00 EST, [facility] fill upon patient request if the prescription is for a schedule II opioi... Start Date: 04/25/22 Status: Orderedlosartan 25 mg oral tablet 25 mg, 1, tablet, By Mouth, Daily, # 30 tablet, Refills 0, Tot. Refills 0, Maintenance, 06/17/22 11:46:00 EST, [facility], Partial fill upon patient request if the prescription is for a schedule II opioi... Start Date: 06/17/22 Status: Orderedlosartan 25 mg oral tablet 25 mg, 1, tablet, By Mouth, Daily, # 30 tablet, Refills 0, Tot. Refills 0, Maintenance, 04/25/22 12:48:00 EST, Route to Pharmacy Electronically, [facility], Partial fill upon patient request if the prescription is for a schedule II opioi... Start Date: 04/25/22 Status: OrderedNicotine Gum 2 mg, Chew, Every hour, PRN, Nicotine Cravings, Refills 0, Maintenance, Other, 05/23/22 7:49:00 EST,Partial fill upon patient request if the prescription is for a schedule II opioid drug. Start Date: 05/23/22 Status: OrderedRisperDAL 1 mg oral tablet 1 mg, 1, tablet, By Mouth, Every 6 hours, PRN, Refills 0, Maintenance, Agitation, 05/23/22 7:49:00 EST, Partial fill upon patient request if the prescription is for a schedule II opioid drug. Start Date: 05/23/22 Status: OrderedRisperDAL 1 mg oral tablet 1 mg, 1, tablet, By Mouth, 2 times a day, Refills 0, Maintenance, 05/23/22 7:49:00 EST, Partial fillupon patient request if the prescription is for a schedule II opioid drug. Start Date: 05/23/22 Status: OrderedrisperiDONE 1 mg oral tablet 1 mg, 1, tablet, By Mouth, 2 times a day, # 60 tablet, Refills 0, Tot. Refills 0, Maintenance, 06/17/22 11:45:00 EST, Route to Pharmacy Electronically, [facility], Partial fill upon patient request if the prescription is for a schedule I... Start Date: 06/17/22 Status: Ordered Problem List Condition Confirmation Course Effective Dates Status Health Stat us Informant Severe obesity Confirmed Active Vital Signs Most recent to oldest [Reference Range]: 1 Oxygen Saturation [94-100 %] 100 % (06/17/22 7:31 PM) Pulse Rate [55-90 bpm] 90 bpm (06/17/22 7:31 PM) Blood Pressure [90-138/55-84 mm Hg] 135/106 mm Hg (06/17/22 7:31 PM) Respiratory Rate [16-30 br/min] 18 br/min (06/17/22 7:31 PM) Temperature [96.8-100.4 DegF] 98.1 DegF (06/17/22 7:31 PM) Mode of Delivery (Oxygen) Room air (06/17/22 7:31 PM) Blood pressure sites Arm, left (06/17/22 7:31 PM) Temperature Route Oral (06/17/22 7:31 PM) Social History Social History Type Response Smoking Status 10 or more cigarettes (1/2 p ack or more)/day in last 30 days entered on: 01/21/22 Sex Patient Care team information Care Team PersonnelName: Libertad Villanueva RN Position: [facility] RN Member Role: Primary Care Nurse Name: Velma ALVAREZ, David Watson Position: [facility] Renal MD Member Role: Lifetime Consulting Physician Address: Address: [address] [place] [address], [address] [place] [address] Name: Lizet Grossman RN Position: S RN Member Role: Primary Care Nurse Name: Gabi Godinez Position: S RN Member Role: Primary Care Nurse Name: Giselle Merritt LPN Position: S RN Member Role: Primary Care Nurse Name: Julissa Paredes RN Position: S RN Member Role: Primary Care Nurse Name: David Rossi RN Position: S RN Member Role: Primary Care Nurse Name: Not on Staff, PCP Position: [facility] Physician (General Medicine) Member Role: PCP Name: Marielena Nixon RN Position: [facility] RN Member Role: Primary Care Nurse Name: Bonnie Hollingsworth RN Position: [facility] RN Member Role: Primary Care Nurse Name: Vickie Anthony RN Position: [facility] RN Member Role: Primary Care Nurse Name: Day Stafford RN Position: [facility] RN Member Role: Primary Care Nurse Name: Bina Polanco RN Position: [facility] RN Member Role: Primary Care Nurse Name: Akin Lira RN Position: [facility] RN Member Role: Primary Care Nurse Care Team Related PersonsName: NO ONE, PT STATES
--- OUTSIDE RECORDS SUMMARY | 2022-07-04 20:49 | XMS_ITS | Continuity of Care Document ---
:1965 Author Organization [facility] Address [address] [place] [address]- Care Team Providers Name Role Phone Not on Staff, PCP Primary Care Physician Unavailable [facility]counter [facility] Date[facility]s): 03/10/22 - 03/11/22 [facility] [address] [place] [address]- Encounter Diagnosis Joint pain (Final) - 03/11/22 Discharge Disposition: A-D/C Home Attending Physician: Wes Christina MD Admitting Physician: Wes Christina MD Referring Physician: Not on Staff, Referring [...] Saturation [94-100 %] 99 % 100 % (03/11/22 9:39 AM) (03/10/22 9:06 PM) Pulse Rate [55-90 bpm] 90 bpm 98 bpm (03/11/22 9:39 AM) *H* (03/10/22 9:06 PM) Blood Pressure [90-138/55-84 mm Hg] 148/90 mm Hg *H* (03/10/22 9:06 PM) Respiratory Rate [16-30 br/min] 20 br/min 16 br/mi n (03/11/22 9:39 AM) (03/10/22 9:06 PM) Temperature [96.8-100.4 DegF] 97.6 DegF 94.4 DegF (03/11/22 9:39 AM) *L* (03/10/22 9:06 PM) Mode of Delivery (Oxygen) Room air Room air (03/11/22 9:39 AM) (03/10/22 9:06 PM) Temperature Route Oral Oral (03/11/22 9:39 AM) (03/10/22 9:06 PM) Social History Social History Type Response Smoking Status 10 or more cigarettes (1/2 p ack or more)/day in last 30 days entered on: 01/21/22 Sex Patient Care team information Care Team PersonnelName: Not on Staff, PCP Position: [facility] Physician (General Medicine) Member Role: PCP Name: Wes Christina MD Position: [facility] ED Medicine MD Member Role: Admitting Physician Address: Address: [address] [place] [address] Name: Elliot Rosales Position: [facility] Associate Professional Member Role: ED Physician Traffic Superintendent Address: Address: [address] [place] [address] Name: Shaka Ricketts LPN Position: [facility] ED RN W/OE and Tasks Member Role: Patient Care Provider Care Team Related PersonsName: NO ONE, PT STATES
--- OUTSIDE RECORDS SUMMARY | 2022-07-04 20:49 | XMS_ITS | Continuity of Care Document ---
:1965 Author Organization [facility] Address [address] [place] [address]- Care Team Providers Name Role Phone Not on Staff, PCP Primary Care Physician Unavailable [facility]counter [facility] Date(s): 03/04/22 - 03/04/22 [facility] [address] [place] [address]- Discharge Disposition: A-D/C Walkout Attending Physician: Not [...] [Reference Range]: 1 Oxygen Saturation [94-100 %] 94 % (03/04/22 5:49 AM) Pulse Rate [55-90 bpm] 90 bpm (03/04/22 5:49 AM) Blood Pressure [90-138/55-84 mm Hg] 135/93 mm Hg (03/04/22 5:49 AM) Respiratory Rate [16-30 br/min] 18 br/min (03/04/22 5:49 AM) Temperature [96.8-100.4 DegF] 98.2 DegF (03/04/22 5:49 AM) Mode of Delivery (Oxygen) Room air (03/04/22 5:49 AM) Blood pressure sites Arm, right (03/04/22 5:49 AM) Temperature Route Oral (03/04/22 5:49 AM) Social History Social History Type Response Smoking Status 10 or more cigarettes (1/2 p ack or more)/day in last 30 days entered on: 01/21/22 Sex Patient Care team information Care Team PersonnelName: Not on Staff, PCP Position: S Physician (General Medicine) Member Role: PCP Care Team Related PersonsName: NO ONE, PT STATES
--- OUTSIDE RECORDS SUMMARY | 2022-07-04 20:49 | XMS_ITS | Continuity of Care Document ---
:1965 Author Organization [facility] Address [address] [place] [address]- Care Team Providers Name Role Phone Not on Staff, PCP Primary Care Physician Unavailable Encounter [facility] [place] Date(s): 06/15/22 - 06/17/22 [facility] [address] [place] [address]- Encounter Diagnosis Medication refill (Final) - 06/17/22 Discharge Disposition: A-D/C Home Attending Physician: rKis Block MD Admitting Physician: Kris Block MD Referring Physician: Not on Staff, Referring [...] tablet, 0 Refills, Maintenance, 04/25/22 12:49:00 EST, [facility], Partial fill upon patient request if the prescription is for a schedule II opioid drug., 186, cm, 04/24/22 3:07:00 EST, Height, 19... Start Date: 04/25/22 Stop Date: 05/25/22 Status: Orderedatorvastatin 40 mg oral tablet 1 tablet = 40 mg, By Mouth, Daily, # 30 tablet, 0 Refills, Maintenance, 06/17/22 11:45:00 EST, Tablet, [facility], Partial fill upon patient request if the prescription is for a schedule II opioid drug., 186, rosa, 04/24/22 3:07:00 EST, He... Start Date: 06/17/22 Status: Orderedatorvastatin 40 mg oral tablet 1 tablet = 40 mg, By Mouth, Daily, # 30 tablet, 5 Refills, Maintenance, 04/25/22 12:50:00 EST, Tablet, [facility], Partial fill upon patient request if the prescription is for a schedule II opioid drug., 186, rosa, 04/24/22 3:07:00 EST, He... Start Date: 04/25/22 Stop Date: 10/22/22 Status: OrderedCoreg 3.125 mg oral tablet 3.125 mg, Tablet, By Mouth, Once, STAT, 06/17/22 11:20:00 EST, Stop date 06/17/22 11:20:00 EST Start Date: 06/17/22 Stop Date: 06/17/22 Status: CompletedCoreg 3.125 mg oral tablet 3.125 mg, 1, tablet, By Mouth, 2 times a day, # 60 tablet, Refills 0, Tot. Refills 0, Maintenance, 06/17/22 11:46:00 EST, Route to Pharmacy Electronically, [facility], Partial fill upon patient request if the prescription is for a schedu... Start Date: 06/17/22 Status: OrderedCoreg 3.125 mg oral tablet 3.125 mg, 1, tablet, By Mouth, 2 times a day, # 60 tablet, Refills 0, Tot. Refills 0, Maintenance, 04/25/22 12:48:00 EST, Route to Pharmacy Electronically, [facility], Partial fill upon patient request if the prescription is for a schedu... Start Date: 04/25/22 Status: OrderedInvega Sustenna 156 mg/mL intramuscular suspension, extended release 1 mL = 156 mg, Intramuscular, Every 28 days, # 4 mL, 0 Refills, Maintenance, 04/25/22 14:13:00 EST, Injection, [facility], Partial fill upon patient request if the prescription is for a schedule II opioid drug., 186, rosa, 04/24/22 3:07:00... Start Date: 04/25/22 Stop Date: 07/24/22 Status: OrderedLasix 40 mg oral tablet 40 mg, 1, tablet, By Mouth, Daily, # 30 tablet, Refills 0, Tot. Refills 0, Maintenance, 06/17/22 11:45:00 EST, Route to Pharmacy Electronically, [facility], Partial fill upon patient request if the prescription is for a schedule II opioi... Start Date: 06/17/22 Status: OrderedLasix 40 mg oral tablet 40 mg, 1, tablet, By Mouth, Daily, # 30 tablet, Refills 0, Tot. Refills 0, Maintenance, 04/25/22 12:48:00 EST, Route to Pharmacy Electronically, [facility], Partial fill upon patient request if the prescription is for a schedule II opioi... Start Date: 04/25/22 Status: Orderedlosartan 25 mg oral tablet 25 mg, Tablet, By Mouth, STAT, 06/17/22 11:20:00 EST Start Date: 06/17/22 Stop Date: 06/17/22 Status: Completedlosartan 25 mg oral tablet 25 mg, 1, tablet, By Mouth, Daily, # 30 tablet, Refills 0, Tot. Refills 0, Maintenance, 06/17/22 11:46:00 EST, Route to Pharmacy Electronically, [facility], Partial fill upon patient request if the prescription is for a schedule II opioi... Start Date: 06/17/22 Status: Orderedlosartan 25 mg oral tablet 25 mg, 1, tablet, By Mouth, Daily, # 30 tablet, Refills 0, Tot. Refills 0, Maintenance, 04/25/22 12:48:00 EST, Route to Pharmacy Electronically, [facility], Partial fill upon patient request [...] 06/17/22 11:45:00 EST, Route to Pharmacy Electronically, [facility], Partial fill upon patient request if the prescription is for a schedule I... Start Date: 06/17/22 Status: Ordered Problem List Condition Confirmation Course Effective Dates Status Health Stat us Informant Severe obesity Confirmed Active Vital Signs Most recent to oldest 1 2 3 [Reference Range]: Oxygen Saturation [94-100 %] 98 % 96 % (06/17/22 12:01 PM) (06/15/22 3:49 PM) Pulse Rate [55-90 bpm] 96 bpm 96 bpm 95 bpm *H* *H* *H* (06/17/22 12:01 PM) (06/17/22 11:55 AM) (06/15/22 3 :49 PM) Blood Pressure [90-138/55-84 158/100 mm Hg 158/100 mm Hg 158 /100 mm Hg mm Hg] *H* *H* *H* (06/17/22 12:01 PM) (06/17/22 11:55 AM) (06/17/22 1 1:55 AM) Respiratory Rate [16-30 20 br/min 16 br/min br/min] (06/17/22 12:01 PM) (06/15/22 3:49 PM) Temperature [96.8-100.4 97.9 DegF DegF] (06/15/22 3:49 PM) Mode of Delivery (Oxygen) Room air Room air (06/17/22 12:01 PM) (06/15/22 3:49 PM) Blood pressure sites Arm, left Arm, left (06/17/22 12:01 PM) (06/15/22 3:49 PM) Temperature Route Oral (06/15/22 3:49 PM) Social History Social History Type Response Smoking Status 10 or more cigarettes (1/2 p ack or more)/day in last 30 days entered on: 01/21/22 Sex Patient Care team information Care Team PersonnelName: Libertad Villanueva RN Position: S RN Member Role: Primary Care Nurse Name: David Carreon MD Position: [facility] Renal MD Member Role: Lifetime Consulting Physician Address: Address: [address] [place] [address], [facility] [address] [place] [address]- Name: Lizet Grossman RN Position: S RN [...] Nurse Name: Not on Staff, PCP Position: [facility] Physician (General Medicine) Member Role: PCP Name: Marielena Nixon RN Position: [facility] RN Member Role: Primary Care Nurse Name: Bonnie Hollingsworth RN Position: S RN Member Role: Primary Care Nurse Name: Vickie Anthony RN Position: S RN Member Role: Primary Care Nurse Name: Day Stafford RN Position: [facility] RN Member Role: Primary Care Nurse Name: Bina Polanco RN Position: [facility] RN Member Role: Primary Care Nurse Name: Akin Lira RN Position: [facility] RN Member Role: Primary Care Nurse [facility] Attending Position: [facility] ED Attendings Patient Name: Kris Block MD Position: [facility] Resident Member Role: Admitting Physician Address: Address: [address] [place] [address]- Name: Mane Kay RN Position: [facility] ED RN W/OE and Tasks Member Role: Patient Care Provider Care Team Related PersonsName: NO ONE, PT STATES
--- OUTSIDE RECORDS SUMMARY | 2022-07-04 20:49 | XMS_ITS | Continuity of Care Document ---
:1965 Author Organization [facility] Address [address] [place] [address]- Care Team Providers Name Role Phone Not on Staff, PCP Primary Care Physician Unavailable [place] [facility] [place] 01/29/22 [facility] [address] [place] [address]- Encounter Diagnosis Foot pain (Final) - 01/29/22 Discharge Disposition: A-D/C Home Attending Physician: Lonny Trinidad MD Admitting Physician: Lonny Trinidad MD Referring Physician: Not on Staff, Referring MD Allergies, Adverse Reactions, Alerts No Known Medication Allergies Medications Compression Stockings See Instructions, # 2 each, Maintenance, surgical, calf length 20-30 mm Hg, 01/28/22 4:42:00 EDT, Supply, 183, cm, 01/24/22 8:02:00 EDT, Height, 166, kg, 01/24/22 8:02:00 EDT, Dry Weight Start Date: 01/28/22 Status: Orderedibuprofen 400 mg oral tablet 400 mg, 1, tablet, By Mouth, Every 8 hours, for 3 days, PRN pain, # 9 tablet, Refills 0, Tot. Refills 0, Acute 01/30/22 8:19:00 EDT, 01/27/22 8:19:00 EDT, Route to Pharmacy Electronically, [facility], Partial fill upon patient request if... Start Date: 01/27/22 Stop Date: 01/30/22 Status: OrderedInvega Hafyera Intramuscular, Once a month, 0 Refills, Maintenance, 01/23/22 0:39:00 EDT, Partial fill upon patientrequest if the prescription is for a schedule II opioid drug. Start Date: 01/23/22 Status: Ordered Problem List Condition Confirmation Course Effective Dates Status Health Stat us Informant Severe obesity Confirmed Active Vital Signs Most recent to oldest [Reference Range]: 1 Oxygen Saturation [94-100 %] 96 % (01/29/22 8:26 PM) Pulse Rate [55-90 bpm] 100 bpm *H* (01/29/22 8:26 PM) Blood Pressure [90-138/55-84 mm Hg] 135/93 mm Hg (01/29/22 8:26 PM) Respiratory Rate [16-30 br/min] 20 br/min (01/29/22 8:26 PM) Mode of Delivery (Oxygen) Room air (01/29/22 8:26 PM) Social History Social History Type Response Smoking Status 10 or more cigarettes (1/2 p ack or more)/day in last 30 days entered on: 01/21/22 Sex Patient Care team information PersonnelName: Not on Staff, PCP
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
--- OUTSIDE RECORDS SUMMARY | 2022-07-04 20:49 | XMS_ITS | Continuity of Care Document ---
:1965 Author Organization [facility] Address [address] [place] [address]- Care Team Providers Name Role Phone Not on Staff, PCP Primary Care Physician Unavailable Encounter [facility] Date(s): 04/05/22 - 04/05/22 [facility] [address] [place] [address]- Encounter Diagnosis Obesity (Final) - 04/05/22 Discharge Disposition: A-D/C Walkout Attending Physician: Not [...] 1 Oxygen Saturation [94-100 %] 100 % (04/05/22 6:07 AM) Pulse Rate [55-90 bpm] 88 bpm (04/05/22 6:07 AM) Blood Pressure [90-138/55-84 mm Hg] 145/102 mm Hg *H* (04/05/22 6:07 AM) Respiratory Rate [16-30 br/min] 16 br/min (04/05/22 6:07 AM) Temperature [96.8-100.4 DegF] 97.5 DegF (04/05/22 6:07 AM) Mode of Delivery (Oxygen) Room air (04/05/22 6:07 AM) Temperature Route Oral (04/05/22 6:07 AM) Social History Social History Type Response Smoking Status 10 or more cigarettes (1/2 p ack or more)/day in last 30 days entered on: 01/21/22 Sex Patient Care team information Care Team PersonnelName: Not on Staff, PCP Position: [facility] Physician (General Medicine) Member Role: PCP Name: *[facility], ED Attending Position: [facility] ED Attendings Patient Name: Dangelo Parekh RN Position: [facility] ED RN W/OE and Tasks Member Role: Patient Care Provider Name: Dangelo Cotto MD Position: [facility] Resident Member Role: ED Attending Physician Address: Address: [address] [place] [address] Care Team Related PersonsName: NO ONE, PT STATES
--- OUTSIDE RECORDS SUMMARY | 2022-07-04 20:49 | XMS_ITS | Continuity of Care Document ---
:1965 Author Organization [facility] Address [address] [place] [address]- Care Team Providers Name Role Phone Not on Staff, PCP Primary Care Physician Unavailable [facility]counter [facility] Date(s): 03/01/22 - 03/01/22 [facility] [address] [place] [address]- Discharge Disposition: A-D/C Walkout Attending Physician: Not [...] 1 Oxygen Saturation [94-100 %] 96 % (03/01/22 4:58 PM) Pulse Rate [55-90 bpm] 102 bpm *H* (03/01/22 4:58 PM) Blood Pressure [90-138/55-84 mm Hg] 145/100 mm Hg *H* (03/01/22 4:58 PM) Respiratory Rate [16-30 br/min] 18 br/min (03/01/22 4:58 PM) Temperature [96.8-100.4 DegF] 97.8 DegF (03/01/22 4:58 PM) Mode of Delivery (Oxygen) Room air (03/01/22 4:58 PM) Blood pressure sites Arm, left (03/01/22 4:58 PM) Temperature Route Oral (03/01/22 4:58 PM) Social History Social History Type Response Smoking Status 10 or more cigarettes (1/2 p ack or more)/day in last 30 days entered on: 01/21/22 Sex Patient Care team information PersonnelName: Not on Staff, PCP
--- OUTSIDE RECORDS SUMMARY | 2022-07-04 20:49 | XMS_ITS | Continuity of Care Document ---
:1965 Author Organization [facility] Address [address] [place] [address]- Care Team Providers Name Role Phone Not on Staff, PCP Primary Care Physician Unavailable Encounter [facility] Date(s): 03/24/22 - 03/24/22 [facility] [address] [place] [address]- Discharge Disposition: A-D/C Walkout Attending Physician: Not [...] 1 Oxygen Saturation [94-100 %] 100 % (03/24/22 9:08 AM) Pulse Rate [55-90 bpm] 87 bpm (03/24/22 9:08 AM) Blood Pressure [90-138/55-84 mm Hg] 140/85 mm Hg *H* (03/24/22 9:08 AM) Respiratory Rate [16-30 br/min] 18 br/min (03/24/22 9:08 AM) Temperature [96.8-100.4 DegF] 97.6 DegF (03/24/22 9:08 AM) Mode of Delivery (Oxygen) Room air (03/24/22 9:08 AM) Blood pressure sites Arm, left (03/24/22 9:08 AM) Temperature Route Oral (03/24/22 9:08 AM) Social History Social History Type Response Smoking Status 10 or more cigarettes (1/2 p ack or more)/day in last 30 days entered on: 01/21/22 Sex Patient Care team information Care Team PersonnelName: Not on Staff, PCP Position: S Physician (General Medicine) Member Role: PCP Care Team Related PersonsName: NO ONE, PT STATES
--- OUTSIDE RECORDS SUMMARY | 2022-07-04 20:49 | XMS_ITS | Continuity of Care Document ---
:1965 Author Organization [facility] Address [address] [place] [address]- Care Team Providers Name Role Phone Not on Staff, PCP Primary Care Physician Unavailable Encounter [facility] Date(s): 06/21/22 - 06/21/22 [facility] [address] [place] [address]- Encounter Diagnosis Foot pain (Final) - 06/21/22 Discharge Disposition: A-D/C Home Attending Physician: Rell Carmona MD Admitting Physician: Rell Carmona MD Referring Physician: Not on Staff, Referring [...] tablet, 0 Refills, Maintenance, 04/25/22 12:49:00 EST, [facility], Partial fill upon patient request if the prescription is for a schedule II opioid drug., 186, cm, 04/24/22 3:07:00 EST, Height, 19... Start Date: 04/25/22 Stop Date: 05/25/22 Status: Orderedatorvastatin 40 mg oral tablet 1 tablet = 40 mg, By Mouth, Daily, # 30 tablet, 0 Refills, Maintenance, 06/17/22 11:45:00 EST, Tablet, [facility], Partial fill upon patient request if the prescription is for a schedule II opioid drug., 186, cm, 04/24/22 3:07:00 EST, He... Start Date: 06/17/22 Status: Orderedatorvastatin 40 mg oral tablet 1 tablet = 40 mg, By Mouth, Daily, # 30 tablet, 5 Refills, Maintenance, 04/25/22 12:50:00 EST, Tablet, [facility], Partial fill upon patient request if the prescription is for a schedule II opioid drug., 186, cm, 04/24/22 3:07:00 EST, He... Start Date: 04/25/22 Stop Date: 10/22/22 Status: OrderedCoreg 3.125 mg oral tablet 3.125 mg, 1, tablet, By Mouth, 2 times a day, # 60 tablet, Refills 0, Tot. Refills 0, Maintenance, 06/17/22 11:46:00 EST, Route to Pharmacy Electronically, [facility], Partial fill upon patient request if the prescription is for a schedu... Start Date: 06/17/22 Status: OrderedCoreg 3.125 mg oral tablet 3.125 mg, 1, tablet, By Mouth, 2 times a day, # 60 tablet, Refills 0, Tot. Refills 0, Maintenance, 04/25/22 12:48:00 EST, Route to Pharmacy Electronically, [facility], Partial fill upon patient request if the prescription is for a schedu... Start Date: 04/25/22 Status: OrderedInvega Sustenna 156 mg/mL intramuscular suspension, extended release 1 mL = 156 mg, Intramuscular, Every 28 days, # 4 mL, 0 Refills, Maintenance, 04/25/22 14:13:00 EST, Injection, [facility], Partial fill upon patient request if the prescription is for a schedule II opioid drug., 186, cm, 04/24/22 3:07:00... Start Date: 04/25/22 Stop Date: 07/24/22 Status: OrderedLasix 40 mg oral tablet 40 mg, 1, tablet, By Mouth, Daily, # 30 tablet, Refills 0, Tot. Refills 0, Maintenance, 06/17/22 11:45:00 EST, Route to Pharmacy Electronically, [facility], Partial fill upon patient request if the prescription is for a schedule II opioi... Start Date: 06/17/22 Status: OrderedLasix 40 mg oral tablet 40 mg, 1, tablet, By Mouth, Daily, # 30 tablet, Refills 0, Tot. Refills 0, Maintenance, 04/25/22 12:48:00 EST, Route to Pharmacy Electronically, [facility], Partial fill upon patient request if the prescription is for a schedule II opioi... Start Date: 04/25/22 Status: Orderedlosartan 25 mg oral tablet 25 mg, 1, tablet, By Mouth, Daily, # 30 tablet, Refills 0, Tot. Refills 0, Maintenance, 06/17/22 11:46:00 EST, Route to Pharmacy Electronically, [facility], Partial fill upon patient request if the prescription is for a schedule II opioi... Start Date: 06/17/22 Status: Orderedlosartan 25 mg oral tablet 25 mg, 1, tablet, By Mouth, Daily, # 30 tablet, Refills 0, Tot. Refills 0, Maintenance, 04/25/22 12:48:00 EST, Route to Pharmacy Electronically, [facility], Partial fill upon patient request if [...] 06/17/22 11:45:00 EST, Route to Pharmacy Electronically, [facility], Partial fill upon patient request if the prescription is for a schedule I... Start Date: 06/17/22 Status: Ordered Problem List Condition Confirmation Course Effective Dates Status Health Stat us Informant Severe obesity Confirmed Active Vital Signs Most recent to oldest [Reference Range]: 1 Oxygen Saturation [94-100 %] 96 % (06/21/22 8:43 PM) Pulse Rate [55-90 bpm] 98 bpm *H* (06/21/22 8:43 PM) Blood Pressure [90-138/55-84 mm Hg] 143/110 mm Hg *H* (06/21/22 8:43 PM) Temperature [96.8-100.4 DegF] 98.4 DegF (06/21/22 8:43 PM) Mode of Delivery (Oxygen) Room air (06/21/22 8:43 PM) Blood pressure sites Arm, right (06/21/22 8:43 PM) Temperature Route Oral (06/21/22 8:43 PM) Social History Social History Type Response Smoking Status 10 or more cigarettes (1/2 p ack or more)/day in last 30 days entered on: 01/21/22 Sex Note Kristine ALVAREZ, Rell R: PERFORM Event Display: Patient Education Leaflets Authored Date: [id number] [facility] - Shelters ?? 35 [facility] Emergency Department Community Skilled Nursing Directory ?? EMERGENCY Shelters Important: Alcohol and drugs are absolutely forbidden in all shelters. ?? [facility] ([facility]) [address] [place] [address] Adult men and women only- no children 3 meals day served-health care and dental clinic Referral: Walk-ins are accepted/ phone calls are preferred ?? [facility] [address] [place], [place] [phone] Men only- Congregation based emergency [place] [facility]- reopening 06/2012 Referrals: Must line up by 3pm. brood station manager for intake. ?? Fatuma Mejia [address] [place] [address] Adult men and women 2 meals per day/health care nurse Referral: Must contact intake by phone before coming ?? [facility] [address] [place] [address] Adult men and women open Nov 1-August 25 3 meals day-must leave [place] [facility] by 7am Referral: First come, first serve line up begins at 5:30pm ?? [facility] [address] [place], [place] [phone] Adult men and women (one room for families with children) Referral: First come, first serve lineup begins at 3:30pm ?? [facility] [address] [place], [place]?? [address] Men only Referral:?? $300.00/month fee (1st??month kali period available) ?? [address]?? [address] Men only ?? [facility] [place] [address] [facility] ?? [place] [address] Women and children ?? [facility] [address] [place] [address]?? Women and children ?? [facility] (relocation and support) [place], [place] (Hotline) Emergency Abuse and Rape crises support, [place] [facility] ?? [facility] Rape/Domestic Violence Hotline Skilled Nursing referral ? [facility]) [address] [place], [place]?? [address] Lunch and Dinner provided (Mon ???Sat: Noon and 5pm; Sun: 1 and 5pm) ?? Additional Skilled Nursing Options ?? [facility] Emergency [facility]illed Nursing [address] [facility] [phone] Male + [place] [address] ? [facility] [address] [phone] Male + Female Beds [facility] [address] [address] [facility] [address] [phone] ?? [facility] [address] [address] [facility] [address] [phone] ?? [facility] [address] ?[place] [facility] [address] [facility] [phone] ?? [facility] [address] ? [facility] [address] [facility] [address] [phone] By Application Only/Must Call [facility] [address] ? [facility] [address]?? [facility] [phone] ? [facility] [address] [address] [facility] [address] [facility] [phone] ?? [facility] [address] ? [facility] Nursing [address] [facility] [phone] ?? [place] [facility] [address] ?[facility] ?? [phone] ?[facility] [place]? [place], [place]?? [phone]? Emergency short stay, women, men, families ? [place], [place]?? [phone] Families, adults, men, LGBTQ ? [facility]?[place],??[place]?[phone]?[facility] ??[place] [address]?[phone]?[facility] [place] [phone] ?[facility] [place] ??[phone] ? [address] [facility] [place] [phone] ? [facility] [place] [phone] ? [address] [facility] [place] [phone] ? [facility] [place] [phone] ?[place] [facility] ??[place] ??[phone] ? Patient Care team information Care Team PersonnelName: Libertad Villanueva RN Position: S RN Member Role: Primary Care Nurse Name: David Carreon MD Position: [facility] Member Role: Lifetime Consulting Physician Address: Address: [address] [place] [address], [address] [place] [address]- Name: Lizet Grossman RN Position: [facility] RN Member Role: Primary Care Nurse Name: Gabi Godinez Position: [facility] RN Member Role: Primary Care Nurse Name: Giselle Merritt LPN Position: [facility] RN Member Role: Primary Care Nurse Name: Julissa Paredes RN Position: [facility] RN Member Role: Primary Care Nurse Name: David Rossi RN Position: [facility] RN Member Role: Primary Care Nurse Name: Not on Staff, PCP Position: [facility] Physician (General Medicine) Member Role: PCP Name: Marielena Nixon RN Position: [facility] RN Member Role: Primary Care Nurse Name: Bonnie Hollingsworth RN Position: [facility] RN Member Role: Primary Care Nurse Name: Vickie Anthony RN Position: [facility] RN Member Role: Primary Care Nurse Name: Day Stafford RN Position: [facility] RN Member Role: Primary Care Nurse Name: Bina Polanco RN Position: [facility] RN Member Role: Primary Care Nurse Name: Akin Lira RN Position: [facility] RN Member Role: Primary Care Nurse Name: Rell Carmona MD Position: [facility] Resident Member Role: Admitting Physician Address: Address: [address] [place] [address] [place] [address]- Care Team Related PersonsName: NO ONE, PT STATES
--- OUTSIDE RECORDS SUMMARY | 2022-07-04 20:49 | XMS_ITS | Continuity of Care Document ---
:1965 Author Organization [facility] Address [address] [place] [address]- Care Team Providers Name Role Phone Not on Staff, PCP Primary Care Physician Unavailable [facility]counter [facility] Date(s): 02/05/22 - 02/06/22 [facility] [address] [place] [address]- Encounter Diagnosis Cellulitis of finger of left hand (Final) - 02/06/22 Discharge Disposition: A-D/C Home Attending Physician: Petra Sims DO Admitting Physician: Petra Sims DO Referring Physician: Not on Staff, Referring MD Allergies, Adverse Reactions, Alerts No Known Medication Allergies Immunizations Not Given Vaccine Date Status Refusal Reason tetanus/diphtheria/pertussis, acel(Tdap) 02/06/22 Not Giv en Patient Refuses Medications Acetaminophen Tablet 975 mg, Tablet, By Mouth, Once, STAT, 02/06/22 9:52:00 EDT, Stop date 02/06/22 9:52:00 EDT Start Date: 02/06/22 Stop Date: 02/06/22 Status: Completed Problem List Condition Confirmation Course Effective Dates Status Health Stat us Informant Severe obesity Confirmed Active Vital Signs Most recent to oldest 1 2 3 [Reference Range]: Height 196 cm 196 cm 196 cm (02/06/22 11:57 AM) (02/06/22 5:05 AM) (02/05/22 7:40 PM) Weight 166 kg 166 kg 166 kg (02/06/22 11:57 AM) (02/06/22 5:05 AM) (02/05/22 7:40 PM) Oxygen Saturation [94-100 96 % 100 % %] (02/06/22 12:55 AM) (02/05/22 7:40 PM) Pulse Rate [55-90 bpm] 88 bpm 89 bpm (02/06/22 12:55 AM) (02/05/22 7:40 PM) Blood Pressure 112/45 mm Hg 124/97 mm Hg [90-138/55-84 mm Hg] (02/06/22 12:55 AM) (02/05/22 7:40 PM) Respiratory Rate [16-30 20 br/min 16 br/min br/min] (02/06/22 10:57 AM) (02/05/22 7:40 PM) Temperature [96.8-100.4 98.2 DegF 98 DegF DegF] (02/06/22 12:55 AM) (02/05/22 7:40 PM) Mode of Delivery (Oxygen) Room air (02/05/22 7:40 PM) Blood pressure sites Arm, left (02/05/22 7:40 PM) Temperature Route Oral Oral (02/06/22 12:55 AM) (02/05/22 7:40 PM) Dry Weight 166 kg 166 kg 166 kg (02/06/22 11:57 AM) (02/06/22 5:05 AM) (02/05/22 7:40 PM) Social History Social History Type Response Smoking Status 10 or more cigarettes (1/2 p ack or more)/day in last 30 days entered on: 01/21/22 Sex Patient Care team information PersonnelName: Not on Staff, PCP
--- OUTSIDE RECORDS SUMMARY | 2022-07-04 20:49 | XMS_ITS | Continuity of Care Document ---
:1965 Author Organization [facility] Address [address] [place] [address]- Care Team Providers Name Role Phone Not on Staff, PCP Primary Care Physician Unavailable Encounter [facility] Date(s): 03/25/22 - 03/26/22 [facility] [address] [place] [address]- Discharge Disposition: A-D/C Walkout Attending Physician: Not [...] Range]: Oxygen Saturation [94-100 %] 98 % 98 % 100 % (03/26/22 6:45 AM) (03/26/22 1:40 AM) (03/25/22 8:39 PM) Pulse Rate [55-90 bpm] 74 bpm 89 bpm 92 bpm (03/26/22 6:45 AM) (03/26/22 1:40 AM) *H* (03/25/22 8:39 P M) Blood Pressure [90-138/55-84 138/82 mm Hg 144/88 mm Hg 126 /107 mm Hg mm Hg] (03/26/22 6:45 AM) *H* (03/25/22 8:3 9 PM) (03/26/22 1:40 AM) Respiratory Rate [16-30 16 br/min br/min] (03/25/22 8:39 PM) Temperature [96.8-100.4 98 DegF 98.8 DegF 98.1 Deg F DegF] (03/26/22 6:45 AM) (03/26/22 1:40 AM) (03/25/22 8:39 PM) Mode of Delivery (Oxygen) Room air Room air Room a ir (03/26/22 6:45 AM) (03/26/22 1:40 AM) (03/25/22 8:39 PM) Blood pressure sites Arm, right Arm, right (03/26/22 6:45 AM) (03/25/22 8:39 PM) Temperature Route Oral Oral Oral (03/26/22 6:45 AM) (03/26/22 1:40 AM) (03/25/22 8:39 PM) Social History Social History Type Response Smoking Status 10 or more cigarettes (1/2 p ack or more)/day in last 30 days entered on: 01/21/22 Sex Patient Care team information Care Team PersonnelName: Not on Staff, PCP Position: S Physician (General Medicine) Member Role: PCP Care Team Related PersonsName: NO ONE, PT STATES
--- OUTSIDE RECORDS SUMMARY | 2022-07-04 20:49 | XMS_ITS | Continuity of Care Document ---
:1965 Author Organization [facility] Address [address] [place] [address]- Care Team Providers Name Role Phone Not on Staff, PCP Primary Care Physician Unavailable [facility]counter [facility] Date(s): 03/01/22 - 03/01/22 [facility] [address] [place] [address]- Discharge Disposition: A-D/C Walkout Attending Physician: Not [...] 1 Oxygen Saturation [94-100 %] 100 % (03/01/22 12:45 AM) Pulse Rate [55-90 bpm] 102 bpm *H* (03/01/22 12:45 AM) Blood Pressure [90-138/55-84 mm Hg] 151/98 mm Hg *H* (03/01/22 12:45 AM) Respiratory Rate [16-30 br/min] 16 br/min (03/01/22 12:45 AM) Temperature [96.8-100.4 DegF] 97.7 DegF (03/01/22 12:45 AM) Mode of Delivery (Oxygen) Room air (03/01/22 12:45 AM) Blood pressure sites Arm, right (03/01/22 12:45 AM) Temperature Route Oral (03/01/22 12:45 AM) Social History Social History Type Response Smoking Status 10 or more cigarettes (1/2 p ack or more)/day in last 30 days entered on: 01/21/22 Sex Patient Care team information PersonnelName: Not on Staff, PCP
--- OUTSIDE RECORDS SUMMARY | 2022-07-04 20:49 | XMS_ITS | Continuity of Care Document ---
:1965 Author Organization [facility] Address [address] [place] [address]- Care Team Providers Name Role Phone Not on Staff, PCP Primary Care Physician Unavailable Encounter [facility] Date(s): 01/31/22 - 01/31/22 [facility] [address] [place] [address]- Encounter Diagnosis Right ankle pain (Final) - 01/31/22 Housing problems (Final) - 01/31/22 Discharge Disposition: A-D/C Home Attending Physician: Jayda Connors MD Admitting Physician: Jayda Connors MD Referring Physician: Not on Staff, Referring MD Allergies, Adverse Reactions, Alerts No Known Medication Allergies Medications Compression Stockings See Instructions, # 2 each, Maintenance, surgical, calf length 20-30 mm Hg, 01/28/22 4:42:00 EDT, Supply, 183, cm, 01/24/22 8:02:00 EDT, Height, 166, kg, 01/24/22 8:02:00 EDT, Dry Weight Start Date: 01/28/22 Status: OrderedInvega Hafyera Intramuscular, Once a month, 0 Refills, Maintenance, 01/23/22 0:39:00 EDT, Partial fill upon patientrequest if the prescription is for a schedule II opioid drug. Start Date: 01/23/22 Status: Ordered Problem List Condition Confirmation Course Effective Dates Status Health Stat us Informant Severe obesity Confirmed Active Vital Signs Most recent to oldest [Reference Range]: 1 Oxygen Saturation [94-100 %] 94 % (01/31/22 11:40 AM) Pulse Rate [55-90 bpm] 91 bpm *H* (01/31/22 11:40 AM) Blood Pressure [90-138/55-84 mm Hg] 124/75 mm Hg (01/31/22 11:40 AM) Respiratory Rate [16-30 br/min] 20 br/min (01/31/22 11:40 AM) Temperature [96.8-100.4 DegF] 97.8 DegF (01/31/22 11:40 AM) Mode of Delivery (Oxygen) Room air (01/31/22 11:40 AM) Blood pressure sites Arm, left (01/31/22 11:40 AM) Temperature Route Oral (01/31/22 11:40 AM) Social History Social History Type Response Smoking Status 10 or more cigarettes (1/2 p ack or more)/day in last 30 days entered on: 01/21/22 Sex Patient Care team information PersonnelName: Not on Staff, PCP
--- OUTSIDE RECORDS SUMMARY | 2022-07-04 20:49 | XMS_ITS | Continuity of Care Document ---
:1965 Author Organization [facility] Address [address] [place] [address]- Care Team Providers Name Role Phone Not on Staff, PCP Primary Care Physician Unavailable Encounter [facility] Date(s): 02/13/22 - 02/14/[address] [address]- Discharge Disposition: A-D/C Home Attending Physician: Yaya Ignacio MD Admitting Physician: Yaya Ignacio MD Referring Physician: Not on Staff, Referring [...] 1 2 Height 183 cm 183 cm (02/13/22 7:22 PM) (02/13/22 6:52 PM) Weight 166 kg 166 kg (02/13/22 7:22 PM) (02/13/22 6:52 PM) Oxygen Saturation [94-100 %] 97 % (02/13/22 6:52 PM) Pulse Rate [55-90 bpm] 102 bpm *H* (02/13/22 6:52 PM) Body Mass Index [18.5-24.99 kg/m2] 49.57 kg/m2 *>HHI* (02/13/22 6:52 PM) Blood Pressure [90-138/55-84 mm Hg] 133/115 mm Hg (02/13/22 6:52 PM) Respiratory Rate [16-30 br/min] 18 br/min (02/13/22 6:52 PM) Temperature [96.8-100.4 DegF] 98.2 DegF (02/13/22 6:52 PM) Mode of Delivery (Oxygen) Room air (02/13/22 6:52 PM) Blood pressure sites Arm, right (02/13/22 6:52 PM) Temperature Route Oral (02/13/22 6:52 PM) Dry Weight 166 kg 166 kg (02/13/22 7:22 PM) (02/13/22 6:52 PM) Weight Obtained Via Patient/family stated (02/13/22 6:52 PM) Dry Weight Obtained Via Patient/family stated (02/13/22 6:52 PM) Social History Social History Type Response Smoking Status 10 or more cigarettes (1/2 p ack or more)/day in last 30 days entered on: 01/21/22 Sex Patient Care team information PersonnelName: Not on Staff, PCP
--- OUTSIDE RECORDS SUMMARY | 2022-07-04 20:49 | XMS_ITS | Continuity of Care Document ---
:1965 Author Organization [facility] Address [address] [place] [address]- Care Team Providers Name Role Phone Not on Staff, PCP Primary Care Physician Unavailable [place] [facility] Date(s): 04/07/22 - 04/08/22 [facility] [address] [place] [address]- Discharge Disposition: A-D/C Home Attending Physician: Matt Elizabeth MD Admitting Physician: Matt Elizabeth MD Referring Physician: Not on Staff, Referring [...] us Informant Severe obesity Confirmed Active Results Radiology Reports Exam Date Time Procedure Performing Provider Status 04/08/22 8:03 PM Tibia/Fibula 2 Views Right Malvin Feliz [facility] (Verified) Notes:(Tibia/Fibula 2 Views Right) Reason For Exam: PainRESULT: Tibia/Fibula 2 Views Right Tibia/Fibula 2 Views Right Hx of Present Illness: leg pain, unable to ambulate, just discharged; Reason: Pain; Clinical Question(s): Fracture COMPARISON: 03/10/2022. FINDINGS: No fractures or bone lesions. Moderately severe degenerative changes of the visualized right knee joint. No significant arthritic changes of the ankle joint. Plantar calcaneal spur. Diffuse soft tissue swelling of the lower leg. Severe soft tissue swelling of the visualized dorsal foot. IMPRESSION: Diffuse soft tissue swelling, greatest over the dorsal foot. No acute fracture or dislocation. WSN: [id number] Ordering Physician: Haley Pathak Dictated By: Flip Lowe MD Dictated Date/Time: 04/08/22 8:19 pm Reviewed By: Flip Lowe MD Signed By: Flip Lowe MD Signed Date/Time: 04/08/22 8:19 pm Transcribed By: RADHA Transcribed Date/Time: 04/08/22 8:17 pm Vital Signs Most recent to oldest 1 2 3 [Reference Range]: Oxygen Saturation [94-100 97 % 97 % 95 % %] (04/08/22 5:30 PM) (04/08/22 4:39 PM) (04/08/22 12:51 AM) Pulse Rate [55-90 bpm] 86 bpm 88 bpm 91 bpm (04/08/22 5:30 PM) (04/08/22 4:39 PM) *H* (04/08/22 12:51 AM) Blood Pressure 122/84 mm Hg 146/89 mm Hg 143/85 mm Hg [90-138/55-84 mm Hg] (04/08/22 4:39 PM) *H* *H* (04/08/22 12:51 AM) (04/07/22 4: 30 PM) Respiratory Rate [16-30 27 br/min 23 br/min 19 br/mi n br/min] (04/08/22 5:30 PM) (04/08/22 4:39 PM) (04/07/22 4:30 PM) Temperature [96.8-100.4 97.6 DegF 97.2 DegF DegF] (04/08/22 12:51 AM) (04/07/22 4:30 PM) Mode of Delivery (Oxygen) Room air Room air (04/08/22 5:30 PM) (04/08/22 4:39 PM) Blood pressure sites Arm, left Arm, left Leg, left (04/08/22 5:30 PM) (04/08/22 4:39 PM) (04/08/22 12:51 AM) Temperature Route Axillary Oral (04/08/22 12:51 AM) (04/07/22 4:30 PM) Social History Social History Type Response Smoking Status 10 or more cigarettes (1/2 p ack or more)/day in last 30 days entered on: 01/21/22 Sex XR Tibia and Fibula - right 2 Views [facility] , CIS S: TRANSCRIBE Flip Lowe MD: VERIFY Event Display: Result: Authored Date: [id number] Tibia/Fibula 2 Views Right Hx of Present Illness: leg pain, unable to ambulate, just discharged; Reason: Pain; Clinical Question(s): Fracture COMPARISON: 03/10/2022. FINDINGS: No fractures or bone lesions. Moderately severe degenerative changes of the visualized right knee joint. No significant arthritic changes of the ankle joint. Plantar calcaneal spur. Diffuse soft tissue swelling of the lower leg. Severe soft tissue swelling of the visualized dorsal foot. IMPRESSION: Diffuse soft tissue swelling, greatest over the dorsal foot. No acute fracture or dislocation. WSN: [id number] Ordering Physician: Haley Pathak Dictated By: Flip Lowe MD Dictated Date/Time: 04/08/22 8:19 pm Reviewed By: Flip Lowe MD Signed By: Flip Lowe MD Signed Date/Time: 04/08/22 8:19 pm Transcribed By: RADHA Transcribed Date/Time: 04/08/22 8:17 pm Patient Care team information Care Team PersonnelName: Not on Staff, PCP Position: [facility] Physician (General Medicine) Member Role: PCP Name: Matt Elizabeth MD Position: [facility] ED Medicine MD Member Role: Admitting Physician Address: Address: [address] [place] [address] Name: Stefanie Barreto Position: [facility] ED TA [facility] Member Role: Patient Care Provider Name: Haley Flowers Position: [facility] Associate Professional Member Role: ED Physician Crown Pouncer Address: Address: [address] [place] [address] Name: Chacorta Green RN Position: [facility] ED RN W/OE and Tasks Member Role: Patient Care Provider Care Team Related PersonsName: NO ONE, PT STATES
--- OUTSIDE RECORDS SUMMARY | 2022-07-04 20:49 | XMS_ITS | Continuity of Care Document ---
:1965 Author Organization [facility] Address [address] [place] [address]- Care Team Providers Name Role Phone Not on Staff, PCP Primary Care Physician Unavailable Encounter [facility] Date(s): 03/05/22 - 03/06/22 [facility] [address] [place] [address]- Encounter Diagnosis Homelessness (Final) - 03/05/22 Discharge Disposition: A-D/C Home Attending Physician: Dangelo Cotto MD Admitting Physician: Dangelo Cotto MD Referring Physician: Not on Staff, Referring MD Allergies, Adverse Reactions, Alerts No Known Allergies Immunizations Not Given Vaccine Date Status Refusal Reason tetanus/diphtheria/pertussis, acel(Tdap) 02/06/22 Not Giv en Patient Refuses Medications Acetaminophen Tablet 650 mg, Tablet, By Mouth, Once, STAT, 03/05/22 17:57:00 EST, Stop date 03/05/22 17:57:00 EST Start Date: 03/05/22 Stop Date: 03/05/22 Status: CompletedWalker See Instructions, # 1 each, Maintenance, dispense one rolling walker, 02/09/22 10:10:00 EDT, Supply Start Date: 02/09/22 Status: Ordered Problem List Condition Confirmation Course Effective Dates Status Health Stat us Informant Severe obesity Confirmed Active Vital Signs Most recent to oldest [Reference Range]: 1 2 Oxygen Saturation [94-100 %] 98 % (03/06/22 12:03 AM) Pulse Rate [55-90 bpm] 96 bpm *H* (03/06/22 12:03 AM) Blood Pressure [90-138/55-84 mm Hg] 113/68 mm Hg (03/06/22 12:03 AM) Respiratory Rate [16-30 br/min] 22 br/min 18 br/mi n (03/06/22 12:03 AM) (03/05/22 7:08 PM) Mode of Delivery (Oxygen) Room air (03/06/22 12:03 AM) Blood pressure sites Arm, right (03/06/22 12:03 AM) Social History Social History Type Response Smoking Status 10 or more cigarettes (1/2 p ack or more)/day in last 30 days entered on: 01/21/22 Sex Patient Care team information Care Team PersonnelName: Not on Staff, PCP Position: [facility] Physician (General Medicine) Member Role: PCP Name: *[facility], ED Attending Position: [facility] ED Attendings Patient Name: Ivonne RNShelby Position: [facility] ED RN W/OE and Tasks Member Role: Patient Care Provider Name: Mariela Steward Position: [facility] ED [facility] Member Role: Patient Care Provider Name: Dangelo Cotto MD Position: [facility] Resident Member Role: ED Attending Physician Address: Address: [address] [place] [address] Care Team Related PersonsName: NO ONE, PT STATES
--- OUTSIDE RECORDS SUMMARY | 2022-07-04 20:49 | XMS_ITS | Continuity of Care Document ---
:1965 Author Organization [facility] Address [address] [place] [address]- Care Team Providers Name Role Phone Not on Staff, PCP Primary Care Physician Unavailable [facility]counter [facility] Date(s): 02/23/22 - 02/24/22 [facility] [address] [place] [address]- Encounter Diagnosis Homeless (Final) - 02/23/22 Discharge Disposition: A-D/C Home Attending Physician: Mk ALVAREZ, Ifeanyi Self Admitting Physician: Ifeanyi Terrazas MD Referring Physician: Not on Staff, Referring MD Allergies, Adverse Reactions, Alerts No Known Allergies Immunizations Not Given Vaccine Date Status Refusal Reason tetanus/diphtheria/pertussis, acel(Tdap) 02/06/22 Not Giv en Patient Refuses Medications Acetaminophen Tablet 975 mg, Tablet, By Mouth, Once, STAT, 02/23/22 9:30:00 EDT, Stop date 02/23/22 9:30:00 EDT Start Date: 02/23/22 Stop Date: 02/23/22 Status: CompletedWalker See Instructions, # 1 each, Maintenance, dispense one rolling walker, 02/09/22 10:10:00 EDT, Supply Start Date: 02/09/22 Status: Ordered Problem List Condition Confirmation Course Effective Dates Status Health Stat us Informant Severe obesity Confirmed Active Vital Signs Most recent to oldest 1 2 3 [Reference Range]: Oxygen Saturation [94-100 95 % 97 % %] (02/23/22 11:40 PM) (02/23/22 12:56 AM) Pulse Rate [55-90 bpm] 90 bpm 92 bpm (02/23/22 11:40 PM) *H* (02/23/22 12:56 AM) Blood Pressure 152/101 mm Hg [90-138/55-84 mm Hg] *H* (02/23/22 12:56 AM) Respiratory Rate [16-30 18 br/min 15 br/min 18 br/mi n br/min] (02/23/22 11:40 PM) *L* (02/23/22 12 :56 AM) (02/23/22 10:36 AM) Temperature [96.8-100.4 98.2 DegF DegF] (02/23/22 12:56 AM) Mode of Delivery (Oxygen) Room air Room air (02/23/22 11:40 PM) (02/23/22 12:56 AM) Blood pressure sites Arm, left (02/23/22 12:56 AM) Temperature Route Oral (02/23/22 12:56 AM) Social History Social History Type Response Smoking Status 10 or more cigarettes (1/2 p ack or more)/day in last 30 days entered on: 01/21/22 Sex Patient Care team information PersonnelName: Not on Staff, PCP
--- OUTSIDE RECORDS SUMMARY | 2022-07-04 20:49 | XMS_ITS | Continuity of Care Document ---
:1965 Author Organization [facility] Address [address] [place] [address]- Care Team Providers Name Role Phone Not on Staff, PCP Primary Care Physician Unavailable Encounter [facility] Date(s): 06/29/22 - 06/29/[address] [address]- Encounter Diagnosis Leg pain (Final) - 06/29/22 Scrotum pain (Final) - 06/29/22 Discharge Disposition: A-D/C Home Attending Physician: Rell [...] tablet, 0 Refills, Maintenance, 04/25/22 12:49:00 EST, [facility], Partial fill upon patient request if the prescription is for a schedule II opioid drug., 186, cm, 04/24/22 3:07:00 EST, Height, 19... Start Date: 04/25/22 Stop Date: 05/25/22 Status: Orderedatorvastatin 40 mg oral tablet 1 tablet = 40 mg, By Mouth, Daily, # 30 tablet, 0 Refills, Maintenance, 06/17/22 11:45:00 EST, Tablet, [facility], Partial fill upon patient request if the prescription is for a schedule II opioid drug., 186, cm, 04/24/22 3:07:00 EST, He... Start Date: 06/17/22 Status: Orderedatorvastatin 40 mg oral tablet 1 tablet = 40 mg, By Mouth, Daily, # 30 tablet, 5 Refills, Maintenance, 04/25/22 12:50:00 EST, Tablet, [facility], Partial fill upon patient request if the prescription is for a schedule II opioid drug., 186, cm, 04/24/22 3:07:00 EST, He... Start Date: 04/25/22 Stop Date: 10/22/22 Status: OrderedCoreg 3.125 mg oral tablet 3.125 mg, 1, tablet, By Mouth, 2 times a day, # 60 tablet, Refills 0, Tot. Refills 0, Maintenance, 06/17/22 11:46:00 EST, Route to Pharmacy Electronically, [facility], Partial fill upon patient request if the prescription is for a schedu... Start Date: 06/17/22 Status: OrderedCoreg 3.125 mg oral tablet 3.125 mg, 1, tablet, By Mouth, 2 times a day, # 60 tablet, Refills 0, Tot. Refills 0, Maintenance, 04/25/22 12:48:00 EST, Route to Pharmacy Electronically, [facility], Partial fill upon patient request if the prescription is for a schedu... Start Date: 04/25/22 Status: OrderedInvega Sustenna 156 mg/mL intramuscular suspension, extended release 1 mL = 156 mg, Intramuscular, Every 28 days, # 4 mL, 0 Refills, Maintenance, 04/25/22 14:13:00 EST, Injection, [facility], Partial fill upon patient request if the prescription is for a schedule II opioid drug., 186, cm, 04/24/22 3:07:00... Start Date: 04/25/22 Stop Date: 07/24/22 Status: OrderedLasix 40 mg oral tablet 40 mg, 1, tablet, By Mouth, Daily, # 30 tablet, Refills 0, Tot. Refills 0, Maintenance, 06/17/22 11:45:00 EST, Route to Pharmacy Electronically, [facility], Partial fill upon patient request if the prescription is for a schedule II opioi... Start Date: 06/17/22 Status: OrderedLasix 40 mg oral tablet 40 mg, 1, tablet, By Mouth, Daily, # 30 tablet, Refills 0, Tot. Refills 0, Maintenance, 04/25/22 12:48:00 EST, Route to Pharmacy Electronically, [facility], Partial fill upon patient request if the prescription is for a schedule II opioi... Start Date: 04/25/22 Status: Orderedlosartan 25 mg oral tablet 25 mg, 1, tablet, By Mouth, Daily, # 30 tablet, Refills 0, Tot. Refills 0, Maintenance, 06/17/22 11:46:00 EST, Route to Pharmacy Electronically, [facility], Partial fill upon patient request if the prescription is for a schedule II opioi... Start Date: 06/17/22 Status: Orderedlosartan 25 mg oral tablet 25 mg, 1, tablet, By Mouth, Daily, # 30 tablet, Refills 0, Tot. Refills 0, Maintenance, 04/25/22 12:48:00 EST, Route to Pharmacy Electronically, [facility], Partial fill upon patient request [...] 06/17/22 11:45:00 EST, Route to Pharmacy Electronically, [facility], Partial fill upon patient request if the prescription is for a schedule I... Start Date: 06/17/22 Status: Ordered Problem List Condition Confirmation Course Effective Dates Status Health Stat us Informant Severe obesity Confirmed Active Vital Signs Most recent to oldest [Reference Range]: 1 2 Oxygen Saturation [94-100 %] 98 % (06/29/22 1:34 PM) Pulse Rate [55-90 bpm] 96 bpm *H* (06/29/22 1:34 PM) Blood Pressure [90-138/55-84 mm Hg] 147/118 mm Hg *H* (06/29/22 1:34 PM) Respiratory Rate [16-30 br/min] 23 br/min (06/29/22 1:34 PM) Temperature [96.8-100.4 DegF] 99.3 DegF 99.3 DegF (06/29/22 1:34 PM) (06/29/22 1:14 PM) Mode of Delivery (Oxygen) Room air (06/29/22 1:34 PM) Blood pressure sites Arm, right (06/29/22 1:34 PM) Temperature Route Rectal Rectal (06/29/22 1:34 PM) (06/29/22 1:14 PM) Social History Social History Type Response Smoking Status 10 or more cigarettes (1/2 p ack or more)/day in last 30 days entered on: 01/21/22 Sex Note Kristine ALVAREZ, Rell Hernandez: PERFORM Event Display: Patient Education Leaflets Authored Date: [id number] [facility] - Shelters ?? 35 [facility] Emergency Department Community Custodial Directory ?? EMERGENCY Shelters Important: Alcohol and drugs are absolutely forbidden in all shelters. ?? [facility] Custodial ([facility]) [address] [place], [place] [id number] Adult men and women only- no children 3 meals day served-health care and dental clinic Referral: Walk-ins are accepted/ phone calls are preferred ?? [facility] Emergency Custodial [address] [place], [place] [phone] Men only- [facility] based emergency usp- reopening 06/2012 Referrals: Must line up by 3pm. booking manager for intake. ?? Fatuma Mejia [address] [place] [address] Adult men and women 2 meals per day/health care nurse Referral: Must contact intake by phone before coming ?? [facility] [address] [place] [address] Adult men and women open Feb 25-August 25 3 meals day-must leave usp by 7am Referral: First come, first serve line up begins at 5:30pm ?? [facility] Emergency Custodial [address] [place], [place] [phone] Adult men and women (one room for families with children) Referral: First come, first serve lineup begins at 3:30pm ?? [address]?? [address] Men only Referral:?? $300.00/month fee (1st??month kali period available) ?? [facility] [address] [place], [place]?? [address] Men only ?? Kel[place] [address] [facility] ?? [place] [address] Women and children ?? [facility] [address] [place] [address]?? Women and children ?? [facility] (relocation and support) [place], [place] (Hotline) Emergency Abuse and Rape crises support, usp ?? [facility] Rape/Domestic Violence Hotline Custodial referral ? [facility]) [address] [place], [place]?? [address] Lunch and Dinner provided (Mon ???Sat: Noon and 5pm; Sun: 1 and 5pm) ?? Additional Custodial Options ?? [facility] Emergency Custodial [address] [facility] [phone] Male + [place] [address] ? [facility] [address] [phone] Male + Female Beds [place] [address] [address] [facility] [address] [phone] ?? [place] [address] [address] [facility] [address] [phone] ?? [facility] [address] ?[place] [facility] [address] [facility] [phone] ?? [place] [address] ? [facility] [address] [facility] [address] [phone] By Application Only/Must Call [facility] [address] ? [facility] 143?? [facility] [phone] ? [facility] [address] [address] [facility] [address] [facility] [phone] ?? [facility] [address] ? [facility] [address] [facility] [phone] ?? [facility] [address] ?[facility] ?? [phone] ?[facility]? [place], [place]?? [phone]? Emergency short stay, women, men, families ? [place], [place]?? [phone] Families, adults, men, LGBTQ ? [facility] Custodial?[place]?[phone]?[facility] ??[place] [address]?[phone]?[facility] [place] [phone] ?[facility] [place] ??[phone] ? [address] Custodial [place] [phone] ? [facility] [place] [phone] ? [address] Custodial [place] [phone] ? [facility] [place] [phone] ?[facility] ??[place] ??[phone] ? Patient Care team information Care Team PersonnelName: Libertad Villanueva RN Position: [facility] RN Member Role: Primary Care Nurse Name: Velma ALVAREZ, David Watson Position: [facility] Renal MD Member Role: Lifetime Consulting Physician Address: Address: [address] [place] [address], [address] [place] [address]- Name: Lizet Grossman RN Position: [facility] RN Member Role: Primary Care Nurse Name: Gabi Godinez Position: [facility] RN Member Role: Primary Care Nurse Name: Giselle Merritt LPN Position: [facility] RN Member Role: Primary Care Nurse Name: Julissa Paredes RN Position: [facility] RN Member Role: Primary Care Nurse Name: David Rossi RN Position: [facility] RN Member Role: Primary Care Nurse Name: Not on Staff, PCP Position: [facility] Physician (General Medicine) Member Role: PCP Name: Marielena Nixon RN Position: [facility] RN Member Role: Primary Care Nurse Name: Bonnie Hollingsworth RN Position: [facility] RN Member Role: Primary Care Nurse Name: Vickie Anthony RN Position: [facility] RN Member Role: Primary Care Nurse Name: Day Stafford RN Position: [facility] RN Member Role: Primary Care Nurse Name: Bina Polanco RN Position: [facility] RN Member Role: Primary Care Nurse Name: Akin Lira RN Position: [facility] RN Member Role: Primary Care Nurse Name: Rell Carmona MD Position: [facility] Resident Member Role: Admitting Physician Address: Address: [address] [place] [address]- Name: Emi Scott RN Position: [facility] ED RN W/OE and Tasks Member Role: Patient Care Provider Name: Alondra Vargas Position: [facility] ED TA [facility] Member Role: Industrial Refrigeration Mechanic Care Team Related PersonsName: NO ONE, PT STATES
--- OUTSIDE RECORDS SUMMARY | 2022-07-04 20:49 | XMS_ITS | Continuity of Care Document ---
:1965 Author Organization [facility] Address [address] [place] [address]- Care Team Providers Name Role Phone Not on Staff, PCP Primary Care Physician Unavailable Encounter [facility] Date(s): 02/14/22 - 02/15/[address] [address]- Discharge Disposition: A-D/C Home Attending Physician: Teresita Pedersen MD Admitting Physician: Teresita Pedersen MD Referring Physician: Not on Staff, Referring [...] Range]: 1 2 Oxygen Saturation [94-100 %] 94 % 100 % (02/15/22 1:13 AM) (02/14/22 10:01 PM) Pulse Rate [55-90 bpm] 99 bpm 106 bpm *H* *H* (02/15/22 1:13 AM) (02/14/22 10:01 PM) Blood Pressure [90-138/55-84 mm Hg] 150/110 mm Hg 145/ 104 mm Hg *H* *H* (02/15/22 1:13 AM) (02/14/22 10:01 PM) Respiratory Rate [16-30 br/min] 20 br/min 18 br/mi n (02/15/22 1:13 AM) (02/14/22 10:01 PM) Temperature [96.8-100.4 DegF] 98.4 DegF (02/14/22 10:01 PM) Mode of Delivery (Oxygen) Room air Room air (02/15/22 1:13 AM) (02/14/22 10:01 PM) Blood pressure sites Arm, left Arm, right (02/15/22 1:13 AM) (02/14/22 10:01 PM) Temperature Route Oral (02/14/22 10:01 PM) Social History Social History Type Response Smoking Status 10 or more cigarettes (1/2 p ack or more)/day in last 30 days entered on: 01/21/22 Sex Patient Care team information PersonnelName: Not on Staff, PCP
--- OUTSIDE RECORDS SUMMARY | 2022-07-04 20:49 | XMS_ITS | Continuity of Care Document ---
:1965 Author Organization [facility] Address [address] [place] [address]- Care Team Providers Name Role Phone Not on Staff, PCP Primary Care Physician Unavailable Encounter [facility] Date(s): 02/11/22 - 02/12/22 [facility] [address] [place] [address]- Encounter Diagnosis Hand pain, left (Final) - 02/12/22 Discharge Disposition: A-D/C Home Attending Physician: Feliberto Mcghee MD Admitting Physician: Feliberto Mcghee MD Referring Physician: Not on Staff, Referring [...] [Reference Range]: Oxygen Saturation [94-100 99 % 97 % 97 % %] (02/12/22 3:24 AM) (02/12/22 1:50 AM) (02/11/22 11:50 PM) Pulse Rate [55-90 bpm] 90 bpm 91 bpm 95 bpm (02/12/22 3:24 AM) *H* *H* (02/12/22 1:50 AM) (02/11/22 11: 50 PM) Blood Pressure 113/64 mm Hg 133/117 mm Hg 151/109 mm Hg [90-138/55-84 mm Hg] (02/12/22 3:24 AM) (02/12/22 1:50 AM) *H* (02/11/22 11:50 PM) Respiratory Rate [16-30 18 br/min 18 br/min 18 br/mi n br/min] (02/12/22 3:24 AM) (02/12/22 1:50 AM) (02/11/22 11:50 PM) Temperature [96.8-100.4 97.9 DegF 98.2 DegF 98.6 Deg F DegF] (02/12/22 3:24 AM) (02/12/22 1:50 AM) (02/11/22 11:50 PM) Mode of Delivery (Oxygen) Room air Room air Room a ir (02/12/22 3:24 AM) (02/12/22 1:50 AM) (02/11/22 11:50 PM) Blood pressure sites Arm, right Arm, right Arm, right (02/12/22 3:24 AM) (02/12/22 1:50 AM) (02/11/22 11:50 PM) Temperature Route Oral Oral Oral (02/12/22 3:24 AM) (02/12/22 1:50 AM) (02/11/22 11:50 PM) Social History Social History Type Response Smoking Status 10 or more cigarettes (1/2 p ack or more)/day in last 30 days entered on: 01/21/22 Sex Patient Care team information PersonnelName: Not on Staff, PCP
--- OUTSIDE RECORDS SUMMARY | 2022-07-04 20:49 | XMS_ITS | Continuity of Care Document ---
:1965 Author Organization [facility] Address [address] [place] [address]- Care Team Providers Name Role Phone Not on Staff, PCP Primary Care Physician Unavailable Encounter [facility] Date(s): 02/12/22 - 02/13/22 [facility] [address] [place] [address]- Encounter Diagnosis Muscular aches (Final) - 02/13/22 Discharge Disposition: A-D/C Home Attending Physician: Rosi [...] 3 [Reference Range]: Oxygen Saturation [94-100 %] 96 % 98 % 98 % (02/13/22 9:48 AM) (02/13/22 7:08 AM) (02/13/22 2:53 AM) Pulse Rate [55-90 bpm] 85 bpm 95 bpm 87 bpm (02/13/22 9:48 AM) *H* (02/13/22 2:5 3 AM) (02/13/22 7:08 AM) Blood Pressure [90-138/55-84 125/86 mm Hg 137/97 mm Hg 146 /106 mm Hg mm Hg] (02/13/22 9:48 AM) (02/13/22 7:08 AM) *H* (02/13/22 2:53 A M) Respiratory Rate [16-30 18 br/min br/min] (02/12/22 8:41 PM) Temperature [96.8-100.4 98.0 DegF 98.3 DegF 98.4 Deg F DegF] (02/13/22 9:48 AM) (02/13/22 7:08 AM) (02/13/22 2:53 AM) Mode of Delivery (Oxygen) Room air Room air Room a ir (02/13/22 9:48 AM) (02/13/22 7:08 AM) (02/13/22 2:53 AM) Blood pressure sites Arm, left Arm, right Arm, left (02/13/22 9:48 AM) (02/13/22 7:08 AM) (02/13/22 2:53 AM) Temperature Route Oral Oral Oral (02/13/22 9:48 AM) (02/13/22 7:08 AM) (02/13/22 2:53 AM) Social History Social History Type Response Smoking Status 10 or more cigarettes (1/2 p ack or more)/day in last 30 days entered on: 01/21/22 Sex Patient Care team information PersonnelName: Not on Staff, PCP
--- OUTSIDE RECORDS SUMMARY | 2022-07-04 20:50 | XMS_ITS | Continuity of Care Document ---
:1965 Author Organization [facility] Address [address] [place] [address]- Care Team Providers Name Role Phone Not on Staff, PCP Primary Care Physician Unavailable Encounter [facility] Date(s): 02/01/22 - 02/02/22 [facility] [address] [place] [address]- Discharge Disposition: A-D/C Walkout Attending Physician: Not [...] [Reference Range]: 1 Oxygen Saturation [94-100 %] 95 % (02/01/22 11:55 PM) Pulse Rate [55-90 bpm] 100 bpm *H* (02/01/22 11:55 PM) Blood Pressure [90-138/55-84 mm Hg] 142/97 mm Hg *H* (02/01/22 11:55 PM) Respiratory Rate [16-30 br/min] 20 br/min (02/01/22 11:55 PM) Temperature [96.8-100.4 DegF] 97.8 DegF (02/01/22 11:55 PM) Mode of Delivery (Oxygen) Room air (02/01/22 11:55 PM) Blood pressure sites Arm, left (02/01/22 11:55 PM) Temperature Route Oral (02/01/22 11:55 PM) Social History Social History Type Response Smoking Status 10 or more cigarettes (1/2 p ack or more)/day in last 30 days entered on: 01/21/22 Sex Patient Care team information PersonnelName: Not on Staff, PCP
--- OUTSIDE RECORDS SUMMARY | 2022-07-04 20:50 | XMS_ITS | Continuity of Care Document ---
:1965 Author Organization [facility] Address [address] [place] [address]- Care Team Providers Name Role Phone Not on Staff, PCP Primary Care Physician Unavailable Encounter [facility] Date(s): 02/16/22 - 02/17/[address] [address]- Encounter Diagnosis Muscle spasm (Final) - 02/17/22 COPD exacerbation (Final) - 02/17/22 Discharge Disposition: A-D/C Home Attending Physician: Wes [...] Exam Date Time Procedure Performing Provider Status 02/16/22 9:30 PM Chest Single Frontal View Bebe Morgan; Auth (Verified) Notes:(Chest Single Frontal View) Reason For Exam: Line/Tube Placement;Other: RESULT: Chest Single Frontal View Chest Single Frontal View Hx of Present Illness: Pt to Ed with right foot pain for some time . Had been coming here and [place] for same problem. Pt also with congestion and cough. denies cp or sob.; Reason: Other:; Line Tube Placement; Clinical Question(s): Other:; Confirm Position, Assess for Complication COMPARISON: None. FINDINGS: LINES AND TUBES: None. LUNGS AND PLEURA: Clear lungs. Normal pulmonary vascularity. No pleural effusion. No pneumothorax. HEART, MEDIASTINUM AND BALDEMAR: Heart is normal in size. Normal mediastinal and hilar contour. BONES AND SOFT TISSUES: Moderate right glenohumeral arthropathy. IMPRESSION: No acute abnormality. WSN: [id number] Ordering Physician: Wes Christina Dictated By: Jaziel Wong MD Dictated Date/Time: 02/16/22 9:44 pm Reviewed By: Jaziel Wong MD Signed By: Jaziel Wong MD Signed Date/Time: 02/16/22 9:44 pm Transcribed By: CSLizeth Transcribed Date/Time: 02/16/22 9:43 pm Vital Signs Most recent to oldest [Reference Range]: 1 2 Oxygen Saturation [94-100 %] 91 % 95 % *L* (02/16/22 12:39 PM) (02/17/22 12:17 AM) Pulse Rate [55-90 bpm] 94 bpm 105 bpm *H* *H* (02/17/22 12:17 AM) (02/16/22 12:39 PM) Blood Pressure [90-138/55-84 mm Hg] 155/96 mm Hg 184/ 103 mm Hg *H* *H* (02/17/22 12:17 AM) (02/16/22 12:39 PM) Respiratory Rate [16-30 br/min] 20 br/min 24 br/mi n (02/17/22 12:17 AM) (02/16/22 12:39 PM) Temperature [96.8-100.4 DegF] 99.1 DegF 98.2 DegF (02/17/22 12:17 AM) (02/16/22 12:39 PM) Mode of Delivery (Oxygen) Room air Room air (02/17/22 12:17 AM) (02/16/22 12:39 PM) Blood pressure sites Arm, right Arm, left (02/17/22 12:17 AM) (02/16/22 12:39 PM) Temperature Route Oral Oral (02/17/22 12:17 AM) (02/16/22 12:39 PM) Social History Social History Type Response Smoking Status 10 or more cigarettes (1/2 p ack or more)/day in last 30 days entered on: 01/21/22 Sex XR Chest AP [facility] , CIS S: TRANSCRIBE Jaziel Wong MD S: VERIFY Event Display: Result: Authored Date: [id number] Chest Single Frontal View Hx of Present Illness: Pt to Ed with right foot pain for some time . Had been coming here and [place] for same problem. Pt also with congestion and cough. denies cp or sob.; Reason: Other:; Line Tube Placement; Clinical Question(s): Other:; Confirm Position, Assess for Complication COMPARISON: None. FINDINGS: LINES AND TUBES: None. LUNGS AND PLEURA: Clear lungs. Normal pulmonary vascularity. No pleural effusion. No pneumothorax. HEART, MEDIASTINUM AND BALDEMAR: Heart is normal in size. Normal mediastinal and hilar contour. BONES AND SOFT TISSUES: Moderate right glenohumeral arthropathy. IMPRESSION: No acute abnormality. WSN: [id number] Ordering Physician: Wes Christina Dictated By: Jaziel Wong MD Dictated Date/Time: 02/16/22 9:44 pm Reviewed By: Jaziel Wong MD Signed By: Jaziel Wong MD Signed Date/Time: 02/16/22 9:44 pm Transcribed By: RADHA Transcribed Date/Time: 02/16/22 9:43 pm Patient Care team information PersonnelName: Not on Staff, PCP
--- OUTSIDE RECORDS SUMMARY | 2022-07-04 20:50 | XMS_ITS | Continuity of Care Document ---
:1965 Author Organization [facility] Address [address] [place] [address]- Care Team Providers Name Role Phone Not on Staff, PCP Primary Care Physician Unavailable [facility]counter [facility] Date(s): 03/22/22 - 03/22/22 [facility] [address] [place] [address]- Discharge Disposition: A-D/C Walkout Attending Physician: Not [...] 2 Oxygen Saturation [94-100 %] 99 % 97 % (03/22/22 10:08 AM) (03/22/22 6:05 AM) Pulse Rate [55-90 bpm] 77 bpm 75 bpm (03/22/22 10:08 AM) (03/22/22 6:05 AM) Blood Pressure [90-138/55-84 mm Hg] 121/96 mm Hg 124/ 100 mm Hg (03/22/22 10:08 AM) (03/22/22 6:05 AM) Respiratory Rate [16-30 br/min] 18 br/min 20 br/mi n (03/22/22 10:08 AM) (03/22/22 6:05 AM) Temperature [96.8-100.4 DegF] 97.7 DegF 97.9 DegF (03/22/22 10:08 AM) (03/22/22 6:05 AM) Mode of Delivery (Oxygen) Room air Room air (03/22/22 10:08 AM) (03/22/22 6:05 AM) Blood pressure sites Arm, right Arm, right (03/22/22 10:08 AM) (03/22/22 6:05 AM) Temperature Route Oral Oral (03/22/22 10:08 AM) (03/22/22 6:05 AM) Social History Social History Type Response Smoking Status 10 or more cigarettes (1/2 p ack or more)/day in last 30 days entered on: 01/21/22 Sex Patient Care team information Care Team PersonnelName: Not on Staff, PCP Position: [facility] Physician (General Medicine) Member Role: PCP Care Team Related PersonsName: NO ONE, PT STATES
--- OUTSIDE RECORDS SUMMARY | 2022-07-04 20:50 | XMS_ITS | Continuity of Care Document ---
:1965 Author Organization [facility] Address [address] [place] [address]- Care Team Providers Name Role Phone Not on Staff, PCP Primary Care Physician Unavailable [place] [facility] [place] - 05/03/[address] [address]- Discharge Disposition: A-D/C Walkout Attending Physician: Not [...] 04/25/22 12:47:00 EST, Route to Pharmacy Electronically, [facility], Par... Start Date: 04/25/22 Stop Date: 05/05/22 Status: OrderedAspirin Enteric Coated 81 mg oral delayed release tablet 1 tablet = 81 mg, By Mouth, Daily, # 30 tablet, 0 Refills, Maintenance, 04/25/22 12:49:00 EST, [facility], Partial fill upon patient request if the prescription is for a schedule II opioid drug., 186, cm, 04/24/22 3:07:00 EST, Height, 19... Start Date: 04/25/22 Stop Date: 05/25/22 Status: Orderedatorvastatin 40 mg oral tablet 1 tablet = 40 mg, By Mouth, Daily, # 30 tablet, 5 Refills, Maintenance, 04/25/22 12:50:00 EST, Tablet, [facility], Partial fill upon patient request if the prescription is for a schedule II opioid drug., 186, cm, 04/24/22 3:07:00 EST, He... Start Date: 04/25/22 Stop Date: 10/22/22 Status: OrderedCoreg 3.125 mg oral tablet 3.125 mg, 1, tablet, By Mouth, 2 times a day, # 60 tablet, Refills 0, Tot. Refills 0, Maintenance, 04/25/22 12:48:00 EST, Route to Pharmacy Electronically, [facility], Partial fill upon patient request if the prescription is for a schedu... Start Date: 04/25/22 Status: OrderedInvega Sustenna 156 mg/mL intramuscular suspension, extended release 1 mL = 156 mg, Intramuscular, Every 28 days, # 4 mL, 0 Refills, Maintenance, 04/25/22 14:13:00 EST, Injection, [facility], Partial fill upon patient request if the prescription is for a schedule II opioid drug., 186, cm, 04/24/22 3:07:00... Start Date: 04/25/22 Stop Date: 07/24/22 Status: OrderedLasix 40 mg oral tablet 40 mg, 1, tablet, By Mouth, Daily, # 30 tablet, Refills 0, Tot. Refills 0, Maintenance, 04/25/22 12:48:00 EST, Route to Pharmacy Electronically, [facility], Partial fill upon patient request if the prescription is for a schedule II opioi... Start Date: 04/25/22 Status: Orderedlosartan 25 mg oral tablet 25 mg, 1, tablet, By Mouth, Daily, # 30 tablet, Refills 0, Tot. Refills 0, Maintenance, 04/25/22 12:48:00 EST, Route to Pharmacy Electronically, [facility], Partial fill upon patient request if the prescription is for a schedule II opioi... Start Date: 04/25/22 Status: Ordered Problem List Condition Confirmation Course Effective Dates Status Health Stat us Informant Severe obesity Confirmed Active Vital Signs Most recent to oldest [Reference 1 2 3 Range]: Oxygen Saturation [94-100 %] 99 % 100 % 100 % (05/03/22 3:15 PM) (05/02/22 6:51 PM) (05/02/22 6:49 P M) Pulse Rate [55-90 bpm] 101 bpm 102 bpm 103 bpm *H* *H* *H* (05/03/22 3:15 PM) (05/02/22 6:51 PM) (05/02/22 6:49 P M) Blood Pressure [90-138/55-84 mm 149/98 mm Hg 114/66 mm Hg 149/98 mm Hg Hg] *H* (05/02/22 6:51 PM) *H* (05/03/22 3:15 PM) (05/02/22 6:49 PM ) Respiratory Rate [16-30 br/min] 18 br/min 16 br/min 20 br/min (05/03/22 3:15 PM) (05/02/22 6:51 PM) (05/02/22 6:49 P M) Temperature [96.8-100.4 DegF] 98.0 DegF 97.9 DegF 97 .8 DegF (05/03/22 3:15 PM) (05/02/22 6:51 PM) (05/02/22 6:49 P M) Mode of Delivery (Oxygen) Room air Room air Room a ir (05/03/22 3:15 PM) (05/02/22 6:51 PM) (05/02/22 6:49 P M) Blood pressure sites Arm, right Arm, left Arm, left (05/03/22 3:15 PM) (05/02/22 6:51 PM) (05/02/22 6:49 P M) Temperature Route Oral Oral Oral (05/03/22 3:15 PM) (05/02/22 6:51 PM) (05/02/22 6:49 P M) Social History Social History Type Response Smoking Status 10 or more cigarettes (1/2 p ack or more)/day in last 30 days entered on: 01/21/22 Sex Patient Care team information Care Team PersonnelName: Velma ALVAREZ, David Watson Position: [facility] Renal MD Member Role: Lifetime Consulting Physician Address: Address: [address] [place] [address], [address] Name: Lizet Grossman RN Position: [facility] RN Member Role: Primary Care Nurse Name: Gabi Godinez Position: [facility] RN Member Role: Primary Care Nurse Name: David Rossi RN Position: [facility] RN Member Role: Primary Care Nurse Name: Not on Staff, PCP Position: [facility] Physician (General Medicine) Member Role: PCP Name: Marielena Nixon RN Position: [facility] RN Member Role: Primary Care Nurse Name: Bina Polanco RN Position: [facility] RN Member Role: Primary Care Nurse Care Team Related PersonsName: NO ONE, PT STATES
--- OUTSIDE RECORDS SUMMARY | 2022-07-04 20:50 | XMS_ITS | Continuity of Care Document ---
:1965 Author Organization [facility] Address [address] [place] [address]- Care Team Providers Name Role Phone Not on Staff, PCP Primary Care Physician Unavailable [facility]counter [facility] Date(s): 02/09/22 - 02/10/22 [facility] [address] [place] [address]- Encounter Diagnosis Foot pain (Final) - 02/10/22 Wrist pain (Final) - 02/10/22 Discharge Disposition: A-D/C Home Attending Physician: Nghia Galeana DO Admitting Physician: Nghia Galeana DO Referring Physician: Not on Staff, Referring [...] 1 Oxygen Saturation [94-100 %] 95 % (02/10/22 12:09 AM) Pulse Rate [55-90 bpm] 90 bpm (02/10/22 12:09 AM) Blood Pressure [90-138/55-84 mm Hg] 135/99 mm Hg (02/10/22 12:09 AM) Respiratory Rate [16-30 br/min] 18 br/min (02/10/22 12:09 AM) Temperature [96.8-100.4 DegF] 98.1 DegF (02/10/22 12:09 AM) Mode of Delivery (Oxygen) Room air (02/10/22 12:09 AM) Blood pressure sites Arm, right (02/10/22 12:09 AM) Temperature Route Oral (02/10/22 12:09 AM) Social History Social History Type Response Smoking Status 10 or more cigarettes (1/2 p ack or more)/day in last 30 days entered on: 01/21/22 Sex Patient Care team information PersonnelName: Not on Staff, PCP
--- OUTSIDE RECORDS SUMMARY | 2022-07-04 20:50 | XMS_ITS | Continuity of Care Document ---
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 admission tomorrow Note Cory Buenrostro MD: PERFORM Event Display: Discharge/Transfer Note Hospital Authored Date: [id number] Patient: ??JERE SARMIENTO ? Age:??57 Years?Sex:??Male?:??1965?? Patient Information Discharge Location: A Primary Care Physician: Not on Staff, PCP Admit Date/Time: 05/04/22 21:31 Discharge Disposition Discharge Disposition: ?? Discharge Diagnosis Agitation (R45.1) Congestive heart disease (I50.9) HFrEF (heart failure with reduced ejection fraction) (I50.20) Noncompliance with medication regimen (Z91.14) Psychosis (F29) ?? _ Discharge Medications Aspirin (Aspirin Enteric Coated 81 mg oral delayed release tablet)?1?tab(s)?81?Milligram?By Mouth?Daily?for 30?Days Atorvastatin (atorvastatin 40 mg oral tablet)?1?tab(s)?40?Milligram?By Mouth?Daily?for 30?Days Carvedilol (Coreg 3.125 mg oral tablet)?3.125?Milligram?1?tablet?By Mouth?2 times a day Furosemide (Lasix 40 mg oral tablet)?40?Milligram?1?tablet?By Mouth?Daily Losartan (losartan 25 mg oral tablet)?25?Milligram?1?tablet?By Mouth?Daily Nicotine (Nicotine Gum)?2?Milligram?Chew?Every hour?as needed?Nicotine Cravings?Other paliperidone (Invega Sustenna 156 mg/mL intramuscular suspension, extended release)?1?Milliliter?156?Milligram?Intramuscular?Every 28 days?for 90?Days Risperidone (RisperDAL 1 mg oral tablet)?1?Milligram?1?tablet?By Mouth?Every 6 hours?as needed?Agitation Risperidone (RisperDAL 1 mg oral tablet)?1?Milligram?1?tablet?By Mouth?2 times a day ? Medications Started Risperidone (RisperDAL 1 mg oral tablet)?1?Milligram?1?tablet?By Mouth?Every 6 hours?as needed?Agitation Risperidone (RisperDAL 1 mg oral tablet)?1?Milligram?1?tablet?By Mouth?2 times a day Medications Discontinued None Doses Changed None Allergies Allergies ?(Active and Proposed Allergies Only) NKA? (Severity: Unknown severity, Onset: Unknown) No Known Medication Allergies? (Severity: Unknown severity, Onset: Unknown) ? Hospital Course ?? 57-year-old male with history of homelessness, morbid obesity, unspecified psychiatric disorder and recent diagnosis of HFrEF 20-25% who presented from [facility] with aggressive behavior and psychosis. Pt seen by psych. Discharging pt to psych inpt unit. In day of discharge, patient seen at bedside. ??Denying chest pain or shortness of breath. Agitation Unspecified psychosis Underlying bipolar disorder Disorganized speech, had grandiose speech, also homicidal thought content, ?? - Seen by psyc, discharge to psych unit. - patient may not leave AMA; requires inpatient psych level of care - s/p Invega Sustenna injection on 05/19 - start risperidone 1 mg BID standing; continue current PRN risperidone and haloperidol - can consider a trial of mood stabilizer such as valproate pending response to risperidone ?? HFrEF - EF 20-25% :? Echocardiogram 04/10/2022 showed EF of 20 to 25%, LV systolic function severely reduced, severe global hypokinesis with regional variation, severely dilated left atrium, moderate to severely dilated RVand reduced RV systolic function, RV free wall is akinetic, -seen by cardio on prior hospitalization .?? They did not recommend cardiac cath due to his behavioral issues and concern for compliance.He could not get stress test given significant anxiety- cardio recommended medical management -Continue losartan, Lasix, Coreg, ASA and Statin. ?? CODE STATUS: Full Objective Vital Signs?? Temperature: 98.7 DegF (05/22/22 20:00:00) Temperature Route: Oral (05/22/22 20:00:00) Pulse Rate:??97 bpm??High (05/22/22 20:00:00) Respiratory Rate: 21 br/min (05/22/22 20:00:00) Systolic Blood Pressure: 116 mm Hg (05/22/22 20:00:00) Diastolic Blood Pressure: 66 mm Hg (05/22/22 20:00:00) Blood pressure sites: Arm, right (05/22/22 20:00:00) Mean Arterial Pressure: 107 mm Hg (05/22/22 08:03:00) Pulse Pressure: 52 mm Hg (05/22/22 08:03:00) Oxygen Saturation: 97 % (05/22/22 20:00:00) Liters per Minute: 3 L/min (05/22/22 09:45:00) Mode of Delivery (Oxygen): Room air (05/22/22 20:00:00) Early Warning Score: 2 (05/22/22 21:29:11) ? . Physical Exam General?NAD, AAO HEENT?PERRLA, oropharynx clear, moist mucus membranes Pulm?CTA bilaterally, no wheezes/rhonchi/rales CV?RRR, +S1/S2, no murmurs/rubs GI?Soft, nontender, nondistended, no organomegaly, bowel sounds are present Neuro?Moves all extremities MS?no obvious deformity Psych?Mood appropriate to situation?? Pending Results Add On Lab Order ordered on 05/04/2022 Add On Lab Order ordered on 05/15/2022 Add On Lab Order ordered on 05/15/2022 Basic Metabolic Panel ordered on 05/06/2022 CBC ordered on 05/06/2022 Home Health Face to Face ^HomeHealthFTF Results Discharge Labs BLOOD COUNT & DIFF WBC 7.7 k/mm3 ()?? 05/21/2022 12:36 RBC 4.18 m/mm3 (Low)?? 05/21/2022 12:36 Hgb 11.5 Gm/dL (Low)?? 05/21/2022 12:36 Hct 37.8 % (Low)?? 05/21/2022 12:36 MCV 90.4 femtoliters ()?? 05/21/2022 12:36 MCH 27.5 pg ()?? 05/21/2022 12:36 MCHC 30.4 g/dL (Low)?? 05/21/2022 12:36 Platelet Count 310 k/mm3 ()?? 05/21/2022 12:36 RDW-SD 55.0 femtoliters (High)?? 05/21/2022 12:36 MPV 9.3 femtoliters (Low)?? 05/21/2022 12:36 Nucleated RBC (Automated) 0.0 #/100 WBC'S ()?? 05/21/2022 12:36 Abs. NRBC 0.0 k/mm3 ()?? 05/21/2022 12:36 Abs. Neut 4.6 k/mm3 ()?? 05/15/2022 14:41 Abs. Lymph 1.3 k/mm3 ()?? 05/15/2022 14:41 Abs. Panola 0.5 k/mm3 ()?? 05/15/2022 14:41 Abs. Eo 0.2 k/mm3 ()?? 05/15/2022 14:41 Abs. Baso 0.1 k/mm3 ()?? 05/15/2022 14:41 Neut % 69.0 % ()?? 05/15/2022 14:41 Lymph % 19.8 % ()?? 05/15/2022 14:41 Panola % 7.6 % ()?? 05/15/2022 14:41 Eos % 2.4 % ()?? 05/15/2022 14:41 Baso % 0.9 % ()?? 05/15/2022 14:41 Imm Gran 0.3 % ()?? 05/15/2022 14:41 Abs. Imm Gran 0.0 k/mm3 ()?? 05/15/2022 14:41 ?? CARDIAC Nt-Probnp 1281 pg/mL (High)?? 05/04/2022 18:53 ? CHEM GENERAL Sodium 139 mmol/L ()?? 05/21/2022 12:36 Potassium 4.3 mmol/L ()?? 05/21/2022 12:36 Chloride 101 mmol/L ()?? 05/21/2022 12:36 Bicarbonate Level 29 mmol/L ()?? 05/21/2022 12:36 Anion Gap 9 ()?? 05/21/2022 12:36 Glucose Level 137 mg/dL (High)?? 05/21/2022 12:36 BUN 21 mg/dL (High)?? 05/21/2022 12:36 Creatinine-Blood 0.9 mg/dL ()?? 05/21/2022 12:36 Estimated GFR Creatinine 100 ML/MIN/1.73 M2 ()?? 05/21/2022 12:36 Calcium 9.7 mg/dL ()?? 05/21/2022 12:36 Magnesium 1.7 mg/dL ()?? 05/05/2022 04:12 Protein, Total 7.0 Gm/dL ()?? 05/15/2022 14:41 Albumin 4.0 Gm/dL ()?? 05/15/2022 14:41 Alkaline Phosphatase 83 units/L ()?? 05/15/2022 14:41 AST (SGOT) 19 units/L ()?? 05/15/2022 14:41 ALT (SGPT) 18 units/L ()?? 05/15/2022 14:41 Bilirubin, Total 0.5 mg/dL ()?? 05/15/2022 14:41 Bilirubin, Direct 0.2 mg/dL ()?? 05/15/2022 14:41 Bilirubin, Indirect 0.3 mg/dL ()?? 05/15/2022 14:41 Vitamin B12 Level 352 pg/mL ()?? 05/15/2022 14:41 ?? ENDOCRINE/TUMOR MARKER TSH 2.96 uIU/mL ()?? 05/15/2022 14:41 ? HEME OTHER Hold Blue Top SPECIMEN DISCARDED AFTER 4 HOURS. ()?? 05/04/2022 18:53 ? MISC. CHEMISTRY Hold Green Top SPECIMEN DISCARDED AFTER 1 WEEK ()?? 05/04/2022 18:53 ? TOXICOLOGY/TDM Ethanol, Serum or Plasma NONE DETECTED mg/dL ()?? 05/04/2022 18:53 Barbiturate Screen, Urine NONE DETECTED ()?? 05/04/2022 18:27 Cannabinoid Screen, Urine NONE DETECTED ()?? 05/16/2022 09:15 Cocaine Metabolite Screen, Urine NONE DETECTED ()?? 05/16/2022 09:15 Benzodiazepine Screen, Urine NONE DETECTED ()?? 05/16/2022 09:15 Amphetamine Screen, Urine NONE DETECTED ()?? 05/16/2022 09:15 Opiate Screen, Urine NONE DETECTED ()?? 05/16/2022 09:15 ? VIROLOGY Influenza A PCR NEGATIVE ()?? 05/08/2022 00:13 Influenza B PCR NEGATIVE ()?? 05/08/2022 00:13 RSV PCR NEGATIVE ()?? 05/08/2022 00:13 COVID-19 by RT-PCR NEGATIVE ()?? 05/22/2022 18:33 COVID-19 PCR Specimen Source NASAL ()?? 05/22/2022 05:47 COVID-19 PCR Result NEGATIVE ()?? 05/22/2022 05:47 ? Microbiology ?? COVID-19 (2019 Novel Coronavirus) PCR?? Completed?? Source: Nasal Body Site: Nose Collected Dt/Tm: 05/15/2022 05:01 Last Updated Dt/Tm: 05/15/2022 21:33 COVID-19 (2019 Novel Coronavirus) PCR?? Completed?? Source: Nasal Body Site: Nose Collected Dt/Tm: 05/19/2022 09:59 Last Updated Dt/Tm: 05/19/2022 22:42 COVID-19 (2019 Novel Coronavirus) PCR?? Completed?? Source: Nasal Body Site: Nose Collected Dt/Tm: 05/22/2022 05:39 Last Updated Dt/Tm: 05/23/2022 01:53 ? >35 minutes spent on discharge Carolina Bray RN: PERFORM Event Display: Patient Education/Instruction Authored Date: [id number] Inpatient Adult Discharge Instructions [address] [address] Name: JERE SARMIENTO : 1965 Visit: 05/04/2022 21:31:00 Current Date: 05/23/2022 07:54 Account: [id number] Inpatient Adult Discharge Instructions We would like [...] and their families. Surveys are administered by [employer] ?? If further treatment with your primary care physician or another doctor is recommended, it is important for you to keep the appointment. Call your primary care physician or return to the Emergency Department immediately if your condition worsens, fails to improve, or new symptoms develop. If you need to find a doctor, you can call [facility] for a referral at [phone] or toll free at [phone] or log in to [email or web address].. ?? You can view and manage your care through the patient portal or by using a health care link of your choosing. [employer] is a website that allows you to securely view your medical information including your hospital discharge summary, office visit summaries, medications and follow-up visits. You can also request appointments, renew medications, and request access to your medical information using a health care link of your choosing, or just ask a question. You can enroll at [email or web address] or register during your next office visit. You have been discharged from [facility], Patient Care Unit: D6A. If you have any questions regarding these instructions after you leave, please call us and we will be happy to assist you. [facility] Your Care Team Attending Physician Porter ALVAREZ, Cory Consulting Providers Shayan ALVAREZ, Marielena Discharging Providers Porter ALVAREZ, Cory Reason for Admission pt coming from hotel. Hotel staff called as pt was beligerant...pt urinating on hotel bed multiple times.... pt cooperative for EMS Your Diagnosis Congestive heart disease Noncompliance with medication regimen Agitation Psychosis HFrEF (heart failure with reduced ejection fraction) Tests Performed Below is a partial list of the tests performed during your hospitalization. You may have had other tests and procedures not included in this list. Please discuss all test results with your provider. Alcohol Level AMPHETAMINE SCREEN, URINE Barbiturate Urine Screen Basic Metabolic Panel Benzodiazepine Urine Screen BENZODIAZEPINE, URINE SCREEN WITH CONFIRMATION BUN Calcium Level CANNABINOID SCREEN, URINE CBC CBC w/ Differential COCAINE SCREEN, URINE COVID-19 (2019 Novel Coronavirus) PCR COVID-19 (NOVEL CORONAVIRUS), PCR COVID-19, RSV, and Flu A/B, Rapid PCR Creatinine Electrolytes Glucose Level HEPATIC FUNCTION PANEL HOLD BLUE TUBE HOLD GREEN TUBE Magnesium Level OPIATES SCREEN, URINE PROBNP TSH VITAMIN B12 XR Knee 1 or 2 Views Right Primary Care Provider Not on Staff, PCP Advance Directive Health Care Proxy on File No Patient refuses to discuss No qualifying data available. Discharge Vitals Temperature: 97.5 DegF Weight: 151 kg Pulse Rate: 84 bpm ?? Respiratory Rate: 20 br/min ?? Systolic Blood Pressure: 97 mm Hg ?? Diastolic Blood Pressure: 62 mm Hg ?? Oxygen Saturation: 98 % ?? Studies Pending All tests and labs ordered during this hospital stay have been completed unless listed below. Pleasediscuss all pending results with your provider listed above in these instructions. ?? Add On Lab Order Basic Metabolic Panel CBC What to do next Instructions From Your Doctor Discharge Orders Discharge Medications JERE SARMIENTO :1965 Visit Date:05/04/2022 Medications: Please continue your medications until treatment is completed or stopped by your provider. Medications not listed below should be discontinued. Discuss any questions related to medications with your provider. What How Much When Instructions Next Dose New Nicotine (Nicotine Gum) 2 Milligram Chew Every hour as needed for Other Nicotine Cravings ?? 05/23/22 anytime as needed New Risperidone (RisperDAL 1 mg oral tablet) 1 tab(s) Oral Every 6 hours as needed for Agitation 05/23/22 Anytime as needed New Risperidone (RisperDAL 1 mg oral tablet) 1 tab(s) Oral Twice a day 05/23/22 9PM Unchanged Aspirin (Aspirin Enteric Coated 81 mg oral delayed release tablet) 1 tab(s) Oral Daily Duration: 30 Days 05/24/22 9AM Unchanged Atorvastatin (atorvastatin 40 mg oral tablet) 1 tab(s) Oral Daily Duration: 30 Days 05/24/22 9AM Unchanged Carvedilol (Coreg 3.125 mg oral tablet) 1 tab(s) Oral Twice a day 05/23/22 9PM Unchanged Furosemide (Lasix 40 mg oral tablet) 1 tab(s) Oral Daily 05/24/22 9AM Unchanged Losartan (losartan 25 mg oral tablet) 1 tab(s) Oral Daily 05/24/22 9AM Unchanged paliperidone (Invega Sustenna 156 mg/ mL intramuscular suspension, extended release) 1 Milliliter Intramuscular Every 28 days Duration: 90 Days Resume home regimen Test Results Below is a partial list of the most recent Laboratory test results done prior to this discharge. You may have had other tests and procedures not included in this list. Please discuss all test results with your provider. Alcohol Level (05/04/2022) ???Ethanol, Serum or Plasma - NONE DETECTED AMPHETAMINE SCREEN, URINE (05/16/2022) ???Amphetamine Screen, Urine - NONE DETECTED Barbiturate Urine Screen (05/04/2022) ???Barbiturate Screen, Urine - NONE DETECTED Basic Metabolic Panel (05/21/2022) ???Sodium - 139 mmol/L???Potassium - 4.3 mmol/L???Chloride - 101 mmol/L???Bicarbonate Level - 29 mmol/L???Anion Gap - 9???Glucose Level - 137 mg/dL???BUN - 21 mg/dL???Creatinine-Blood - 0.9 mg/dL???Estimated GFR Creatinine - 100 ML/MIN/1.73 M2???Calcium - 9.7 mg/dL Benzodiazepine Urine Screen (05/04/2022) ???Benzodiazepine Screen, Urine - NONE DETECTED BENZODIAZEPINE, URINE SCREEN WITH CONFIRMATION (05/16/2022) ???Benzodiazepine Screen, Urine - NONE DETECTED BUN (05/15/2022) ???BUN - 16 mg/dL Calcium Level (05/15/2022) ???Calcium - 9.4 mg/dL CANNABINOID SCREEN, URINE (05/16/2022) ???Cannabinoid Screen, Urine - NONE DETECTED CBC (05/21/2022) ???WBC - 7.7 k/mm3???RBC - 4.18 m/mm3???Hgb - 11.5 Gm/dL???Hct - 37.8 %???MCV - 90.4 femtoliters???MCH - 27.5 pg???MCHC - 30.4 g/dL???Platelet Count - 310 k/mm3???RDW-SD - 55.0 femtoliters???MPV - 9.3 femtoliters???Nucleated RBC (Automated) - 0.0 #/100 WBC'S???Abs. NRBC - 0.0 k/mm3 CBC w/ Differential (05/15/2022) ???WBC - 6.7 k/mm3???RBC - 4.00 m/mm3???Hgb - 11.4 Gm/dL???Hct - 36.7 %???MCV - 91.8 femtoliters???MCH - 28.5 pg???MCHC - 31.1 g/dL???Platelet Count - 280 k/mm3???RDW-SD - 55.6 femtoliters???MPV - 9.7 femtoliters???Nucleated RBC (Automated) - 0.0 #/100 WBC'S???Abs. NRBC - 0.0 k/mm3???Abs. Neut - 4.6 k/ mm3???Abs. Lymph - 1.3 k/mm3???Abs. Panola - 0.5 k/mm3???Abs. Eo - 0.2 k/mm3???Abs. Baso - 0.1 k/mm3???Neut % - 69.0 %???Lymph % - 19.8 %???Panola % - 7.6 %???Eos % - 2.4 %???Baso % - 0.9 %???Imm Gran - 0.3 %???Abs. Imm Gran - 0.0 k/mm3 COCAINE SCREEN, URINE (05/16/2022) ???Cocaine Metabolite Screen, Urine - NONE DETECTED COVID-19 (2019 Novel Coronavirus) PCR (05/22/2022) ???COVID-19 PCR Specimen Source - NASAL???COVID-19 PCR Result - NEGATIVE COVID-19 (NOVEL CORONAVIRUS), PCR (05/22/2022) ???COVID-19 by RT-PCR - NEGATIVE COVID-19, RSV, and Flu A/B, Rapid PCR (05/08/2022) ???Influenza A PCR - NEGATIVE???Influenza B PCR - NEGATIVE???RSV PCR - NEGATIVE???COVID-19 PCR Specimen Source - NASAL???COVID-19 PCR Result - NEGATIVE Creatinine (05/15/2022) ???Creatinine-Blood - 1.1 mg/dL???Estimated GFR Creatinine - 79 ML/MIN/1.73 M2 Electrolytes (05/15/2022) ???Sodium - 141 mmol/L???Potassium - 4.3 mmol/L???Chloride - 102 mmol/L???Bicarbonate Level - 35 mmol/L???Anion Gap - 4 Glucose Level (05/15/2022) ???Glucose Level - 107 mg/dL HEPATIC FUNCTION PANEL (05/15/2022) ???Protein, Total - 7.0 Gm/dL???Albumin - 4.0 Gm/dL???Alkaline Phosphatase - 83 units/L???AST (SGOT)- 19 units/L???ALT (SGPT) - 18 units/L???Bilirubin, Total - 0.5 mg/dL???Bilirubin, Direct - 0.2 mg/dL???Bilirubin, Indirect - 0.3 mg/dL HOLD BLUE TUBE (05/04/2022) ???Hold Blue Top - SPECIMEN DISCARDED AFTER 4 HOURS. HOLD GREEN TUBE (05/04/2022) ???Hold Green Top - SPECIMEN DISCARDED AFTER 1 WEEK Magnesium Level (05/05/2022) ???Magnesium - 1.7 mg/dL OPIATES SCREEN, URINE (05/16/2022) ???Opiate Screen, Urine - NONE DETECTED PROBNP (05/04/2022) ???Nt-Probnp - 1281 pg/mL TSH (05/15/2022) ???TSH - 2.96 uIU/mL VITAMIN B12 (05/15/2022) ???Vitamin B12 Level - 352 pg/mL Allergies (NKA means No Known Allergies) NKA No Known Medication Allergies Problems Active Problems??(1) Severe obesity?? Education Materials Below is the list of Educational Leaflet Providered with your Discharge Instructions. Valuables and Belongings I fully understand and agree that [facility] accepts no responsibility for all my personal [...] to send valuables and belongings home. ?? Safe envelope number: [id number] Deposit/Withdrawal: Deposit Money/Amount: [phone] Review of Valuable and Belonging List: With patient, With witness Disposition of Belongings: Valuables Locked Date for Pt to Sign Valuables/Belongings: 05/17/22 02:00:00 ?? Other Discharge Information ? Pulmonary Rehab Status?? Pulmonary Rehab Discharge Status?? Respiratory Rate: 20 br/min ? Common Emergency Awareness Tips IS [...] are strongly encouraged to quit. Please call [email or web address] Link at [phone] or [phone] ([phone]) or log in to [email or web address] for referrals to smoking cessation programs. ?? The National Suicide Prevention Hotline is available 17/11 if you or someone you know needs to find areason to keep living. By calling 7-770-877-[employer] (9496) you'll be connected to a skilled, trained counselor at a crisis center in your area. INPATIENT DISCHARGE INSTRUCTIONS SIGNATURE RENU SARMIENTOJERE Location:[facility] Registration Date and Time:05/04/2022 21:31 EST Primary Care Physician: Not on Staff, PCP JERE ADAMES, have received the above patient education materials/instructions and have verbalized understanding. If ambulance or transport services are being used I further acknowledge being given a choice of service. ?? If you need to contact me, please call me at this number: . Patient/Reservations Sales Supervisor Name: Patient/Reservations Sales Supervisor Signature: Relationship to Patient: Witness Name/Signature: Date: XR Knee - right 1 or 2 Views BHSPowerscribe , CIS S: TRANSCRIBE Lizet Osorio MD: VERIFY Event Display: Result: Authored Date: [id number] Examination: Right knee performed on 05/17/2022. History: Reason: Pain; Clinical Question(s): Fracture Findings: Frontal and lateral views of the right knee are compared to a prior study dated 04/08/2022. Medial compartment joint space narrowing with tricompartment osteophyte formation is present. There are no fractures. There is no joint effusion. IMPRESSION: Osteoarthritic change. There is no acute osseous abnormality. WSN: [id number] Ordering Physician: Hector Alvarez Dictated By: Lizet Osorio MD Dictated Date/Time: 05/17/22 6:39 pm Reviewed By: Lizet Osorio MD Signed By: Lizet Osorio MD Signed Date/Time: 05/17/22 6:39 pm Transcribed By: RADHA Transcribed Date/Time: 05/17/22 6:39 pm Patient Care team information Care Team PersonnelName: Kay COMER, Libertad Position: [facility] RN Member Role: Primary Care Nurse Name: Velma ALVAREZ, David Watson Position: [facility] Renal Member Role: Lifetime Consulting Physician Address: Address: [address] [place] [address]- Name: Lizet Grossman RN Position: [facility] RN Member Role: Primary Care Nurse Name: Gabi Godinez Position: [facility] RN Member Role: Primary Care Nurse Name: Giselle Merritt LPN Position: [facility] RN Member Role: Primary Care Nurse Name: Julissa Paredes RN Position: [facility] RN Member Role: Primary Care Nurse Name: David Rossi RN Position: [facility] RN Member Role: Primary Care Nurse Name: Not on Staff, PCP Position: [facility] Physician (General Medicine) Member Role: PCP Name: Marielena Nixon RN Position: [facility] RN Member Role: Primary Care Nurse Name: Bonnie Hollingsworth RN Position: [facility] RN Member Role: Primary Care Nurse Name: Vickie Anthony RN Position: [facility] RN Member Role: Primary Care Nurse Name: Day Stafford RN Position: [facility] RN Member Role: Primary Care Nurse Name: Bina Polanco RN Position: [facility] RN Member Role: Primary Care Nurse Name: Akin Lira RN Position: [facility] RN Member Role: Primary Care Nurse Name: Sonny ANAND Attending Position: [facility] ED Medicine MD Name: Armida Hutchinson Position: [facility] ED TA [facility] Member Role: Circulation Clerk Name: Chantel Jung Position: [facility] ED OA Charge Member Role: ED Associate Name: Kayli Fuchs RN Position: [facility] ED RN W/OE and Tasks Member Role: Patient Care Provider Care Team Related PersonsName: NO ONE, PT STATES
--- OUTSIDE RECORDS SUMMARY | 2022-07-04 20:50 | XMS_ITS | Continuity of Care Document ---
:1965 Author Organization [facility] Address [address] [place] [address]- Care Team Providers Name Role Phone Not on Staff, PCP Primary Care Physician Unavailable Encounter [facility] Date(s): 03/03/22 - 03/03/22 [facility] [address] [place] [address]- Discharge Disposition: A-D/C Walkout Attending Physician: Not [...] Stat us Informant Severe obesity Confirmed Active Social History Social History Type Response Smoking Status 10 or more cigarettes (1/2 p ack or more)/day in last 30 days entered on: 01/21/22 Sex Patient Care team information Care Team PersonnelName: Not on Staff, PCP Position: [facility] Physician (General Medicine) Member Role: PCP Care Team Related PersonsName: NO ONE, PT STATES
--- OUTSIDE RECORDS SUMMARY | 2022-07-04 20:50 | XMS_ITS | Continuity of Care Document ---
:1965 Author Organization [facility] Address [address] [place] [address]- Care Team Providers Name Role Phone Not on Staff, PCP Primary Care Physician Unavailable Encounter [facility] [place] Date(s): 06/15/22 - 06/15/22 [facility] [address] [place] [id number]- Discharge Disposition: A-D/C Walkout Attending Physician: Not [...] tablet, 0 Refills, Maintenance, 04/25/22 12:49:00 EST, [facility], Partial fill upon patient request if the prescription is for a schedule II opioid drug., 186, cm, 04/24/22 3:07:00 EST, Height, 19... Start Date: 04/25/22 Stop Date: 05/25/22 Status: Orderedatorvastatin 40 mg oral tablet 1 tablet = 40 mg, By Mouth, Daily, # 30 tablet, 5 Refills, Maintenance, 04/25/22 12:50:00 EST, Tablet, [facility], Partial fill upon patient request if the prescription is for a schedule II opioid drug., 186, cm, 04/24/22 3:07:00 EST, He... Start Date: 04/25/22 Stop Date: 10/22/22 Status: OrderedCoreg 3.125 mg oral tablet 3.125 mg, 1, tablet, By Mouth, 2 times a day, # 60 tablet, Refills 0, Tot. Refills 0, Maintenance, 04/25/22 12:48:00 EST, Route to Pharmacy Electronically, [facility], Partial fill upon patient request if the prescription is for a schedu... Start Date: 04/25/22 Status: OrderedInvega Sustenna 156 mg/mL intramuscular suspension, extended release 1 mL = 156 mg, Intramuscular, Every 28 days, # 4 mL, 0 Refills, Maintenance, 04/25/22 14:13:00 EST, Injection, [facility], Partial fill upon patient request if the prescription is for a schedule II opioid drug., 186, cm, 04/24/22 3:07:00... Start Date: 04/25/22 Stop Date: 07/24/22 Status: OrderedLasix 40 mg oral tablet 40 mg, 1, tablet, By Mouth, Daily, # 30 tablet, Refills 0, Tot. Refills 0, Maintenance, 04/25/22 12:48:00 EST, Route to Pharmacy Electronically, [facility], Partial fill upon patient request if the prescription is for a schedule II opioi... Start Date: 04/25/22 Status: Orderedlosartan 25 mg oral tablet 25 mg, 1, tablet, By Mouth, Daily, # 30 tablet, Refills 0, Tot. Refills 0, Maintenance, 04/25/22 12:48:00 EST, Route to Pharmacy Electronically, [facility], Partial fill upon patient request [...] 2 Oxygen Saturation [94-100 %] 94 % 96 % (06/15/22 6:55 AM) (06/15/22 2:34 AM) Pulse Rate [55-90 bpm] 95 bpm 94 bpm *H* *H* (06/15/22 6:55 AM) (06/15/22 2:34 AM) Blood Pressure [90-138/55-84 mm Hg] 159/102 mm Hg 125/ 96 mm Hg *H* (06/15/22 2:34 AM) (06/15/22 6:55 AM) Respiratory Rate [16-30 br/min] 18 br/min (06/15/22 2:34 AM) Temperature [96.8-100.4 DegF] 98.4 DegF 98.2 DegF (06/15/22 6:55 AM) (06/15/22 2:34 AM) Mode of Delivery (Oxygen) Room air Room air (06/15/22 6:55 AM) (06/15/22 2:34 AM) Blood pressure sites Arm, left Arm, right (06/15/22 6:55 AM) (06/15/22 2:34 AM) Temperature Route Oral Oral (06/15/22 6:55 AM) (06/15/22 2:34 AM) Social History Social History Type Response Smoking Status 10 or more cigarettes (1/2 p ack or more)/day in last 30 days entered on: 01/21/22 Sex Patient Care team information Care Team PersonnelName: Kay COMER, Libertad Position: [facility] RN Member Role: Primary Care Nurse Name: David Carreon MD Position: [facility] Renal MD Member Role: Lifetime Consulting Physician Address: Address: [address] [place] [address], [address] [place], [place] [address] Name: Lizet Grossman RN Position: [facility] RN Member Role: Primary Care Nurse Name: Gabi Godinez Position: S RN Member Role: Primary Care Nurse Name: Giselle Merritt LPN Position: [facility] RN Member Role: Primary Care Nurse Name: Julissa Paredes RN Position: [facility] RN Member Role: Primary Care Nurse Name: David Rossi RN Position: [facility] RN Member Role: Primary Care Nurse Name: Not on Staff, PCP Position: [facility] Physician (General Medicine) Member Role: PCP Name: Marielena Nixon RN Position: [facility] RN Member Role: Primary Care Nurse Name: Bonnie Hollingsworth RN Position: [facility] RN Member Role: Primary Care Nurse Name: Vickie Anthony RN Position: [facility] RN Member Role: Primary Care Nurse Name: Day Stafford RN Position: [facility] RN Member Role: Primary Care Nurse Name: Bina Polanco RN Position: [facility] RN Member Role: Primary Care Nurse Name: Akin Lira RN Position: [facility] RN Member Role: Primary Care Nurse Care Team Related PersonsName: NO ONE, PT STATES
--- OUTSIDE RECORDS SUMMARY | 2022-07-04 20:50 | XMS_ITS | Continuity of Care Document ---
:1965 Author Organization [facility] Address [address] [place] [address]- Care Team Providers Name Role Phone Not on Staff, PCP Primary Care Physician Unavailable Encounter [facility] Date(s): 02/21/22 - 02/22/22 [facility] [address] [place] [address]- Encounter Diagnosis Leg pain (Final) - 02/22/22 Discharge Disposition: A-D/C Home Attending Physician: Feliberto [...] Exam Date Time Procedure Performing Provider Status 02/22/22 2:35 AM Ankle Min 3 Views Right Rodriguez , Eric; Auth (V erified) Notes:(Ankle Min 3 Views Right) Reason For Exam: with Pain;TraumaRESULT: Ankle Min 3 Views Right Ankle Min 3 Views Right Hx of Present Illness: Bilat leg pain; Reason: Trauma; with Pain; Clinical Question(s): Fracture TECHNIQUE: AP, oblique, and lateral views. COMPARISON: None. FINDINGS: No evidence of acute or healing fracture or bone lesion. Intact ankle mortise and talar dome. No significant arthritic changes. Moderate plantar calcaneal spur. Tiny spur at the proximal plantarmargin of the cuboid adjacent tiny chronic calcification may reflect tendinopathy/enthesopathy. Moderate soft tissue sonogram about the ankle, greatest laterally as well as mild edema of the visualized lower leg. IMPRESSION: No acute acute bony or articular findings. Moderate soft tissue swelling about the ankle. WSN: [id number] Ordering Physician: Feliberto Mcghee Dictated By: Mateo Alfaro MD Dictated Date/Time: 02/22/22 9:24 am Reviewed By: Mateo Alfaro MD Signed By: Mateo Alfaro MD Signed Date/Time: 02/22/22 9:24 am Transcribed By: RADHA Transcribed Date/Time: 02/22/22 9:22 am Vital Signs Most recent to oldest 1 2 3 [Reference Range]: Height 190.5 cm (02/21/22 10:58 PM) Weight 165.9 kg (02/21/22 10:58 PM) Oxygen Saturation [94-100 93 % 93 % 92 % %] *L* *L* *L* (02/22/22 7:11 AM) (02/22/22 3:35 AM) (02/22/22 1:15 AM) Pulse Rate [55-90 bpm] 90 bpm 80 bpm 87 bpm (02/22/22 7:11 AM) (02/22/22 3:35 AM) (02/22/22 1:15 AM) Blood Pressure 145/100 mm Hg 155/105 mm Hg 170/90 mm Hg [90-138/55-84 mm Hg] *H* *H* *H* (02/22/22 7:11 AM) (02/22/22 1:15 AM) (02/21/22 10:01 PM) Respiratory Rate [16-30 24 br/min 22 br/min br/min] (02/22/22 1:15 AM) (02/21/22 10:01 PM) Temperature [96.8-100.4 98.6 DegF 97.7 DegF 98.5 Deg F DegF] (02/22/22 7:11 AM) (02/22/22 1:15 AM) (02/21/22 10:01 PM) Mode of Delivery (Oxygen) Room air Room air Room a ir (02/22/22 7:11 AM) (02/22/22 3:35 AM) (02/22/22 1:15 AM) Blood pressure sites Arm, right Arm, right (02/22/22 1:15 AM) (02/21/22 10:01 PM) Temperature Route Oral Oral Oral (02/22/22 7:11 AM) (02/22/22 1:15 AM) (02/21/22 10:01 PM) Dry Weight 165.9 kg (02/21/22 10:58 PM) Weight Obtained Via Patient/family stated (02/21/22 10:58 PM) Dry Weight Obtained Via Patient/family stated (02/21/22 10:58 PM) Social History Social History Type Response Smoking Status 10 or more cigarettes (1/2 p ack or more)/day in last 30 days entered on: 01/21/22 Sex XR Ankle - right GE 3 Views BHSPowerscribe , CIS S: TRANSCRIBE Mateo Alfaro MD: VERIFY Event Display: Result: Authored Date: [id number] Ankle Min 3 Views Right Hx of Present Illness: Bilat leg pain; Reason: Trauma; with Pain; Clinical Question(s): Fracture TECHNIQUE: AP, oblique, and lateral views. COMPARISON: None. FINDINGS: No evidence of acute or healing fracture or bone lesion. Intact ankle mortise and talar dome. No significant arthritic changes. Moderate plantar calcaneal spur. Tiny spur at the proximal plantarmargin of the cuboid adjacent tiny chronic calcification may reflect tendinopathy/enthesopathy. Moderate soft tissue sonogram about the ankle, greatest laterally as well as mild edema of the visualized lower leg. IMPRESSION: No acute acute bony or articular findings. Moderate soft tissue swelling about the ankle. WSN: [id number] Ordering Physician: Feliberto Mcghee Dictated By: Mateo Alfaro MD Dictated Date/Time: 02/22/22 9:24 am Reviewed By: Mateo Alfaro MD Signed By: Mateo Alfaro MD Signed Date/Time: 02/22/22 9:24 am Transcribed By: RADHA Transcribed Date/Time: 02/22/22 9:22 am Patient Care team information PersonnelName: Not on Staff, PCP
--- OUTSIDE RECORDS SUMMARY | 2022-07-04 20:50 | XMS_ITS | Continuity of Care Document ---
:1965 Author Organization [facility] Address [address] [place] [address]- Care Team Providers Name Role Phone Not on Staff, PCP Primary Care Physician Unavailable Encounter [facility] Date(s): 04/04/22 - 04/05/22 [facility] [address] [place] [address]- Discharge Disposition: A-D/C Walkout Attending Physician: Not [...] 1 Oxygen Saturation [94-100 %] 95 % (04/04/22 9:21 PM) Pulse Rate [55-90 bpm] 107 bpm *H* (04/04/22 9:21 PM) Blood Pressure [90-138/55-84 mm Hg] 143/67 mm Hg *H* (04/04/22 9:21 PM) Respiratory Rate [16-30 br/min] 20 br/min (04/04/22 9:21 PM) Temperature [96.8-100.4 DegF] 97.4 DegF (04/04/22 9:21 PM) Mode of Delivery (Oxygen) Nasal cannula (04/04/22 9:21 PM) Blood pressure sites Arm, right (04/04/22 9:21 PM) Temperature Route Oral (04/04/22 9:21 PM) Social History Social History Type Response Smoking Status 10 or more cigarettes (1/2 p ack or more)/day in last 30 days entered on: 01/21/22 Sex Patient Care team information Care Team PersonnelName: Not on Staff, PCP Position: S Physician (General Medicine) Member Role: PCP Care Team Related PersonsName: NO ONE, PT STATES
--- OUTSIDE RECORDS SUMMARY | 2022-07-04 20:50 | XMS_ITS | Continuity of Care Document ---
:1965 Author Organization [facility] Address [address] [place] [address]- Care Team Providers Name Role Phone Not on Staff, PCP Primary Care Physician Unavailable En[place] [facility] [place](s): 06/06/22 - 06/06/22 [facility] [address] [place] [address]- Discharge Disposition: A-D/C Home Attending Physician: Jose [...] tablet, 0 Refills, Maintenance, 04/25/22 12:49:00 EST, [facility], Partial fill upon patient request if the prescription is for a schedule II opioid drug., 186, cm, 04/24/22 3:07:00 EST, Height, 19... Start Date: 04/25/22 Stop Date: 05/25/22 Status: Orderedatorvastatin 40 mg oral tablet 1 tablet = 40 mg, By Mouth, Daily, # 30 tablet, 5 Refills, Maintenance, 04/25/22 12:50:00 EST, Tablet, [facility], Partial fill upon patient request if the prescription is for a schedule II opioid drug., 186, cm, 04/24/22 3:07:00 EST, He... Start Date: 04/25/22 Stop Date: 10/22/22 Status: OrderedCoreg 3.125 mg oral tablet 3.125 mg, 1, tablet, By Mouth, 2 times a day, # 60 tablet, Refills 0, Tot. Refills 0, Maintenance, 04/25/22 12:48:00 EST, Route to Pharmacy Electronically, [facility], Partial fill upon patient request if the prescription is for a schedu... Start Date: 04/25/22 Status: OrderedInvega Sustenna 156 mg/mL intramuscular suspension, extended release 1 mL = 156 mg, Intramuscular, Every 28 days, # 4 mL, 0 Refills, Maintenance, 04/25/22 14:13:00 EST, Injection, [facility], Partial fill upon patient request if the prescription is for a schedule II opioid drug., 186, cm, 04/24/22 3:07:00... Start Date: 04/25/22 Stop Date: 07/24/22 Status: OrderedLasix 40 mg oral tablet 40 mg, 1, tablet, By Mouth, Daily, # 30 tablet, Refills 0, Tot. Refills 0, Maintenance, 04/25/22 12:48:00 EST, Route to Pharmacy Electronically, [facility], Partial fill upon patient request if the prescription is for a schedule II opioi... Start Date: 04/25/22 Status: Orderedlosartan 25 mg oral tablet 25 mg, 1, tablet, By Mouth, Daily, # 30 tablet, Refills 0, Tot. Refills 0, Maintenance, 04/25/22 12:48:00 EST, Route to Pharmacy Electronically, [facility], Partial fill upon patient request [...] [Reference Range]: 1 Oxygen Saturation [94-100 %] 99 % (06/06/22 5:16 PM) Pulse Rate [55-90 bpm] 99 bpm *H* (06/06/22 5:16 PM) Blood Pressure [90-138/55-84 mm Hg] 142/100 mm Hg *H* (06/06/22 5:16 PM) Respiratory Rate [16-30 br/min] 18 br/min (06/06/22 5:16 PM) Temperature [96.8-100.4 DegF] 97.6 DegF (06/06/22 5:16 PM) Mode of Delivery (Oxygen) Room air (06/06/22 5:16 PM) Blood pressure sites Arm, left (06/06/22 5:16 PM) Temperature Route Oral (06/06/22 5:16 PM) Social History Social History Type Response Smoking Status 10 or more cigarettes (1/2 p ack or more)/day in last 30 days entered on: 01/21/22 Sex Patient Care team information Care Team PersonnelName: Kay COMER, Libertad Position: [facility] RN Member Role: Primary Care Nurse Name: Velma ALVAREZ, David Watson Position: [facility] Renal Member Role: Lifetime Consulting Physician Address: Address: [address] [place] [address], [address] Name: Ngoc COMER, Lizet Position: S RN Member Role: Primary Care Nurse Name: Gabi Godinez Position: S RN Member Role: Primary Care Nurse Name: Giselle Merritt LPN Position: S RN Member Role: Primary Care Nurse Name: Julissa Paredes RN Position: [facility] RN Member Role: Primary Care Nurse Name: David Rossi RN Position: [facility] RN Member Role: Primary Care Nurse Name: Not on Staff, PCP Position: [facility] Physician (General Medicine) Member Role: PCP Name: Marielena Nixon RN Position: [facility] RN Member Role: Primary Care Nurse Name: Bonnie Hollingsworth RN Position: [facility] RN Member Role: Primary Care Nurse Name: Vickie Anthony RN Position: [facility] RN Member Role: Primary Care Nurse Name: Day Stafford RN Position: [facility] RN Member Role: Primary Care Nurse Name: Bina Polanco RN Position: [facility] RN Member Role: Primary Care Nurse Name: Akin Lira RN Position: [facility] RN Member Role: Primary Care Nurse Name: Jose Hallman MD Position: [facility] ED Medicine MD Member Role: Admitting Physician Address: Address: [address] [place] [address] Name: Barbara Omer Position: [facility] ED RN W/OE and Tasks Member Role: Patient Care Provider Name: Jose Polanco Position: [facility] ED TA [facility] Care Team Related PersonsName: NO ONE, PT STATES
--- OUTSIDE RECORDS SUMMARY | 2022-07-04 20:50 | XMS_ITS | Continuity of Care Document ---
:1965 Author Organization [facility] Address [address] [place] [address]- Care Team Providers Name Role Phone Not on Staff, PCP Primary Care Physician Unavailable [facility]counter [facility] Date(s): 03/24/22 - 03/25/22 [facility] [address] [place] [address]- Encounter Diagnosis Chronic joint pain (Final) - 03/25/22 Discharge Disposition: A-D/C Home Attending Physician: Fabiola Parrish MD Admitting Physician: Fabiola Parrish MD Referring Physician: Not on Staff, Referring [...] Range]: Oxygen Saturation [94-100 %] 96 % 100 % 98 % (03/25/22 9:13 AM) (03/25/22 4:42 AM) (03/24/22 8:08 PM) Pulse Rate [55-90 bpm] 76 bpm 83 bpm 92 bpm (03/25/22 9:13 AM) (03/25/22 4:42 AM) *H* (03/24/22 8:08 P M) Blood Pressure [90-138/55-84 138/90 mm Hg 147/97 mm Hg 125 /77 mm Hg mm Hg] (03/25/22 9:13 AM) *H* (03/24/22 8:0 8 PM) (03/25/22 4:42 AM) Respiratory Rate [16-30 18 br/min 16 br/min br/min] (03/25/22 9:13 AM) (03/24/22 8:08 PM) Temperature [96.8-100.4 98.4 DegF 98.1 DegF 97.4 Deg F DegF] (03/25/22 9:13 AM) (03/25/22 4:42 AM) (03/24/22 8:08 PM) Mode of Delivery (Oxygen) Room air Room air Room a ir (03/25/22 9:13 AM) (03/25/22 4:42 AM) (03/24/22 8:08 PM) Blood pressure sites Arm, left Arm, left Arm, left (03/25/22 9:13 AM) (03/25/22 4:42 AM) (03/24/22 8:08 PM) Temperature Route Oral Oral Oral (03/25/22 9:13 AM) (03/25/22 4:42 AM) (03/24/22 8:08 PM) Social History Social History Type Response Smoking Status 10 or more cigarettes (1/2 p ack or more)/day in last 30 days entered on: 01/21/22 Sex Patient Care team information Care Team PersonnelName: Not on Staff, PCP Position: [facility] Physician (General Medicine) Member Role: PCP Name: Fabiola Parrish MD Position: [facility] ED Medicine MD Member Role: Admitting Physician Address: Address: [address] [place] [address] Name: Louis COMER, Kelly Bonilla Position: [facility] ED RN W/OE and Tasks Member Role: Patient Care Provider Name: Ifeanyi Mena Position: [facility] Associate Professional Member Role: ED Physician Office Assistant Receptionist Address: Address: [address] [place] [address] Care Team Related PersonsName: NO ONE, PT STATES
--- OUTSIDE RECORDS SUMMARY | 2022-07-04 20:50 | XMS_ITS | Continuity of Care Document ---
:1965 Author Organization [facility] Address [address] [place] [address]- Care Team Providers Name Role Phone Not on Staff, PCP Primary Care Physician Unavailable [place]counter [facility] [place]s): 02/25/22 - 02/26/22 [facility] [address] [place] [address]- Discharge Disposition: A-D/C Walkout Attending Physician: Not [...] Most recent to oldest [Reference Range]: 1 Respiratory Rate [16-30 br/min] 18 br/min (02/25/22 9:31 PM) Social History Social History Type Response Smoking Status 10 or more cigarettes (1/2 p ack or more)/day in last 30 days entered on: 01/21/22 Sex Patient Care team information PersonnelName: Not on Staff, PCP
--- OUTSIDE RECORDS SUMMARY | 2022-07-04 20:50 | XMS_ITS | Continuity of Care Document ---
:1965 Author Organization [facility] Address [address] [place] [address]- Care Team Providers Name Role Phone Not on Staff, PCP Primary Care Physician Unavailable [facility]counter [facility] Date(s): 02/24/22 - 02/25/22 [facility] [address] [place] [address]- Encounter Diagnosis Homelessness (Final) - 02/25/22 Discharge Disposition: A-D/C Home Attending Physician: Dangelo [...] Range]: 1 2 Oxygen Saturation [94-100 %] 95 % 99 % (02/25/22 3:33 AM) (02/24/22 10:02 PM) Pulse Rate [55-90 bpm] 99 bpm 95 bpm *H* *H* (02/25/22 3:33 AM) (02/24/22 10:02 PM) Blood Pressure [90-138/55-84 mm Hg] 151/100 mm Hg 152/ 86 mm Hg *H* *H* (02/25/22 3:33 AM) (02/24/22 10:02 PM) Respiratory Rate [16-30 br/min] 20 br/min 20 br/mi n (02/25/22 3:33 AM) (02/24/22 10:02 PM) Temperature [96.8-100.4 DegF] 97.3 DegF 98.3 DegF (02/25/22 3:33 AM) (02/24/22 10:02 PM) Mode of Delivery (Oxygen) Room air Room air (02/25/22 3:33 AM) (02/24/22 10:02 PM) Blood pressure sites Arm, right Arm, right (02/25/22 3:33 AM) (02/24/22 10:02 PM) Temperature Route Oral Oral (02/25/22 3:33 AM) (02/24/22 10:02 PM) Social History Social History Type Response Smoking Status 10 or more cigarettes (1/2 p ack or more)/day in last 30 days entered on: 01/21/22 Sex Patient Care team information PersonnelName: Not on Staff, PCP
--- OUTSIDE RECORDS SUMMARY | 2022-07-04 20:50 | XMS_ITS | Continuity of Care Document ---
:1965 Author Organization [facility] Address [address] [place] [address]- Care Team Providers Name Role Phone Not on Staff, PCP Primary Care Physician Unavailable Encounter [facility] Date(s): 02/21/22 - 02/21/22 [facility] [address] [place] [address]- Discharge Disposition: A-D/C Walkout Attending Physician: Not [...] 2 Oxygen Saturation [94-100 %] 95 % (02/21/22 12:33 AM) Pulse Rate [55-90 bpm] 94 bpm *H* (02/21/22 12:33 AM) Blood Pressure [90-138/55-84 mm Hg] 150/108 mm Hg 148/ 102 mm Hg *H* *H* (02/21/22 12:34 AM) (02/21/22 12:33 AM) Respiratory Rate [16-30 br/min] 24 br/min (02/21/22 12:33 AM) Temperature [96.8-100.4 DegF] 97.7 DegF (02/21/22 12:33 AM) Mode of Delivery (Oxygen) Room air (02/21/22 12:33 AM) Blood pressure sites Arm, right Arm, right (02/21/22 12:34 AM) (02/21/22 12:33 AM) Temperature Route Oral (02/21/22 12:33 AM) Social History Social History Type Response Smoking Status 10 or more cigarettes (1/2 p ack or more)/day in last 30 days entered on: 01/21/22 Sex Patient Care team information PersonnelName: Not on Staff, PCP
--- OUTSIDE RECORDS SUMMARY | 2022-07-04 20:50 | XMS_ITS | Continuity of Care Document ---
:1965 Author Organization [facility] Address [address] [place] [address]- Care Team Providers Name Role Phone Not on Staff, PCP Primary Care Physician Unavailable [place] [facility] [place] 07/01/22 - 07/02/22 [facility] [address] [place] [address]- Discharge Disposition: A-D/C Walkout Attending Physician: Not [...] tablet, 0 Refills, Maintenance, 04/25/22 12:49:00 EST, [facility], Partial fill upon patient request if the prescription is for a schedule II opioid drug., 186, cm, 04/24/22 3:07:00 EST, Height, 19... Start Date: 04/25/22 Stop Date: 05/25/22 Status: Orderedatorvastatin 40 mg oral tablet 1 tablet = 40 mg, By Mouth, Daily, # 30 tablet, 0 Refills, Maintenance, 06/17/22 11:45:00 EST, Tablet, [facility], Partial fill upon patient request if the prescription is for a schedule II opioid drug., 186, cm, 04/24/22 3:07:00 EST, He... Start Date: 06/17/22 Status: Orderedatorvastatin 40 mg oral tablet 1 tablet = 40 mg, By Mouth, Daily, # 30 tablet, 5 Refills, Maintenance, 04/25/22 12:50:00 EST, Tablet, [facility], Partial fill upon patient request if the prescription is for a schedule II opioid drug., 186, cm, 04/24/22 3:07:00 EST, He... Start Date: 04/25/22 Stop Date: 10/22/22 Status: OrderedCoreg 3.125 mg oral tablet 3.125 mg, 1, tablet, By Mouth, 2 times a day, # 60 tablet, Refills 0, Tot. Refills 0, Maintenance, 06/17/22 11:46:00 EST, Route to Pharmacy Electronically, [facility], Partial fill upon patient request if the prescription is for a schedu... Start Date: 06/17/22 Status: OrderedCoreg 3.125 mg oral tablet 3.125 mg, 1, tablet, By Mouth, 2 times a day, # 60 tablet, Refills 0, Tot. Refills 0, Maintenance, 04/25/22 12:48:00 EST, Route to Pharmacy Electronically, [facility], Partial fill upon patient request if the prescription is for a schedu... Start Date: 04/25/22 Status: OrderedInvega Sustenna 156 mg/mL intramuscular suspension, extended release 1 mL = 156 mg, Intramuscular, Every 28 days, # 4 mL, 0 Refills, Maintenance, 04/25/22 14:13:00 EST, Injection, [facility], Partial fill upon patient request if the prescription is for a schedule II opioid drug., 186, cm, 04/24/22 3:07:00... Start Date: 04/25/22 Stop Date: 07/24/22 Status: OrderedLasix 40 mg oral tablet 40 mg, 1, tablet, By Mouth, Daily, # 30 tablet, Refills 0, Tot. Refills 0, Maintenance, 06/17/22 11:45:00 EST, Route to Pharmacy Electronically, [facility], Partial fill upon patient request if the prescription is for a schedule II opioi... Start Date: 06/17/22 Status: OrderedLasix 40 mg oral tablet 40 mg, 1, tablet, By Mouth, Daily, # 30 tablet, Refills 0, Tot. Refills 0, Maintenance, 04/25/22 12:48:00 EST, [facility] to Pharmacy [facility]ically, [facility], Partial fill upon patient request if the prescription is for a schedule II opioi... Start Date: 04/25/22 Status: Orderedlosartan 25 mg oral tablet 25 mg, 1, tablet, By Mouth, Daily, # 30 tablet, Refills 0, Tot. Refills 0, Maintenance, 06/17/22 11:46:00 EST, Route to Pharmacy Electronically, [facility], Partial fill upon patient request if the prescription is for a schedule II opioi... Start Date: 06/17/22 Status: Orderedlosartan 25 mg oral tablet 25 mg, 1, tablet, By Mouth, Daily, # 30 tablet, Refills 0, Tot. Refills 0, Maintenance, 04/25/22 12:48:00 EST, Route to Pharmacy Electronically, [facility], Partial fill upon patient request [...] 06/17/22 11:45:00 EST, Route to Pharmacy Electronically, [facility], Partial fill upon patient request if the prescription is for a schedule I... Start Date: 06/17/22 Status: Ordered Problem List Condition Confirmation Course Effective Dates Status Health Stat us Informant Severe obesity Confirmed Active Vital Signs Most recent to oldest [Reference Range]: 1 2 Height 183 cm (07/01/22 7:51 AM) Oxygen Saturation [94-100 %] 99 % 97 % (07/01/22 12:07 PM) (07/01/22 7:51 AM) Pulse Rate [55-90 bpm] 89 bpm 97 bpm (07/01/22 12:07 PM) *H* (07/01/22 7:51 AM) Blood Pressure [90-138/55-84 mm Hg] 147/98 mm Hg 153/ 123 mm Hg *H* *H* (07/01/22 12:07 PM) (07/01/22 7:51 AM) Respiratory Rate [16-30 br/min] 18 br/min 20 br/mi n (07/01/22 12:07 PM) (07/01/22 7:51 AM) Temperature [96.8-100.4 DegF] 98.0 DegF 98.5 DegF (07/01/22 12:07 PM) (07/01/22 7:51 AM) Mode of Delivery (Oxygen) Room air Room air (07/01/22 12:07 PM) (07/01/22 7:51 AM) Blood pressure sites Arm, right (07/01/22 7:51 AM) Temperature Route Oral Oral (07/01/22 12:07 PM) (07/01/22 7:51 AM) Dry Weight 166 kg (07/01/22 7:51 AM) Weight Obtained Via Infant scale (07/01/22 7:51 AM) Dry Weight Obtained Via Patient/family stated (07/01/22 7:51 AM) Social History Social History Type Response Smoking Status 10 or more cigarettes (1/2 p ack or more)/day in last 30 days entered on: 01/21/22 Sex Patient Care team information Care Team PersonnelName: Libertad Villanueva RN Position: [facility] RN Member Role: Primary Care Nurse Name: David Carreon MD Position: [facility] Renal MD Member Role: Lifetime Consulting Physician Address: Address: [address] [place] [address], [address] Name: Lizet Grossman RN Position: [facility] RN Member Role: Primary Care Nurse Name: Gabi Godinez Position: S RN Member Role: Primary Care Nurse Name: Giselle Merritt LPN Position: [facility] RN Member Role: Primary Care Nurse Name: Julissa Paredes RN Position: [facility] RN Member Role: Primary Care Nurse Name: David Rossi RN Position: [facility] RN Member Role: Primary Care Nurse Name: Not on Staff, PCP Position: [facility] Physician (General Medicine) Member Role: PCP Name: Marielena Nixon RN Position: [facility] RN Member Role: Primary Care Nurse Name: Bonnie Hollingsworth RN Position: [facility] RN Member Role: Primary Care Nurse Name: Vickie Anthony RN Position: [facility] RN Member Role: Primary Care Nurse Name: Day Stafford RN Position: [facility] RN Member Role: Primary Care Nurse Name: Bina Polanco RN Position: [facility] RN Member Role: Primary Care Nurse Name: Akin Lira RN Position: [facility] RN Member Role: Primary Care Nurse Care Team Related PersonsName: NO ONE, PT STATES
--- OUTSIDE RECORDS SUMMARY | 2022-07-04 20:50 | XMS_ITS | Continuity of Care Document ---
:1965 Author Organization [facility] Address [address] [place] [address]- Care Team Providers Name Role Phone Not on Staff, PCP Primary Care Physician Unavailable Encounter [facility] Date(s): 02/18/22 - 02/19/[address] [address]- Discharge Disposition: A-D/C Home Attending Physician: Matt [...] 2 3 [Reference Range]: Oxygen Saturation [94-100 93 % 94 % %] *L* (02/18/22 10:16 PM) (02/19/22 5:09 AM) Pulse Rate [55-90 bpm] 80 bpm 98 bpm 88 bpm (02/19/22 8:42 AM) *H* (02/18/22 10: 16 PM) (02/19/22 5:09 AM) Blood Pressure 147/109 mm Hg 130/67 mm Hg 149/94 mm Hg [90-138/55-84 mm Hg] *H* (02/19/22 5:09 AM) *H* (02/19/22 8:42 AM) (02/18/22 10: 16 PM) Respiratory Rate [16-30 22 br/min 20 br/min 24 br/mi n br/min] (02/19/22 8:42 AM) (02/19/22 5:09 AM) (02/18/22 10:16 PM) Temperature [96.8-100.4 97.6 DegF 97.8 DegF 97.8 Deg F DegF] (02/19/22 8:42 AM) (02/19/22 5:09 AM) (02/18/22 10:16 PM) Mode of Delivery (Oxygen) Room air Room air Room a ir (02/19/22 8:42 AM) (02/19/22 5:09 AM) (02/18/22 10:16 PM) Blood pressure sites Arm, left Arm, right (02/19/22 8:42 AM) (02/19/22 5:09 AM) Temperature Route Oral Oral Oral (02/19/22 8:42 AM) (02/19/22 5:09 AM) (02/18/22 10:16 PM) Social History Social History Type Response Smoking Status 10 or more cigarettes (1/2 p ack or more)/day in last 30 days entered on: 01/21/22 Sex Patient Care team information PersonnelName: Not on Staff, PCP
--- OUTSIDE RECORDS SUMMARY | 2022-07-04 20:50 | XMS_ITS | Continuity of Care Document ---
:1965 Author Organization [facility] Address [address] [place] [address]- Care Team Providers Name Role Phone Not on Staff, PCP Primary Care Physician Unavailable [place] [facility] [place] 01/27[place] [facility] [address] [place] [address]- Encounter Diagnosis Chronic wrist pain (Final) - 01/27/22 Discharge Disposition: A-D/C Home Attending Physician: Leonidas Frazier MD Admitting Physician: Leonidas Frazier MD Referring Physician: Not on Staff, Referring MD Allergies, Adverse Reactions, Alerts No Known Medication Allergies Medications ibuprofen 400 mg oral tablet 400 mg, 1, tablet, By Mouth, Every 8 hours, for 3 days, PRN pain, # 9 tablet, Refills 0, Tot. Refills 0, Acute 01/30/22 8:19:00 EDT, 01/27/22 8:19:00 EDT, Route to Pharmacy Electronically, [facility], Partial fill upon patient [...] 3 [Reference Range]: Oxygen Saturation [94-100 %] 100 % 100 % 96 % (01/27/22 9:12 AM) (01/27/22 8:46 AM) (01/27/22 12: 21 AM) Pulse Rate [55-90 bpm] 95 bpm 92 bpm 80 bpm *H* *H* (01/27/22 12:21 A M) (01/27/22 9:12 AM) (01/27/22 8:46 AM) Blood Pressure [90-138/55-84 151/105 mm Hg 140/111 mm Hg 139 /93 mm Hg mm Hg] *H* *H* *H* (01/27/22 9:12 AM) (01/27/22 8:46 AM) (01/27/22 12: 21 AM) Respiratory Rate [16-30 18 br/min 16 br/min 20 br/mi n br/min] (01/27/22 9:12 AM) (01/27/22 8:46 AM) (01/26/22 4:1 6 PM) Temperature [96.8-100.4 DegF] 97.7 DegF 98.3 DegF (01/26/22 8:14 PM) (01/26/22 4:16 PM) Mode of Delivery (Oxygen) Room air Room air Room a ir (01/27/22 9:12 AM) (01/27/22 12:21 AM) (01/26/22 8: 14 PM) Blood pressure sites Arm, right Arm, right Arm, right (01/27/22 9:12 AM) (01/27/22 12:21 AM) (01/26/22 8: 14 PM) Temperature Route Oral Oral (01/26/22 8:14 PM) (01/26/22 4:16 PM) Social History Social History Type Response Smoking Status 10 or more cigarettes (1/2 p ack or more)/day in last 30 days entered on: 01/21/22 Sex Patient Care team information PersonnelName: Not on Staff, PCP
--- OUTSIDE RECORDS SUMMARY | 2022-07-04 20:50 | XMS_ITS | Continuity of Care Document ---
:1965 Author Organization [facility] Address [address] [place] [address]- Care Team Providers Name Role Phone Not on Staff, PCP Primary Care Physician Unavailable [facility]counter [facility] Date(s): 05/28/22 - 06/27/22 [facility] [address] [place] [id number] Allergies, Adverse Reactions, Alerts No Known Allergies [...] tablet, 0 Refills, Maintenance, 04/25/22 12:49:00 EST, [facility], Partial fill upon patient request if the prescription is for a schedule II opioid drug., 186, cm, 04/24/22 3:07:00 EST, Height, 19... Start Date: 04/25/22 Stop Date: 05/25/22 Status: Orderedatorvastatin 40 mg oral tablet 1 tablet = 40 mg, By Mouth, Daily, # 30 tablet, 0 Refills, Maintenance, 06/17/22 11:45:00 EST, Tablet, [facility], Partial fill upon patient request if the prescription is for a schedule II opioid drug., 186, cm, 04/24/22 3:07:00 EST, He... Start Date: 06/17/22 Status: Orderedatorvastatin 40 mg oral tablet 1 tablet = 40 mg, By Mouth, Daily, # 30 tablet, 5 Refills, Maintenance, 04/25/22 12:50:00 EST, Tablet, [facility], Partial fill upon patient request if the prescription is for a schedule II opioid drug., 186, cm, 04/24/22 3:07:00 EST, He... Start Date: 04/25/22 Stop Date: 10/22/22 Status: OrderedCoreg 3.125 mg oral tablet 3.125 mg, 1, tablet, By Mouth, 2 times a day, # 60 tablet, Refills 0, Tot. Refills 0, Maintenance, 06/17/22 11:46:00 EST, Route to Pharmacy Electronically, [facility], Partial fill upon patient request if the prescription is for a schedu... Start Date: 06/17/22 Status: OrderedCoreg 3.125 mg oral tablet 3.125 mg, 1, tablet, By Mouth, 2 times a day, # 60 tablet, Refills 0, Tot. Refills 0, Maintenance, 04/25/22 12:48:00 EST, Route to Pharmacy Electronically, [facility], Partial fill upon patient request if the prescription is for a schedu... Start Date: 04/25/22 Status: OrderedInvega Sustenna 156 mg/mL intramuscular suspension, extended release 1 mL = 156 mg, Intramuscular, Every 28 days, # 4 mL, 0 Refills, Maintenance, 04/25/22 14:13:00 EST, Injection, [facility], Partial fill upon patient request if the prescription is for a schedule II opioid drug., 186, cm, 04/24/22 3:07:00... Start Date: 04/25/22 Stop Date: 07/24/22 Status: OrderedLasix 40 mg oral tablet 40 mg, 1, tablet, By Mouth, Daily, # 30 tablet, Refills 0, Tot. Refills 0, Maintenance, 06/17/22 11:45:00 EST, Route to Pharmacy Electronically, [facility], Partial fill upon patient request if the prescription is for a schedule II opioi... Start Date: 06/17/22 Status: OrderedLasix 40 mg oral tablet 40 mg, 1, tablet, By Mouth, Daily, # 30 tablet, Refills 0, Tot. Refills 0, Maintenance, 04/25/22 12:48:00 EST, Route to Pharmacy Electronically, [facility], Partial fill upon patient request if the prescription is for a schedule II opioi... Start Date: 04/25/22 Status: Orderedlosartan 25 mg oral tablet 25 mg, 1, tablet, By Mouth, Daily, # 30 tablet, Refills 0, Tot. Refills 0, Maintenance, 06/17/22 11:46:00 EST, Route to Pharmacy Electronically, [facility], Partial fill upon patient request if the prescription is for a schedule II opioi... Start Date: 06/17/22 Status: Orderedlosartan 25 mg oral tablet 25 mg, 1, tablet, By Mouth, Daily, # 30 tablet, Refills 0, Tot. Refills 0, Maintenance, 04/25/22 12:48:00 EST, Route to Pharmacy Electronically, [facility], Partial fill upon patient request [...] 06/17/22 11:45:00 EST, Route to Pharmacy Electronically, [facility], Partial fill upon patient [...] Nurse Name: Velma ALVAREZ, David Watson Position: [facility] Renal MD Member Role: Lifetime Consulting Physician Address: Address: [address] [place] [address], [address] Name: Lizet Grossman RN Position: S RN [...] Nurse Name: Not on Staff, PCP Position: [facility] Physician (General Medicine) Member Role: PCP Name: Marielena Nixon RN Position: S RN Member Role: Primary Care Nurse Name: Bonnie Hollingsworth RN Position: S RN Member Role: Primary Care Nurse Name: Vickie Anthony RN Position: S RN Member Role: Primary Care Nurse Name: Day Stafford RN Position: S RN Member Role: Primary Care Nurse Name: Bina Polanco RN Position: S RN Member Role: Primary Care Nurse Name: Akin Lira RN Position: S RN Member Role: Primary Care Nurse Care Team Related PersonsName: NO ONE, PT STATES
--- OUTSIDE RECORDS SUMMARY | 2022-07-04 20:50 | XMS_ITS | Continuity of Care Document ---
:1965 Author Organization [facility] Address [address] [place] [address]- Care Team Providers Name Role Phone Not on Staff, PCP Primary Care Physician Unavailable Encounter [facility] [place] Date(s): 01/27/22 - 01/28/22 [facility] [address] [place] [address]- Encounter Diagnosis Homeless single person (Final) - 01/28/22 Discharge Disposition: A-D/C Home Attending Physician: Dangelo [...] 01/27/22 8:19:00 EDT, Route to Pharmacy Electronically, [facility], Partial fill upon patient [...] Range]: Oxygen Saturation [94-100 %] 96 % 96 % 98 % (01/28/22 5:47 AM) (01/28/22 4:32 AM) (01/27/22 8:4 7 PM) Pulse Rate [55-90 bpm] 98 bpm 96 bpm 112 bpm *H* *H* *H* (01/28/22 5:47 AM) (01/28/22 4:32 AM) (01/27/22 8:4 7 PM) Blood Pressure [90-138/55-84 mm 141/95 mm Hg 139/95 mm Hg 150/86 mm Hg Hg] *H* *H* *H* (01/28/22 5:47 AM) (01/28/22 4:32 AM) (01/27/22 8:4 7 PM) Respiratory Rate [16-30 br/min] 20 br/min 20 br/min 25 br/min (01/28/22 5:47 AM) (01/28/22 4:32 AM) (01/27/22 8:4 7 PM) Temperature [96.8-100.4 DegF] 97.9 DegF 97.9 DegF 98 .2 DegF (01/28/22 5:47 AM) (01/28/22 4:32 AM) (01/27/22 8:4 7 PM) Mode of Delivery (Oxygen) Room air Room air Room a ir (01/28/22 5:47 AM) (01/28/22 4:32 AM) (01/27/22 8:4 7 PM) Blood pressure sites Arm, right Arm, right Arm, right (01/28/22 5:47 AM) (01/28/22 4:32 AM) (01/27/22 8:4 7 PM) Temperature Route Oral Oral Oral (01/28/22 5:47 AM) (01/28/22 4:32 AM) (01/27/22 8:4 7 PM) Social History Social History Type Response Smoking Status 10 or more cigarettes (1/2 p ack or more)/day in last 30 days entered on: 01/21/22 Sex Patient Care team information PersonnelName: Not on Staff, PCP
--- OUTSIDE RECORDS SUMMARY | 2022-07-04 20:50 | XMS_ITS | Continuity of Care Document ---
:1965 Author Organization [facility] Address [address] [place] [address]- Care Team Providers Name Role Phone Not on Staff, PCP Primary Care Physician Unavailable Encounter [facility] [place] Date(s): 04/05/22 - 04/05/22 [facility] [address] [place] [address]- Encounter Diagnosis Homeless (Final) - 04/05/22 Discharge Disposition: A-D/C Walkout Attending Physician: Kris Block MD Admitting Physician: Kris Block MD [...] 2 Oxygen Saturation [94-100 %] 98 % 98 % (04/05/22 11:20 PM) (04/05/22 9:50 PM) Pulse Rate [55-90 bpm] 76 bpm 84 bpm (04/05/22 11:20 PM) (04/05/22 9:50 PM) Blood Pressure [90-138/55-84 mm Hg] 143/76 mm Hg 140/ 93 mm Hg *H* *H* (04/05/22 11:20 PM) (04/05/22 9:50 PM) Respiratory Rate [16-30 br/min] 18 br/min 19 br/mi n (04/05/22 11:20 PM) (04/05/22 9:50 PM) Temperature [96.8-100.4 DegF] 98 DegF 98.2 DegF (04/05/22 11:20 PM) (04/05/22 9:50 PM) Mode of Delivery (Oxygen) Room air Room air (04/05/22 11:20 PM) (04/05/22 9:50 PM) Temperature Route Oral Oral (04/05/22 11:20 PM) (04/05/22 9:50 PM) Social History Social History Type Response Smoking Status 10 or more cigarettes (1/2 p ack or more)/day in last 30 days entered on: 01/21/22 Sex Patient Care team information Care Team PersonnelName: Not on Staff, PCP Position: [facility] Physician (General Medicine) Member Role: PCP Name: *[facility], ED Attending Position: [facility] ED Attendings Patient Name: Kris Block MD Position: [facility] Resident Member Role: Admitting Physician Address: Address: [address] [place] [id number] Name: Shaina Boogie RN Position: [facility] ED RN W/OE and Tasks Member Role: Patient Care Provider Care Team Related PersonsName: NO ONE, PT STATES
--- OUTSIDE RECORDS SUMMARY | 2022-07-04 20:50 | XMS_ITS | Continuity of Care Document ---
:1965 Author Organization [facility] Address [address] [place] [address]- Care Team Providers Name Role Phone Not on Staff, PCP Primary Care Physician Unavailable Encounter [facility] Date(s): 01/30/22 - 01/31/[address] [address]- Encounter Diagnosis Swollen feet (Final) - 01/31/22 Discharge Disposition: A-D/C Home Attending Physician: Natanael Scott DO Admitting Physician: Natanael Scott DO Referring Physician: Not on Staff, Referring [...] 1 2 Height 183 cm 183 cm (01/31/22 3:24 AM) (01/30/22 10:46 PM) Weight 162 kg 162 kg (01/31/22 3:24 AM) (01/30/22 10:46 PM) Oxygen Saturation [94-100 %] 96 % 100 % (01/31/22 3:24 AM) (01/30/22 10:46 PM) Pulse Rate [55-90 bpm] 102 bpm 104 bpm *H* *H* (01/31/22 3:24 AM) (01/30/22 10:46 PM) Body Mass Index [18.5-24.99 kg/m2] 48.37 kg/m2 *>HHI* (01/31/22 3:24 AM) Blood Pressure [90-138/55-84 mm Hg] 157/108 mm Hg 152/ 108 mm Hg *H* *H* (01/31/22 3:24 AM) (01/30/22 10:46 PM) Respiratory Rate [16-30 br/min] 18 br/min 20 br/mi n (01/31/22 3:24 AM) (01/30/22 10:46 PM) Mode of Delivery (Oxygen) Room air Room air (01/31/22 3:24 AM) (01/30/22 10:46 PM) Blood pressure sites Arm, left Arm, right (01/31/22 3:24 AM) (01/30/22 10:46 PM) Temperature Route Temporal (01/30/22 10:46 PM) Dry Weight 162 kg 162 kg (01/31/22 3:24 AM) (01/30/22 10:46 PM) Social History Social History Type Response Smoking Status 10 or more cigarettes (1/2 p ack or more)/day in last 30 days entered on: 01/21/22 Sex Patient Care team information PersonnelName: Not on Staff, PCP
--- OUTSIDE RECORDS SUMMARY | 2022-07-04 20:50 | XMS_ITS | Continuity of Care Document ---
:1965 Author Organization [facility] Address [address] [place] [address]- Care Team Providers Name Role Phone Not on Staff, PCP Primary Care Physician Unavailable Encounter [facility] Date(s): 03/23/22 - 03/23/22 [facility] [address] [place] [address]- Encounter Diagnosis Arm pain (Final) - 03/23/22 Discharge Disposition: A-D/C Home Attending Physician: Lonny [...] Range]: Oxygen Saturation [94-100 %] 98 % 97 % 100 % (03/23/22 7:37 PM) (03/23/22 3:32 PM) (03/23/22 6:46 AM) Pulse Rate [55-90 bpm] 78 bpm 68 bpm 82 bpm (03/23/22 7:37 PM) (03/23/22 3:32 PM) (03/23/22 6:46 AM) Blood Pressure [90-138/55-84 142/88 mm Hg 133/98 mm Hg 142 /107 mm Hg mm Hg] *H* (03/23/22 3:32 PM) *H* (03/23/22 7:37 PM) (03/23/22 6:4 6 AM) Respiratory Rate [16-30 18 br/min 18 br/min 20 br/mi n br/min] (03/23/22 7:37 PM) (03/23/22 3:32 PM) (03/23/22 1:47 AM) Temperature [96.8-100.4 97.4 DegF 97.7 DegF DegF] (03/23/22 6:46 AM) (03/23/22 1:47 AM) Mode of Delivery (Oxygen) Room air Room air (03/23/22 7:37 PM) (03/23/22 1:47 AM) Blood pressure sites Arm, left Arm, right Arm, right (03/23/22 7:37 PM) (03/23/22 6:46 AM) (03/23/22 1:47 AM) Temperature Route [place] (03/23/22 6:46 AM) (03/23/22 1:47 AM) Social History Social History Type Response Smoking Status 10 or more cigarettes (1/2 p ack or more)/day in last 30 days entered on: 01/21/22 Sex Note Yaya Valverde DO: PERFORM, SIGN, VERIFY Event Display: Patient Education Handout Authored Date: [id number] Patient Care team information Care Team PersonnelName: Not on Staff, PCP Position: [facility] Physician (General Medicine) Member Role: PCP Name: Korina Piña Position: [facility] ED TA [facility] Member Role: Label Machine Operator Name: Lonny Trinidad MD Position: [facility] ED Medicine MD Member Role: Admitting Physician Address: Address: [address] [place] [address]- Name: Day Valerio RN Position: [facility] ED RN W/OE and Tasks Member Role: Patient Care Provider Name: Yaya Valverde DO Position: [facility] Resident Member Role: ED Resident Address: Address: [address] [place] [address] [place] [address]- Care Team Related PersonsName: NO ONE, PT STATES
--- OUTSIDE RECORDS SUMMARY | 2022-07-04 20:50 | XMS_ITS | Continuity of Care Document ---
:1965 Author Organization [facility] Address [address] [place] [address]- Care Team Providers Name Role Phone Not on Staff, PCP Primary Care Physician Unavailable Encounter [facility] Date(s): 02/08/22 - 02/09/22 [facility] [address] [place] [address]- Discharge Disposition: A-D/C Home Attending Physician: Fabiola [...] Saturation [94-100 %] 100 % 97 % (02/09/22 8:31 AM) (02/08/22 7:58 PM) Pulse Rate [55-90 bpm] 88 bpm 100 bpm (02/09/22 8:31 AM) *H* (02/08/22 7:58 PM) Blood Pressure [90-138/55-84 mm Hg] 155/95 mm Hg 146/ 93 mm Hg *H* *H* (02/09/22 8:31 AM) (02/08/22 7:58 PM) Respiratory Rate [16-30 br/min] 18 br/min 18 br/mi n (02/09/22 8:31 AM) (02/08/22 7:58 PM) Temperature [96.8-100.4 DegF] 97.5 DegF 98.4 DegF (02/09/22 8:31 AM) (02/08/22 7:58 PM) Mode of Delivery (Oxygen) Room air Room air (02/09/22 8:31 AM) (02/08/22 7:58 PM) Blood pressure sites Arm, right Arm, right (02/09/22 8:31 AM) (02/08/22 7:58 PM) Temperature Route [place] (02/09/22 8:31 AM) (02/08/22 7:58 PM) Social History Social History Type Response Smoking Status 10 or more cigarettes (1/2 p ack or more)/day in last 30 days entered on: 01/21/22 Sex Patient Care team information PersonnelName: Not on Staff, PCP
--- OUTSIDE RECORDS SUMMARY | 2022-07-04 20:50 | XMS_ITS | Continuity of Care Document ---
:1965 Author Organization [facility] Address [address] [place] [address]- Care Team Providers Name Role Phone Not on Staff, PCP Primary Care Physician Unavailable [facility]counter [facility] Date(s): 03/10/22 - 03/10/22 [facility] [address] [place] [address]- Encounter Diagnosis right knee pain (Final) - 03/10/22 Discharge Disposition: A-D/C Home Attending Physician: Devika [...] Exam Date Time Procedure Performing Provider Status 03/10/22 10:28 AM Wrist Comp Min 3 Views Left Khoi , Dominga ; Auth (Verified) Notes:(Wrist Comp Min 3 Views Left) Reason For Exam: PainRESULT: Wrist Comp Min 3 Views Left Wrist Comp Min 3 Views Left Hx of Present Illness: pt states he has right wrist and bilat leg pain; Reason: Pain; Clinical Question(s): Arthritis COMPARISON: None. FINDINGS: No fracture or dislocation. Small corticated ossicle at the base of the first metacarpal, normal variant. No arthritic change. Normal carpal configuration. Intact radial and ulnar styloid processes. Normal soft tissues. IMPRESSION: No acute abnormality. I have personally reviewed the images and I agree with this report. WSN: [id number] Ordering Physician: Ifeanyi Barber Dictated By: Jazmyn Porras MD Dictated Date/Time: 03/10/22 11:10 a Reviewed By: Patrice Meza MD, V Signed By: Patrice Meza MD, V Signed Date/Time: 03/10/22 11:15 am Transcribed By: RADHA Transcribed Date/Time: 03/10/22 10:53 am Exam Date Time Procedure Performing Provider Status 03/10/22 10:28 AM Foot Min 3 Views Right Khoi , Dominga; Aut h (Verified) Notes:(Foot Min 3 Views Right) Reason For Exam: PainRESULT: Foot Min 3 Views Right Foot Min 3 Views Right, 3 views Hx of Present Illness: pt states he has right wrist and bilat leg pain; Reason: Pain; Clinical Question(s): Arthritis COMPARISON: Ankle radiographs from 02/22/2022. FINDINGS: No fractures or bone lesions. No arthritic changes. Small plantar spurs at the cuboid and calcaneus. Mild soft tissues thickening at the plantar aspect of the forefoot. IMPRESSION: No acute fracture. I have personally reviewed the images and I agree with this report. WSN: [id number] Ordering Physician: Ifeanyi Barber Dictated By: Jazmyn Porras MD Dictated Date/Time: 03/10/22 11:09 a Reviewed By: Patrice Meza MD, V Signed By: Patrice Meza MD, V Signed Date/Time: 03/10/22 11:14 am Transcribed By: RADHA Transcribed Date/Time: 03/10/22 10:50 am Exam Date Time Procedure Performing Provider Status 03/10/22 10:28 AM Knee 1 or 2 Views Right Khoi , Dominga; Au th (Verified) Notes:(Knee 1 or 2 Views Right) Reason For Exam: PainRESULT: Knee 1 or 2 Views Right Knee 1 or 2 Views Right, 2 views Hx of Present Illness: pt states he has right wrist and bilat leg pain; Reason: Pain; Clinical Question(s): Arthritis COMPARISON: None. FINDINGS: There is no evidence of acute or healing fracture, dislocation or bone lesion. Minimal degenerative changes at the knee joint with severe narrowing of the medial compartment. No evidence of joint effusion. IMPRESSION: No acute abnormality. Degenerative changes with severe narrowing of the medial compartment. I have personally reviewed the images and I agree with this report. WSN: [id number] Ordering Physician: Ifeanyi Barber Dictated By: Jazmyn Porras MD Dictated Date/Time: 03/10/22 11:27 a Reviewed By: Patrice Meza MD, V Signed By: Patrice Meza MD, V Signed Date/Time: 03/10/22 11:32 am Transcribed By: CSLizeth Transcribed Date/Time: 03/10/22 10:47 am Vital Signs Most recent to oldest 1 2 3 [Reference Range]: Oxygen Saturation [94-100 100 % 100 % 100 % %] (03/10/22 1:28 PM) (03/10/22 11:29 AM) (03/10/22 9:30 AM) Pulse Rate [55-90 bpm] 90 bpm 88 bpm 94 bpm (03/10/22 1:28 PM) (03/10/22 11:29 AM) *H* (03/10/22 9:30 A M) Blood Pressure 146/86 mm Hg 150/90 mm Hg 155/100 mm Hg [90-138/55-84 mm Hg] *H* *H* *H* (03/10/22 1:28 PM) (03/10/22 11:29 AM) (03/10/22 9:30 AM) Respiratory Rate [16-30 24 br/min 24 br/min 22 br/mi n br/min] (03/10/22 1:28 PM) (03/10/22 11:29 AM) (03/10/22 9:30 AM) Temperature [96.8-100.4 97.8 DegF 97.7 DegF 97.6 Deg F DegF] (03/10/22 9:30 AM) (03/10/22 7:53 AM) (03/10/22 3:11 AM) Mode of Delivery (Oxygen) Room air Room air Room a ir (03/10/22 1:28 PM) (03/10/22 11:29 AM) (03/10/22 9:30 AM) Blood pressure sites Arm, right Arm, right Arm, right (03/10/22 1:28 PM) (03/10/22 11:29 AM) (03/10/22 9:30 AM) Temperature Route Oral Oral Oral (03/10/22 9:30 AM) (03/10/22 7:53 AM) (03/10/22 3:11 AM) Social History Social History Type Response Smoking Status 10 or more cigarettes (1/2 p ack or more)/day in last 30 days entered on: 01/21/22 Sex XR Foot - right GE 3 Views [facility] , CIS S: Jazmyn Ross MD: Patrice Blanca MD, V: VERIFY Event Display: Result: Authored Date: Foot Min 3 Views Right, 3 views Hx of Present Illness: pt states he has right wrist and bilat leg pain; Reason: Pain; Clinical Question(s): Arthritis COMPARISON: Ankle radiographs from 02/22/2022. FINDINGS: No fractures or bone lesions. No arthritic changes. Small plantar spurs at the cuboid and calcaneus. Mild soft tissues thickening at the plantar aspect of the forefoot. IMPRESSION: No acute fracture. I have personally reviewed the images and I agree with this report. WSN: [id number] Ordering Physician: Ifeanyi Barber Dictated By: Jazmyn Porras MD Dictated Date/Time: 03/10/22 11:09 a Reviewed By: Patrice Meza MD, V Signed By: Patrice Meza MD, V Signed Date/Time: 03/10/22 11:14 am Transcribed By: RADHA Transcribed Date/Time: 03/10/22 10:50 am XR Wrist - left GE 3 Views [facility] , CIS S: Jazmyn Ross MD: Patrice Blanca MD, V: VERIFY Event Display: Result: Authored Date: Wrist Comp Min 3 Views Left Hx of Present Illness: pt states he has right wrist and bilat leg pain; Reason: Pain; Clinical Question(s): Arthritis COMPARISON: None. FINDINGS: No fracture or dislocation. Small corticated ossicle at the base of the first metacarpal, normal variant. No arthritic change. Normal carpal configuration. Intact radial and ulnar styloid processes. Normal soft tissues. IMPRESSION: No acute abnormality. I have personally reviewed the images and I agree with this report. WSN: [id number] Ordering Physician: Ifeanyi Barber Dictated By: Jazmyn Porras MD Dictated Date/Time: 03/10/22 11:10 a Reviewed By: Patrice Meza MD, V Signed By: Patrice Meza MD, V Signed Date/Time: 03/10/22 11:15 am Transcribed By: RADHA Transcribed Date/Time: 03/10/22 10:53 am XR Knee - right 1 or 2 Views BHSPowerscrirenny , CIS S: TRANSCRIBE Jazmyn Porras MD: SIGN Patrice Meza MD, V: VERIFY Event Display: Result: Authored Date: [id number] Knee 1 or 2 Views Right, 2 views Hx of Present Illness: pt states he has right wrist and bilat leg pain; Reason: Pain; Clinical Question(s): Arthritis COMPARISON: None. FINDINGS: There is no evidence of acute or healing fracture, dislocation or bone lesion. Minimal degenerative changes at the knee joint with severe narrowing of the medial compartment. No evidence of joint effusion. IMPRESSION: No acute abnormality. Degenerative changes with severe narrowing of the medial compartment. I have personally reviewed the images and I agree with this report. WSN: [id number] Ordering Physician: Ifeanyi Barber Dictated By: Jazmyn Porras MD Dictated Date/Time: 03/10/22 11:27 a Reviewed By: Patrice Meza MD, V Signed By: Patrice Meza MD, V Signed Date/Time: 03/10/22 11:32 am Transcribed By: RADHA Transcribed Date/Time: 03/10/22 10:47 am Patient Care team information Care Team PersonnelName: Not on Staff, PCP Position: [facility] Physician (General Medicine) Member Role: PCP Name: Phuong Thornton RN Position: [facility] ED RN W/OE and Tasks Member Role: Patient Care Provider Name: Ifeanyi Mena Position: [facility] Associate Professional Member Role: ED Physician Inspector [employer] Address: Address: [address] [place] [id number] Name: Cait Hagen Position: [facility] ED TA [facility] Member Role: Patient Care Provider Name: Devika Duque DO Position: [facility] ED Medicine MD Member Role: Admitting Physician Address: Address: [address] [place] [address]- Care Team Related PersonsName: NO ONE, PT STATES
--- OUTSIDE RECORDS SUMMARY | 2022-07-04 20:51 | XMS_ITS | Continuity of Care Document ---
:1965 Author Organization [facility] Address [address] [place] [address]- Care Team Providers Name Role Phone Not on Staff, PCP Primary Care Physician Unavailable [facility]counter [facility] Date[facility]s): 03/[facility]/22 - 03/21/22 [facility] [address] [place] [address]- Discharge Disposition: A-D/C Home Attending Physician: Jessica Salmon MD Admitting Physician: Jessica Salmon MD Referring Physician: Not on Staff, Referring [...] 2 3 [Reference Range]: Oxygen Saturation [94-100 96 % 99 % 100 % %] (03/21/22 10:55 AM) (03/21/22 1:20 AM) (03/20/22 8:22 PM) Pulse Rate [55-90 bpm] 85 bpm 92 bpm 94 bpm (03/21/22 10:55 AM) *H* *H* (03/21/22 1:20 AM) (03/20/22 8:2 2 PM) Blood Pressure 135/98 mm Hg 146/98 mm Hg 149/98 mm Hg [90-138/55-84 mm Hg] (03/21/22 10:55 AM) *H* *H* (03/21/22 1:20 AM) (03/20/22 8:2 2 PM) Respiratory Rate [16-30 18 br/min 20 br/min br/min] (03/21/22 10:55 AM) (03/20/22 8:22 PM) Temperature [96.8-100.4 97.5 DegF 98 DegF DegF] (03/21/22 10:55 AM) (03/20/22 8:22 PM) Mode of Delivery (Oxygen) Room air Room air Room a ir (03/21/22 10:55 AM) (03/21/22 1:20 AM) (03/20/22 8:22 PM) Blood pressure sites Arm, left Arm, right Arm, right (03/21/22 10:55 AM) (03/21/22 1:20 AM) (03/20/22 8:22 PM) Temperature Route Oral Oral (03/21/22 10:55 AM) (03/20/22 8:22 PM) Social History Social History Type Response Smoking Status 10 or more cigarettes (1/2 p ack or more)/day in last 30 days entered on: 01/21/22 Sex Note Luis Antonio ALVAREZ, Jessica Self: PERFORM Event Display: Patient Education Leaflets Authored Date: [id number] [facility] - If you need a Doctor or Clinic ?? 34 If You Need a Doctor or Clinic ?? Call [facility] PCP Assignment Line to help you find a doctor:?? [phone] ?? Clinics in [place], [place] For a full list of clinics:? [email or web address] ?? [facility]? [address] [phone] [facility] Internal medicine Clinic?[address]?[phone] [facility]?[address][phone] [facility]?[address][phone] [facility]?[address] [phone] [facility]?[address][phone] [facility]?[address][phone] [facility]?[address] [phone] [facility]? [address][phone] [facility]?[address][phone] [facility]?[address][phone] [facility]?[address][phone] [facility]?[address][phone] [facility]? [address][phone] [facility]?[address][phone] ?Luis Antonio ALVAREZ, Jessica Self: PERFORM Event Display: Patient Education Leaflets Authored Date: [id number] Chronic Pain ?? [id number] Chronic Pain Pain??serves an important role. It [...] learn more For more information, contact: ??? [place] [employer] at americanheadachesociety.org or 562-195-8457 ??? [place] [employer] at theacpa.org or 013-609-1970 ?? Last Reviewed Date: 2021 ?? [employer]. All rights reserved. This information is not intended as a substitute for professional medical care. Always follow your healthcare professional's instructions. ?? Patient Care team information Care Team PersonnelName: Not on Staff, PCP Position: [facility] Physician (General Medicine) Member Role: PCP Care Team Related PersonsName: NO ONE, PT STATES
[2022-07-04 21:49] VITALS: BP 138/100; PULSE 92; RESP 15; TEMP 36.6; O2SAT 97
== END 2022-07-04 23:52 | disposition home or self-care (01) ==
PROVIDERS: Emergency Provider Internal Medicine
DX: M79.671 Pain in right foot (principal); M79.672 Pain in left foot; I10 Essential (primary) hypertension; E66.01 Morbid (severe) obesity due to excess calories; Z68.43 Body mass index [BMI] 50.0-59.9, adult; Z59.02 Unsheltered homelessness; R32 Unspecified urinary incontinence
CPT/HCPCS: 99282; 99283

== ENCOUNTER 2022-07-05 01:09 | Emergency (ER) | payer MEDICARE, MEDICAID, SELFPAY ==
[2022-07-05 01:39] VITALS: BMI 43.0
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
[2022-07-05 03:23] LABS: MANUAL DIFF FLAG NO
[2022-07-05 03:25] LABS: Basophils Percent Auto 0.6 % (0-2); Eosinophils Absolute Auto 0.1 X10*3/uL (0.0-0.4); Hematocrit 36.7 % (42.0-52.0); Hemoglobin 11.7 g/dl (14.0-18.0); Imm Gran Abs Auto 0.01 X10*3/uL (0.00-0.03); Imm Gran Pct Auto 0.2 % (0.0-0.4); Lymphocytes Absolute Auto 1.2 X10*3/uL (1.2-4.9); Lymphocytes Percent Auto 18.2 % (20-40); Mean Corpuscular HGB Conc 31.9 g/dl (31.0-36.0); Mean Corpuscular Hemoglobin 28.4 pg (27.0-33.0); Mean Corpuscular Volume 89.1 fL (80.0-98.0); Mean Platelet Volume 9.1 fL (9.4-12.4); Monocytes Absolute Auto 0.4 X10*3/uL (0.1-1.2); Monocytes Percent Auto 5.7 % (2-11); Neutrophils Absolute Auto 4.8 x10*3/uL (2.0-8.3); Neutrophils Percent Auto 73.3 % (45-73); Platelet Count 322 X10*3/uL (160-400); Red Blood Count 4.12 X10*6/uL (4.60-5.80); Red Cell Distribution Width 17.6 % (11.0-16.0); White Blood Count 6.5 X10*3/uL (4.8-10.8)
[2022-07-05 03:27] LABS: Appearance Urine Clear; Color Urine Yellow; Glucose Urine UA Negative (Negative); Leukocyte Esterase Urine Negative (Negative); Nitrite Urine Negative (Negative); PH 6.5 (5.0-9.0); Specific Gravity - Urine <= 1.005 (1.005-1.025); Urine Blood Negative (Negative); Urine Ketones Negative (Negative); Urine Protein Negative (Neg-Trace)
[2022-07-05 03:48] LABS: Alanine Aminotransferase 10 U/L (0-40); Albumin Level 3.5 g/dL (3.5-5.0); Alkaline Phosphatase 75 U/L (39-117); Anion Gap 12 (12-20); Aspartate Amino Transferase 14 U/L (5-37); Bilirubin Direct 0.4 mg/dL (0.0-0.5); Bilirubin Total 0.8 mg/dL (0.0-1.0); Blood Urea Nitrogen 12 mg/dL (9-16); Calcium 8.8 mg/dL (8.4-10.2); Carbon Dioxide 27 mmol/L (22-29); Chloride 107 mmol/L (96-108); Creatinine Clr Calc Pharmacy 118.1; Estimated Glomerular Filt Rate > 60; Ethanol < 10 mg/dL; Glucose Random 110 mg/dL (60-115); Potassium 3.3 mmol/L (3.3-5.1); Sodium 143 mmol/L (135-145); Total Protein 6.4 g/dL (6.5-8.0)
[2022-07-05 03:50] VITALS: PULSE 90; O2SAT 97
[2022-07-05 03:52] LABS: COVID-19 Test Negative (Negative); IDNOW Serial# 6674DD1D
[2022-07-05 04:02] LABS: Amphetamine Screen Urine Not Detected (Not Detect); Barbiturates, Urine Not Detected (Not Detect); Benzodiazepines Screen Urine Not Detected (Not Detect); Cannabinoid Screen Urine Not Detected (Not Detect); Cocaine Screen Urine Not Detected (Not Detect); Fentanyl, urine Not Detected (Not Detect); Opiate Screen Urine Not Detected (Not Detect); Phencyclidine Screen Urine Not Detected (Not Detect)
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
== END 2022-07-05 05:55 | disposition home or self-care (01) ==
PROVIDERS: Emergency Provider Emergency Medicine
DX: R45.851 Suicidal ideations (principal); Z59.00 Homelessness unspecified; Z76.5 Malingerer [conscious simulation]; E66.01 Morbid (severe) obesity due to excess calories; Z68.41 Body mass index [BMI] 40.0-44.9, adult; Z20.822 Contact with and (suspected) exposure to COVID-19
CPT/HCPCS: 80048; 80076; 80307; 81003; 82077; 85025; 87635; 99285

== ENCOUNTER 2022-07-05 16:03 | Emergency (ER) | payer MEDICARE, MEDICAID, SELFPAY ==
--- NOTE | 2022-07-05 16:11 | ED.GENADULT ---
HPI - General Adult General Chief complaint: Extremity Problem Stated complaint: Rt foot pain Time Seen by Provider: 07/05/22 16:11 Source: patient, EMS and old records reviewed Mode of arrival: EMS Limitations: no limitations History of Present Illness HPI narrative: 57-year-old male with history of morbid obesity, homelessness, chronic joint pains, malingering who was just seen here in the emergency department yesterday presents back to the ER via EMS for right foot pain. He states he left here and went to the police station where he slept. EMS picked him up from there today. Patient states the pain is acute on chronic. No injuries. He was here for left foot pain yesterday. His feet look the same, symmetrical, no injuries or ulcers. complaint: chronic pains, homelessness Onset (ago): year(s) Location: right and lower extremity Radiation: non-radiation Severity: moderate Quality: aching Pain Consistency: constant Relieving factors: none Exacerbating factors: other (walking) Treatments prior to arrival: none Related Data Previous Rx's Medication Instructions Recorded naproxen 500 mg tablet 500 mg PO BID PRN pain 10 days #20 06/22/22 tabs Allergies Allergy/AdvReac Type Severity Reaction Status Date / Time No Known Allergies Allergy Verified 04/04/22 14:29 Review of Systems Review of Systems: Yes all other systems are reviewed and are negative PMFSH Past Medical History Medical History Ankle pain, right Bronchitis Chronic pain Depression Left foot pain Leg pain, right Severe obesity Social History Social History Alcohol intake: unknown Smoked in Last 30 Days: No Use of substances other than those prescribed or required for medical reasons: Unknown Advance Directives: No Advance Directives Information Provided: No Physical Exam ED Vital Signs: Vital Signs - 24 hr 07/05/22 16:13 07/05/22 16:38 Temperature 96.7 F L Pulse Rate 89 90 Respiratory Rate 18 22 H Blood Pressure 137/95 H 126/102 H Pulse Oximetry 98 95 Oxygen Delivery Method Room Air Room Air BMI result Body Mass Index 49.4 Appearance: Alert. Oriented X3. No acute distress. HEENT: normal inspection CVS: Normal heart rate and rhythm. Pulses normal. Respiratory: No respiratory distress. speaking complete sentences Skin: Skin warm and dry. Normal skin color. Normal skin turgor. No rashes. Extremities: Chronic venous stasis changes, lower extremity edema with dry skin on the soles of the bilateral feet without any evidence of trauma, wounds or ulcers. Neuro: Oriented X 3. moves all extremities, nonfocal Medications Administered Discontinued Medications Generic Name Dose Route Start Last Admin Trade Name Freq PRN Reason Stop Dose Admin Acetaminophen 975 mg 07/05/22 16:15 07/05/22 16:20 Acetaminophen 325 Mg Tablet PO 07/05/22 16:16 975 mg ONCE ONE Administration Ibuprofen 600 mg 07/05/22 16:15 07/05/22 16:20 Ibuprofen 600 Mg Tablet PO 07/05/22 16:16 600 mg ONCE ONE Administration Medical Decision Making Medical Decision Making [facility] Narrative: 57-year-old morbidly obese homeless man with chronic pain presents to the ER for atraumatic feet pain for the last few hours. He was recently discharged from this facility early this morning. He required police escort to be removed. He required similar discharges and trespassing orders from [facility]. Unfortunately we are back in the same place, no medical need to stay in the emergency department he is here asking for food and a place to sleep. He has been banned from multiple local homeless shelters for aggressive behavior. Given another list of homeless shelters to call. Living room close the 19:00 is not available for overnight stays. He is not suicidal or in crisis. He is stable for discharge Differential Diagnosis Differential Diagnoses: The differential diagnosis associated with the presentation includes homelessness, malingering, chronic pain, arthritis External Record Review External record reviewed: Outpatient record ER visits reviewed Chronic Conditions Patient?s care impacted by: Other ( morbid obesity) Social Determinants Patient?s care significantly limited by Social Determinants of Health including: Inadequate housing, Problems related to primary support group and Unemployment Critical Care Time Critical Care Time Critical Care Time: No Discharge Plan Discharge Clinical Impression: Homeless, Chronic pain Patient Disposition: Home, Self-Care Instructions: Chronic Pain (ED) Prescriptions: No Action naproxen 500 mg tablet 500 mg PO BID PRN (Reason: pain) 10 Days Qty: 20 0RF
[2022-07-05 16:13] VITALS: BP 125/89; BP 137/95; PULSE 89; RESP 18; TEMP 35.9; O2SAT 97; O2SAT 98; BMI 49.4
[2022-07-05] MEDS: Acetaminophen 325 MG TABLET 975 MG PO (16:20)
[2022-07-05] MEDS: Ibuprofen 600 MG TABLET PO (16:20)
[2022-07-05 16:38] VITALS: BP 126/102; PULSE 90; RESP 22; O2SAT 95
--- NOTE | 2022-07-05 16:55 | PC.NURSE ---
Pt endorses depression relating to homelessness status. Denies SI/HI/AH/VH
--- NOTE | 2022-07-05 18:10 | PC.NURSE ---
security called to bedside. d/c instructions given.
== END 2022-07-05 18:16 | disposition home or self-care (01) ==
PROVIDERS: Emergency Provider Student in an Organized Health Care Education/Training Program
DX: G89.29 Other chronic pain (principal); M79.671 Pain in right foot; Z59.00 Homelessness unspecified; Z76.5 Malingerer [conscious simulation]; E66.01 Morbid (severe) obesity due to excess calories; Z68.42 Body mass index [BMI] 45.0-49.9, adult; R60.0 Localized edema
CPT/HCPCS: 99284

== ENCOUNTER 2022-07-05 19:31 | Emergency (ER) | payer MEDICARE, MEDICAID, SELFPAY ==
[2022-07-05 19:37] VITALS: BP 136/79; PULSE 97; O2SAT 100
[2022-07-05 20:09] VITALS: BP 157/123; PULSE 94; RESP 18; TEMP 36; O2SAT 100; BMI 50.3
--- NOTE | 2022-07-05 20:09 | ED_ITS ---
HPI - General Adult General Chief complaint: General Medical Stated complaint: COLD,LEG PAIN Time Seen by Provider: 07/05/22 20:14 Source: patient and EMS Mode of arrival: EMS Limitations: no limitations History of Present Illness HPI narrative: Patient is a 57 year old assigned male at with a history of HTN presenting to the emergency department today requesting a hot meal and place to stay. Patient states that he is homeless and has no where to go. Patient states that he used to be on psychiatric medications and would like resources to get started back on those and his high blood pressure medications. When asked what medications these were, patient is unable to tell me. Patient initially had multiple complaints and stated that he just wanted to be kept in the hospital to be out of the cold. Patient denies any dizziness, lightheadedness, abdominal pain, nausea, vomiting, fever, chills, blurry vision, double vision, loss of vision, chest pain, difficulty breathing, shortness of breath, back pain, night sweats, pain with urination, increased urinary frequency, increased urinary urgency, blood in his urine or stool, syncope or a near syncopal episode, recent trauma or falls, bowel incontinence, bladder incontinence, bowel retention, bladder retention, or any other complaints at this time. Patient denies any thoughts of hurtig himself or others. Associated symptoms: denies other symptoms Related Data Previous Rx's Medication Instructions Recorded naproxen 500 mg tablet 500 mg PO BID PRN pain 10 days #20 06/22/22 tabs Allergies Allergy/AdvReac Type Severity Reaction Status Date / Time No Known Allergies Allergy Verified 07/05/22 20:17 Review of Systems Constitutional: Constitutional: Reports no additional constitutional complaints, Denies chills, Denies fever(s) and Denies night sweats Eyes: Eyes: Reports no additional eye complaints, Denies blurry vision, Denies change in vision, Denies diplopia, Denies eye discharge, Denies loss of vision and Denies eye pain ENT: Denies dizziness Cardiovascular: Cardiovascular: Reports no additional cardiovascular complaints, Denies chest pain, Denies lightheadedness, Denies Loss of Consciousness and Denies dyspnea Respiratory: Respiratory: Reports no additional respiratory complaints and Denies dyspnea Gastrointestinal: Gastrointestinal: Reports no additional gastrointestinal complaints, Denies abdominal pain, Denies melena, Denies hematochezia, Denies change in bowel habits and Denies change in stool character Genitourinary: Genitourinary: Reports no additional male genitourinary complaints, Denies hematuria, Denies oliguria, Denies difficulty urinating, Denies dysuria, Denies urinary frequency, Denies urinary hesitancy, Denies urinary incontinence and Denies urinary urgency Musculoskeletal: Musculoskeletal: Reports no additional musculoskeletal complaints, Denies numbness and Denies tingling Neurologic: Denies dizziness, Denies loss of vision, Denies numbness and Denies tingling Psychiatric: Psychiatric: Reports no additional psychiatric complaints Endocrine: Endocrine: Reports no additional endocrine complaints Hematologic/Lymphatic: Hematologic/Lymphatic: Reports no additional hematologic/lymphatic complaints Allergic/Immunologic: Allergic/Immunologic: Reports no additional allergic/immunologic complaints PMFSH Past Medical History Attestation statement: The following information was validated with the patient. Source: old records reviewed and nursing notes reviewed Medical History Ankle pain, right Bronchitis Chronic pain Depression Left foot pain Leg pain, right Severe obesity Social History Social History Alcohol intake: unknown Advance Directives: No Advance Directives Information Provided: No Physical Exam ED Vital Signs: Vital Signs - 24 hr 07/05/22 20:09 Temperature 96.8 F Pulse Rate 94 Respiratory Rate 18 Blood Pressure 157/123 H Pulse Oximetry 100 Oxygen Delivery Method Room Air BMI result Body Mass Index 50.3 Const General: cooperative, no acute distress, alert and awake Nutritional Appearance: well nourished Orientation/consciousness: patient oriented x3 Limitations: no limitations [facility] Head: Yes normal to inspection and Yes atraumatic Ears: hearing grossly normal bilaterally and external ears normal General nose exam: Normal external nose present, no nasal discharge noted and no epistaxis Face and sinus: Yes normal facial exam, No abrasion and No laceration Mouth: Normal oral and palatal mucosa present, no drooling and no muffled voice Eyes General: appearance normal, both eyes and all related structures Periorbital: periorbital findings normal Eyelids: Yes eyelids normal Conjunctivae: conjunctivae normal Pupils: Equal, round and reactive pupils present EOM: EOMs intact bilaterally Neck Neck: Yes normal visual inspection, Yes full ROM and Yes no lymphadenopathy Chest Chest palpation & inspection: normal inspection of the chest Resp Effort & Inspection: normal respiratory effort and able to speak in complete sentences Auscultation: clear to auscultation bilaterally Cardio Rate: regular rate Rhythm: regular rhythm GI Inspection: Yes normal to inspection Neuro General: patient oriented x3 and moves all extremities Cranial nerves: Yes Equal, round and reactive pupils present Cognition (Neuro): normal cognition Motor exam (neuro): 5/5 motor strength present throughout Sensory Exam: Normal double simultaneous stimulation for sensation Coordination: [id number] test normal Extrem General: Yes normal to inspection, Yes full ROM and Yes capillary refill normal Psych Appearance: grossly normal Mental Status: mental status grossly normal Affect: normal affect Attitude: cooperative Thought process: Normal thought process present Thought content: Normal thought content present Insight: Good insight present (Psych) Medical Decision Making Medical Decision Making MDM Narrative: Patient is a 57 year old assigned male at with a history of HTN presenting to the emergency department today with requesting prison and food. Patient's physical exam was unremarkable. I explained my physical exam findings to the patient. I answered all questions asked by the patient. I spent a great deal of time explaining to the patient that while we are an institution designed to help people, we cannot help him in his current situation past what we have already done which includes allowing him to stay in the department for hours on end, feeding him, compiling a list of shelters and other housing resources, psychiatric clinic resources, and transportation to shelters. The patient has presented to the emergency department multiple times over the last few months with the same presentation in attempts to stay off the street. The patient is ambulatory and able to safely complete all of his ADLs. I stressed the importance of the patient taking his medication as prescribed. I stressed the importance of the patient following up with a primary care provider. I stressed the importance of the patient returning to the emergency department immediately if he were to develop any dizziness, shortness of breath, difficulty breathing, chest pain, blurry vision, loss of vision, nausea, vomiting, abdominal pain, fever, chills, back pain, or any other complaints. Patient verbalized agreement and understanding with this treatment plan and discharge. Differential Diagnosis Differential Diagnoses: The differential diagnosis associated with the presentation includes homelessness Discharge Plan Discharge Clinical Impression: Homeless, Malingering, Chronic pain Patient Disposition: Home, Self-Care Instructions: Chronic Pain (ED) Additional Instructions: Follow up with a primary care provider and at one of the walk in psychiatric providers. Return to the emergency department immediately if your symptoms worsen or if you develop any dizziness, shortness of breath, difficulty breathing, chest pain, blurry vision, loss of vision, nausea, vomiting, ab dominal pain, fever, chills, back pain, or any other complaints. [facility] ([facility]) at [facility]: [address], [place] [id number] Open from 10am - 12pm [facility] Crisis Services: [address], [place] [id number] Open 17/11 Behavioral health Network: [address] [place] [address] AND [address] [place] [address] Hours: M-F 8am to 8pm Thursday and Thursday 9am to 5pm Prescriptions: No Action naproxen 500 mg tablet 500 mg PO BID PRN (Reason: pain) 10 Days Qty: 20 0RF Referrals: [facility] Family Medicine [Provider Group] (Call to establish and follow up with a primary care provider. If you already have a primary care provider, please follow up with them.) [facility] [Provider Group] (Call to establish and follow up with a primary care provider. If you already have a primary care provider, please follow up with them.) [facility] Primary Care,[facility] [Provider Group] (Call to establish and follow up with a primary care provider. If you already have a primary care provider, please follow up with them.) Interventions: ED Discharge Assessment Last Done: 07/05/22 20:20 Discharge Date/Time: 07/05/22 20:21 Print Language: Croatian
--- NOTE | 2022-07-05 20:18 | PC.NURSE ---
pt discharged from waiting room by provider, given a list of resources for outpt follow up care.
--- NOTE | 2022-07-05 20:18 | PC.NURSE ---
pt a&ox3, hypertensive, other vss, pt RR is even and unlabored, pt is well appearing, asking for assistance with multiple resources, pt has been given resources over past 3 visits over 24hrs.
== END 2022-07-05 20:21 | disposition home or self-care (01) ==
LOC: HO.ED 20:18
PROVIDERS: Emergency Provider Student in an Organized Health Care Education/Training Program
DX: G89.29 Other chronic pain (principal); Z59.00 Homelessness unspecified; Z76.5 Malingerer [conscious simulation]; I10 Essential (primary) hypertension; Z79.899 Other long term (current) drug therapy; Z20.822 Contact with and (suspected) exposure to COVID-19
CPT/HCPCS: 80048; 80076; 80307; 81003; 82077; 85025; 87635; 99282; 99283; 99284; 99285